=== PATIENT | male | born 1960 | race Caucasian/White ===

== ENCOUNTER → 2018-03-04 | Outpatient (CLI) | payer MEDICARE ==
[2018-03-04 13:56] LABS: Basophils # (A) 0.1 k/uL (0-0.2); Basophils % (A) 1 %; Eosinophils # (A) 0.3 k/uL (0-0.7); Eosinophils % (A) 3 %; HCT 51.6 % (39.0-53.0); Lymphocytes # (A) 2.7 k/uL (1.0-4.8); Lymphocytes % (A) 35 %; MCH 29.3 pg (25.0-35.0); MCV 88.9 fL (80.0-100.0); Mean Platelet Volume 6.4; Monocytes # (A) 0.6 k/uL (0-1.0); Monocytes % (A) 8 %; Neutrophils # (A) 3.8 k/uL (1.3-7.7); Neutrophils % (A) 51 %; Platelet Count 221 k/uL (150-450); RBC 5.81 m/uL (4.30-5.90); RDW 12.8 % (11.5-15.5); WBC 7.6 k/uL (3.8-10.6)
[2018-03-04 14:13] LABS: ALT 36 U/L (21-72); AST 33 U/L (17-59); Albumin 4.3 g/dL (3.5-5.0); Alkaline Phosphatase 65 U/L (38-126); Anion Gap 10 mmol/L; Blood Urea Nitrogen 18 mg/dL (9-20); Calcium 9.7 mg/dL (8.4-10.2); Carbon Dioxide 30 mmol/L (22-30); Chloride 101 mmol/L (98-107); Glucose 147 mg/dL (74-99); Potassium 4.6 mmol/L (3.5-5.1); Sodium 141 mmol/L (137-145); Total Bilirubin 0.8 mg/dL (0.2-1.3); Total Protein 7.3 g/dL (6.3-8.2)
== END | disposition home or self-care (01) ==
LOC: LABPAT 13:18
PROVIDERS: ATTEND Urology
DX: Z01.818 Encounter for other preprocedural examination (principal); N52.31 Erectile dysfunction following radical prostatectomy; I10 Essential (primary) hypertension; Z79.899 Other long term (current) drug therapy; Z01.812 Encounter for preprocedural laboratory examination
CPT/HCPCS: 36415; 80053; 85025; 93005

== ENCOUNTER 2018-03-11 07:06 | Day surgery (SDC) | payer MEDICARE ==
[2018-03-07 15:05] VITALS: BMI 28.8
--- NOTE | 2018-03-08 20:46 | P.GSHP ---
History of Present Illness H&P Date: 03/08/18 Chief Complaint: Erectile dysfunction secondary to radical prostatectomy The patient is a 57-year-old male with a history of prostate cancer which was diagnosed in 2009 and treated with radical prostatectomy in [facility] later that year. He has had no recurrence of his cancer and his last PSA was less than 0.1 in 01/2018. He developed erectile dysfunction following the radical prostatectomy. He initially used a vacuum assisted erectile device but said that it never worked well. He has tried Viagra and Cialis with no improvement. I discussed intracorporeal vasoactive injections but the patient says that he is not interested in this. I reviewed surgical treatment via placement of an inflatable penile prosthesis and patient wishes to proceed with this. He does have some mild dorsal angulation which was present prior to the radical prostatectomy but otherwise had no previous history of erectile dysfunction. - Constitutional Constitutional: Denies chronic pain - Cardiovascular Cardiovascular: Denies chest pain, Denies palpitations, Denies shortness of breath - Respiratory Respiratory: Denies wheezing - Gastrointestinal Gastrointestinal: Denies abdominal pain - Genitourinary (Male) Genitourinary: Reports erectile dysfunction, Reports incontinence (Rare with activity), Denies dysuria Past Medical History Past Medical History: Cancer, Chest Pain / Angina, Diabetes Mellitus, Hypertension, Myocardial Infarction ([place]), Prostate Disorder Additional Past Medical History / Comment(s): PROSTATE CANCER Treated with robotically assisted Radical prostatectomy in 2009., HEARING LOSS LEFT EAR- SOUNDS DISTORTED. Last Myocardial Infarction Date:: 2002 History of Any Multi-Drug Resistant Organisms: None Reported Past Surgical History: Coronary Bypass/CABG, Heart Catheterization With Stent, Orthopedic Surgery, Prostate Surgery (Robotically assisted laparoscopic Prostatectomy), Tonsillectomy Additional Past Surgical History / Comment(s): RIGHT ANKLE SURGERY, ARTHROSCOPY KNEES, RIGHT ELBOW X3, SINUS SURGERY , LEFT EAR X2. HEART CATH WITH STENT 2009 OR 2010, CABG 2002 Past Anesthesia/Blood Transfusion Reactions: Postoperative Nausea & Vomiting ( PONV) Date of Last Stent Placement:: 2009 OR 2010 Past Psychological History: No Psychological Hx Reported Smoking Status: Current every day smoker Past Alcohol Use History: Rare Additional Past Alcohol Use History / Comment(s): SMOKES < 1 PPD., SMOKING ON AND OFF FOR 28 YEARS. Past Drug Use History: None Reported - Past Family History Mother Family Medical History: Cancer Father Family Medical History: Cancer Medications and Allergies Home Medications Medication Instructions Recorded Confirmed Type Aspirin 325 mg PO DAILY 03/07/18 03/07/18 History Captopril [Capoten] 25 mg PO BID 03/07/18 03/07/18 History Clopidogrel [Plavix] 75 mg PO DAILY 03/07/18 03/07/18 History Glimepiride [Amaryl] 2 mg PO AC-BRKFST 03/07/18 03/07/18 History Metoprolol Succinate (ER) [Toprol 25 mg PO DAILY 03/07/18 03/07/18 History Xl] Multivitamins, Thera [Multivitamin 1 tab PO DAILY 03/07/18 03/07/18 History (formulary)] metFORMIN HCL [Glucophage] 1,000 mg PO BID 03/07/18 03/07/18 History Allergies Allergy/AdvReac Type Severity Reaction Status Date / Time amoxicillin Allergy Unknown Rash/Hives Verified 03/07/18 14:29 Surgical - Exam - General well developed, well nourished, no distress - Neck no masses, no lymphadectomy - Respiratory normal respiratory effort, clear to auscultation - Cardiovascular Rhythm: regular Abnormal Heart Sounds: no systolic murmur, no diastolic murmur - Abdomen Abdomen: soft, non tender, no organomegaly - Genitourinary normal penis with no external lesions, testicles non-tender, other (Prostatic fossa is empty) Assessment and Plan (1) Erectile dysfunction after radical prostatectomy Status: Acute Code(s): N52.31 - ERECTILE DYSFUNCTION FOLLOWING RADICAL PROSTATECTOMY SNOMED Code(s): 573970985804304 Plan: The patient will undergo placement of a [employer] three-piece inflatable penile prosthesis under general anesthesia. He is aware of the operative risks which include anesthesia, bleeding, early or delayed infection which might require removal of the prosthesis, mechanical dysfunction of the prosthesis, persistent pain or erosion of the prosthesis and loss of penile length compared with spontaneous erections.
[~2018-03-11 07:06] MED LIST: DEXAMETHASONE SOD PHOSPHATE 10 MG/ML 1 ML VIAL IV ONE; GENTAMICIN 180 MG in SODIUM CHLORIDE 0.9% 100 ML IVPB ONE; HYDROmorphone 1 MG/ML 1 ML SYRINGE IVP PRN; LACTATED RINGERS 1,000 ML IV SCH; LEVOFLOXACIN 500MG-D5W PMX 500 MG in DEXTROSE/WATER 1 100ML.BAG IVPB ONE; MIDAZOLAM 2 MG/2 ML VIAL IV PRN; ONDANSETRON 4 MG/2 ML VIAL IVP ONE; SCOPOLAMINE 1.5MG/72HR PATCH TRANSDERM ONE
[2018-03-11] MEDS ORDERED: LIDOCAINE 1% 20 ML VIAL (10MG/ML) FOR IV START INTRADERMA ONE (07:40)
[2018-03-11 07:42] VITALS: RESP 16
[2018-03-11 07:44] LABS: Glucose,Whole Blood 166 mg/dL (75-99)
[2018-03-11] MEDS ORDERED: PROPOFOL 10 MG/ML 20 ML VIAL IV ONE (08:59)
[2018-03-11] MEDS ORDERED: MIDAZOLAM 2 MG/2 ML VIAL ONE (08:59)
[2018-03-11] MEDS ORDERED: fentaNYL (PF) 50 MCG/ML 2 ML AMP ONE (08:59)
[2018-03-11 10:47] VITALS: TEMP 97.1
--- NOTE | 2018-03-11 10:55 | P.OP ---
Date of Procedure: 03/11/18 Preoperative Diagnosis: Erectile dysfunction secondary to radical prostatectomy Postoperative Diagnosis: Erectile dysfunction secondary to radical prostatectomy Procedure(s) Performed: Placement of AMS CX inflatable penile prosthesis Surgeon: Ryan Christianson Parks Recreation Coordinator #1: Diaz Teixeira Estimated Blood Loss (ml): 15 Pathology: none sent Condition: stable Disposition: PACU Indications for Procedure: The patient is a 57-year-old male with a history of diabetes who developed erectile dysfunction following radical prostatectomy. Treatment options have been reviewed and the patient wishes to proceed with placement of an inflatable penile prosthesis. The patient has some slight dorsal curvature and for that reason a CX prosthesis has been chosen. Description of Procedure: The patient was taken the operating suite where adequate spinal anesthesia and intravenous sedation was given. The hair in the suprapubic area was clipped. The lower abdomen and groins and genitalia were then prepped with Betadine soap , painted with Betadine solution and draped in a sterile fashion. A midline suprapubic incision was made. Bleeding vessels were controlled using electrocautery. Using blunt and sharp dissection the base of the penis at the penile pubic junction was exposed. The right and left corporal bodies were exposed near the penile pubic junction. 3 cm longitudinal incisions were then made in the right and left corporal bodies. The right and left corporal bodies were then dilated proximally and distally using successive Hegar dilators from [id number]-[id number]. Both right and left corporal bodies were measured and were 8 cm proximally and 12 cm distally. It was elected to implant a an 18-Portuguese CX inflatable penile prosthesis with a 2 cm rear-tip senior librarian. The right and left inflatable cylinders were placed into the right left corporal bodies using the Mariela introducer. The corporal bodies were then closed using running 3-0 Prolene. The inflatable cylinders were inflated and there appeared to be minimal dorsal curvature. The linea alba was then incised in the suprapubic area and a space was developed using blunt dissection posterior to the rectus muscles and anterior to the bladder. A 65 cm reservoir was placed in the suprapubic space and the tubing was tunneled out to the right of the pubis through the rectus sheath and fascia. The reservoir and prosthesis had previously been evacuated from air. 65 mL of sterile saline was placed into the reservoir. The connections between the reservoir and prosthesis were made using a straight connector. The prosthesis was pumped and appeared to function and deflate well. A pouch was made in the right anterior hemiscrotum using blunt dissection and the pump was placed in the pouch. The subcutaneous tissue was closed using running 3-0 chromic. The skin was closed using sharyn. Throughout the procedure who incisions were periodically irrigated with antibiotic solution. The patient's bladder was then drained with a 16-Portuguese catheter and the catheter was removed. Sterile dressing was applied to the incision. The patient tolerated the procedure well and left the operative room awake and in satisfactory condition. Blood loss was approximately 15 mL. Final sponge needle and instrument counts were reported as correct. The patient will be discharged later in the day if he is comfortable and will return for follow-up in 1 week and dictation
[2018-03-11 11:04] LABS: Glucose,Whole Blood 240 mg/dL (75-99)
[2018-03-11] MEDS ORDERED: INSULIN ASPART 100 UNIT/ML 1 ML 10 ML VIAL SQ ONE (11:20)
[2018-03-11 11:50] LABS: Glucose,Whole Blood 222 mg/dL (75-99)
[2018-03-11 13:29] VITALS: PULSE 64
[2018-03-11 13:30] VITALS: BP 108/61
== END 2018-03-11 14:39 | disposition home or self-care (01) ==
LOC: OR 07:06
PROVIDERS: ATTEND Urology
DX: N52.31 Erectile dysfunction following radical prostatectomy (principal); R94.31 Abnormal electrocardiogram [ECG] [EKG]; Z85.46 Personal history of malignant neoplasm of prostate; E11.9 Type 2 diabetes mellitus without complications; I10 Essential (primary) hypertension; H91.92 Unspecified hearing loss, left ear; I25.119 Atherosclerotic heart disease of native coronary artery with unspecified angina pectoris; I25.2 Old myocardial infarction; Z95.1 Presence of aortocoronary bypass graft; Z95.5 Presence of coronary angioplasty implant and graft; F17.210 Nicotine dependence, cigarettes, uncomplicated; Z79.84 Long term (current) use of oral hypoglycemic drugs; Z79.02 Long term (current) use of antithrombotics/antiplatelets; Z79.82 Long term (current) use of aspirin; Z79.899 Other long term (current) drug therapy; Z88.0 Allergy status to penicillin
CPT/HCPCS: 54405; C1813; J2250; J1580; J1100; J2405; J1956; J3010; J2704

== ENCOUNTER → 2018-07-28 | Outpatient (CLI) | payer MEDICARE ==
--- NOTE | 2018-07-28 16:04 | MR ---
EXAMINATION TYPE: MR lumbar spine wo con DATE OF EXAM: 07/28/2018 COMPARISON: NONE HISTORY: Lumbar pain TECHNIQUE: T1 and T2 axial and sagittal images of the lumbar spine are submitted. FINDINGS: There is no abnormal signal seen within the visualized spinal cord or paraspinal soft tissu es. There appears be metallic artifact in the right paraspinal soft tissues near the thoracolumbar ju nction. Hypertrophic change involving the SI joints noted. At L1-2 there is no disc herniation or canal stenosis. No foraminal encroachment. At L2-3 there is no disc herniation or canal stenosis. Neural foramina patent. There is very mild dis c desiccation and circumferential disc bulging. At L3-4 there is degenerative disc disease with diffuse disc bulging or protrusion. There is mild eff acement of thecal sac. Hypertrophic change of the facets and ligamentum flavum contribute to mild elizabeth ateral foraminal encroachment and mild central stenosis. At L4-5 there is degenerative disc disease with diffuse disc bulging with a right lateral disc protru aida or herniation resulting in compression of the right nerve root. Discogenic marrow changes are no rodolfo. At L5-S1 there is facet arthropathy. No foraminal encroachment or disc herniation. No Canal stenosis. IMPRESSION: 1. At L4-L5 there is diffuse disc bulging resulting in effacement of thecal sac with hypertrophic jose nge of the facets and ligamentum flavum. There is mild central stenosis. However, there is a far righ t lateral disc herniation resulting in severe right-sided foraminal encroachment and nerve root compr ession best noted on sagittal image 10 and 11. Correlate for right-sided radiculopathy at this level. 2. Disc bulging or broad-based protrusion with hypertrophic changes L3-L4 results in bilateral forami nal encroachment and mild canal stenosis.
== END | disposition home or self-care (01) ==
LOC: RADMRIMAIN 15:06
PROVIDERS: ATTEND Internal Medicine
DX: M48.061 Spinal stenosis, lumbar region without neurogenic claudication (principal); M51.26 Other intervertebral disc displacement, lumbar region
CPT/HCPCS: 72148

== ENCOUNTER → 2019-03-22 | Outpatient (CLI) | payer MEDICARE ==
--- NOTE | 2019-03-22 22:50 | MR ---
EXAMINATION TYPE: MR knee RT wo con DATE OF EXAM: 03/22/2019 COMPARISON: NONE HISTORY: Effusion, pain, primary osteoarthritis, and other internal derangements per order. Pain and swelling for a couple weeks in both knees per patient. TECHNIQUE: Multiplanar, multisequence images of the knee is performed without IV contrast. FINDINGS: MEDIAL MENISCUS: Anterior horn is intact without tear. Posterior horn shows triangular increased sign al extending to the inferior articular surface. LATERAL MENISCUS: Anterior horn shows globular increased signal does not definitively extend to artic ular surface. Posterior horn shows more marked increased signal extending to inferior articular surfa ce sagittal image 24. CRUCIATE LIGAMENTS: The anterior and posterior cruciate ligaments are intact and unremarkable. COLLATERAL LIGAMENTS: The medial collateral ligament and lateral collateral ligament complex are inta ct and unremarkable. EXTENSOR MECHANISM: Visualized quadriceps and patellar tendons are intact. EFFUSION: There is large suprapatellar joint effusion. POPLITEAL CYST: No popliteal/mcpherson cyst. TRICOMPARTMENT SPACES: Mild to moderate tricompartment joint space loss and spurring. CARTILAGE: Thinning of articular cartilage most prominent lateral tibial femoral compartment where fu ll thickness loss is present lateral aspect. BONE MARROW SIGNAL: Reactive osseous changes distal lateral femoral condyle lateral aspect with areas of diminished T1 and increased T2 signal seen best coronal image 20 and sagittal image image 25 chavo uring approximately 15 mm AP diameter and 8 mm transversely. OTHER: No additional significant abnormality is appreciated. IMPRESSION: 1. Large suprapatellar joint effusion. 2. Fairly moderate tricompartment degenerative changes most prominent lateral tibiofemoral compartmen t as detailed above. 3. Full-thickness tear posterior horn of lateral meniscus. Probable intrasubstance tear anterior horn of lateral meniscus. 4. Full-thickness tear posterior horn of medial meniscus.
== END | disposition home or self-care (01) ==
LOC: RADMRIMAIN 07:36
PROVIDERS: ATTEND Orthopaedic Surgery
DX: S83.241A Other tear of medial meniscus, current injury, right knee, initial encounter (principal); S83.281A Other tear of lateral meniscus, current injury, right knee, initial encounter; M17.11 Unilateral primary osteoarthritis, right knee

== ENCOUNTER → 2020-07-01 | Outpatient (CLI) | payer MEDICARE ==
[2020-07-01 15:44] LABS: African American GFR (CKD) 84.1 (60.0-200.0); Anion Gap 7.6 mmol/L (4.00-12.00); BUN/Creat Ratio 13.64 Ratio (12.00-20.00); Calcium 9.9 mg/dL (8.7-10.3); Carbon Dioxide 30.4 mmol/L (21.6-31.8); Non-African American GFR(CKD) 72.6 (60.0-200.0); Potassium 5.5 mmol/L (3.5-5.5)
[2020-07-01 17:48] LABS: Hemoglobin A1C 10.3 % (4.0-6.0)
== END | disposition home or self-care (01) ==
LOC: LABWHC1 09:40
PROVIDERS: ATTEND Internal Medicine
DX: E11.9 Type 2 diabetes mellitus without complications (principal)
CPT/HCPCS: 36415; 80048; 83036

== ENCOUNTER 2020-07-05 18:10 | Emergency (ER) | payer MEDICARE ==
[2020-07-05 18:18] VITALS: BP 179/95; PULSE 72; RESP 18; TEMP 98
[2020-07-05] MEDS ORDERED: HYDROcodone/APAP 5-325MG 1 EACH TAB PO STA (18:25)
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
== END 2020-07-05 20:00 | disposition home or self-care (01) ==
LOC: EC 18:10
DX: M25.551 Pain in right hip (principal); S09.90XA Unspecified injury of head, initial encounter; E11.9 Type 2 diabetes mellitus without complications; I10 Essential (primary) hypertension; F17.200 Nicotine dependence, unspecified, uncomplicated; Z79.84 Long term (current) use of oral hypoglycemic drugs; Z79.899 Other long term (current) drug therapy; Z88.0 Allergy status to penicillin; V86.52XA Driver of snowmobile injured in nontraffic accident, initial encounter; Y92.009 Unspecified place in unspecified non-institutional (private) residence as the place of occurrence of the external cause; Y93.29 Activity, other involving ice and snow
CPT/HCPCS: 70450; 72100; 72125; 72192; 99285

== ENCOUNTER → 2020-09-13 | Outpatient (CLI) | payer MEDICARE ==
--- NOTE | 2020-09-13 16:27 | MR ---
EXAMINATION TYPE: MR lumbar spine wo con DATE OF EXAM: 09/13/2020 COMPARISON: Prior lumbar MRI 07/28/2018, plain film 07/05/2020 HISTORY: Chronic LBP, RLE radiculopathy. TECHNIQUE: Multiplanar, multisequence images of the lumbar spine were acquired. L1-L2: Normal disc appearance without desiccation. No herniation, protrusion or disc bulging. No ca nal stenosis is present. Foramina are patent bilaterally. L2-L3: Mild posterior disc bulge causes only slight anterior mass effect on the thecal sac. No signif icant foraminal encroachment. L3-L4: Posterior broad-based disc bulge causes mild anterior mass effect on the thecal sac, circumfer ential extension encroaches minimally on the inferior aspect of the foramina bilaterally. L4-L5: There is a posterior broad-based disc bulge causing anterior mass effect on the thecal sac, la teral disc herniation towards the right is again seen. There is facet arthropathy with hypertrophy li gamentum flavum. Circumferential extension of endplate disc complex as well as a lateral disc herniat ion again causes some right-sided foraminal encroachment similar to prior exam. L5-S1: Normal disc appearance without desiccation. No herniation, protrusion or disc bulging. No ca nal stenosis is present. Foramina are patent bilaterally. Lumbar segments are intact. No paraspinal masses are identified. Conus medullaris has a normal appe arance. There is a mild spinal curvature. Multilevel spondylosis is present with endplate discogenic marrow signal changes. There is been progression of loss of disc height signal at L4-5, L3-4, there i s associated vacuum phenomenon. There is no significant spinal stenosis. Suspect a conjoined nerve ro ot proximally and L5, similar appearance to prior exam. IMPRESSION: Degenerative disc disease, lateral disc herniation is similar to prior exam.
== END | disposition home or self-care (01) ==
LOC: RADMRIMAIN 15:13
PROVIDERS: ATTEND Orthopaedic Surgery Orthopaedic Surgery of the Spine
DX: M51.16 Intervertebral disc disorders with radiculopathy, lumbar region (principal); M47.26 Other spondylosis with radiculopathy, lumbar region
CPT/HCPCS: 72148

== ENCOUNTER → 2020-10-09 | Outpatient (CLI) | payer MEDICARE ==
--- NOTE | 2020-10-09 09:00 | P.CONS ---
History of Present Illness - Reason for Consult Consult date: 10/09/20 - Chief Complaint Low back and right leg pain - History of Present Illness This is a 60-year-old gentleman with history of chronic lower back pain with radiation to the right leg down to the right knee without numbness or tingling. The patient also denies any bowel or bladder dysfunction however he has some weakness in the right leg and uses crutches for ambulation. The pain increases by prolonged activities and improves by resting. The patient had lumbar epidural steroid injection a few years ago which helped him significantly with his pain however his bill was too high and he decided not to do that again. The patient takes Plavix and aspirin due to history of coronary artery disease and previous CABG he also has history of asg-pfmjynr-sxcjjwvoz diabetes. The patient was referred by Dr. Stanton for a trial of epidural steroid injections. He had lumbar MRI in August 2020 which showed disc herniation at the L4 5 level towards the right side facet arthropathy with hypertrophy of the ligamentum flavum. Review of Systems Respiratory: Denies cough Gastrointestinal: Denies abdominal pain, Denies diarrhea, Denies nausea, Denies vomiting Musculoskeletal: Reports as per HPI Neurological: Reports as per HPI Endocrine: Reports as per HPI Past Medical History Past Medical History: Cancer, Diabetes Mellitus, Hypertension, Musculoskeletal Disorder, Prostate Disorder Additional Past Medical History / Comment(s): hx. prostate cancer 2010, herniated discs History of Any Multi-Drug Resistant Organisms: None Reported Past Surgical History: Coronary Bypass/CABG, Heart Catheterization With Stent, Orthopedic Surgery, Prostate Surgery Additional Past Surgical History / Comment(s): R ankle, R elbow x3, B knee arthroscopy, L ear, sinus surg., triple bypass 17 yrs. ago, prostatectomy Past Anesthesia/Blood Transfusion Reactions: Postoperative Nausea & Vomiting (PONV) Date of Last Stent Placement:: 2019 Past Psychological History: No Psychological Hx Reported Smoking Status: Current every day smoker Past Alcohol Use History: Rare Additional Past Alcohol Use History / Comment(s): <ppd on & off for 40 yrs. Past Drug Use History: Marijuana Additional Drug Use History / Comment(s): occasional use Medications and Allergies Home Medications Medication Instructions Recorded Confirmed Type Aspirin 81 mg PO DAILY 03/07/18 10/07/20 History Clopidogrel [Plavix] 75 mg PO DAILY 03/07/18 10/07/20 History Glimepiride [Amaryl] 2 mg PO BID 03/07/18 10/07/20 History Metoprolol Succinate (ER) [Toprol 25 mg PO DAILY 03/07/18 10/07/20 History Xl] Multivitamins, Thera [Multivitamin 1 tab PO DAILY 03/07/18 10/07/20 History (formulary)] captopriL [Capoten] 25 mg PO DAILY 03/07/18 10/07/20 History metFORMIN HCL [Glucophage] 1,000 mg PO BID 03/07/18 10/07/20 History oxyCODONE-APAP 10-325MG [Percocet 1 tab PO Q8HR PRN 10/07/20 10/07/20 History 10-325 mg] Allergies Allergy/AdvReac Type Severity Reaction Status Date / Time amoxicillin Allergy Unknown Rash/Hives Verified 10/07/20 14:33 Physical Exam Vitals: Vital Signs Temp Pulse Resp BP Pulse Ox 10/09/20 08:46 97.9 F 74 16 166/77 98 - Constitutional General appearance: average body habitus - EENT Eyes: PERRLA - Neurologic Decreased right knee flexion and extension to 4 out of 5 and right hip flexion and extension to 4 out of 5. Straight leg raising test negative bilaterally Positive tenderness in the lumbar paravertebral musculature laterally Neurologic: CNII-XII intact - Psychiatric Psychiatric: A&O x's 3, appropriate affect, intact judgment & insight Assessment and Plan Plan: This is a 60-year-old gentleman with history of diabetes, coronary artery disease, treatment with Plavix and aspirin and right lumbar radiculopathy due to lumbar disc herniation at the L4 5 level. The patient may benefit from a trial of lumbar epidural steroid injection at the L4 5 level in the right paramedian approach under fluoroscopic guidance. 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 Stanton for the referral
== END ==
CPT/HCPCS: 99211

== ENCOUNTER 2020-11-05 06:09 | Day surgery (SDC) | payer MEDICARE ==
[2020-11-04 10:29] VITALS: BMI 27.3
[2020-11-05 06:32] VITALS: TEMP 97.8
[2020-11-05 06:41] LABS: Glucose,Whole Blood 163 mg/dL (75-99)
[2020-11-05] MEDS: LACTATED RINGERS 1,000 ML IV SCH ×2 (06:42→07:02)
[2020-11-05] MEDS ORDERED: IOPAMIDOL M200 10 ML VIAL ONE (07:03)
[2020-11-05] MEDS ORDERED: fentaNYL (PF) 50 MCG/ML 2 ML AMP ONE (07:03)
[2020-11-05] MEDS ORDERED: MIDAZOLAM 2 MG/2 ML VIAL ONE (07:03)
[2020-11-05] MEDS ORDERED: methylPREDNISolone ACETATE 40 MG/ML 1 ML VIAL ONE (07:03)
--- NOTE | 2020-11-05 07:16 | P.PCN ---
Date of Procedure: 11/05/20 Procedure(s) Performed: PREOPERATIVE DIAGNOSIS: 1- Lumbar herniated Disc Diseases 2-Lumbar Radiculopathy POSTOPERATIVE DIAGNOSIS: Same as preop diagnosis. PROCEDURE 1. Lumbar epidural steroid injection under fluoroscopic guidance at the L4-5 level. (Fluoroscopy imaging was available in radiology department) 2. Lumbar epidurogram. ANESTHESIA: Local with 1% lidocaine 3 ml and , moderate sedation with intravenous Versed 2 mg ,and fentanyle 50 Mcg EBL: Minimal PROCEDURE INDICATION: The patient with low back pain and radiculitis symptoms unresponsive to conservative treatment. Fluoroscopy was used to optimize visualization of the needle placement and to maximize safety. PROCEDURE DESCRIPTION / TECHNIQUE: The patient was seen and identified in the preoperative area. Risks, benefits, complications including but not limited to infections ,bleeding ,allergic reaction to the medications ,nerve damage and not complete pain releife , and alternatives were discussed with the patient. The patient agreed to proceed with the procedure and signed the consent. IV was started, and vital signs were stable. Patient was taken to the OR and time out was completed. The patient was placed in the prone position on procedure table and a pillow was placed under the abdomen to reduce lumbar lordosis. The lumbosacral area was prepped and draped in the usual sterile fashion.ere closely monitored during the procedure. Conscious sedation was used during the procedure to decrease patients anxiety. Vital signs was monitered during the entire procedure. Using anterior-posterior fluoroscopy, the L4-5 interlaminar space was identified and the skin over this site was marked and then infiltrated with 1% lidocaine subcutaneously. Subsequently, a 20-gauge Tuohy epidural needle was inserted and advanced toward the epidural space using the ``Loss of resistance technique and guided by AP and lateral fluoroscopy. The correct needle position in the epidural space was verified with the injection of 2 mL of the water soluble contrast dye Isovue 200 contrast and observing an excellent epidurogram with the epidural spread of the dye, after negative aspiration for blood and CSF and in the absence of paresthesias. Again after negative aspiration, a 6 ml mixture containing 40 mg of Depo-medrol , and 2 ml of preservative free Normal Saline, and 2 ml of preservative free lidocaine 1% solution was injected and a washout of epidurogram was seen. Needle was withdrawn intact, skin was cleansed, and bandages were applied. COMPLICATIONS: None DISPOSITION / PLANS: The patient was placed in a supine position and transferred to the recovery area in a stable condition for observation. There was no evidence of lower extremity motor or sensory deficit after the procedure. Patient was discharged from the recovery room after meeting discharge criteria. Home discharge instructions were given to the patient by the staff. The patient was reexamined prior to discharge. The patient will schedule a follow up in the clinic in 2-4 weeks. last dose of Plavix was 1 week ago, and will resume Plavix 12 hours after the procedure
[2020-11-05] MEDS ORDERED: IV FLUID CONTINUATION 500 ML IV ONE ×2 (07:20)
[2020-11-05 07:40] VITALS: BP 130/65; PULSE 56; RESP 18
--- NOTE | 2020-11-05 08:31 | FL ---
EXAMINATION TYPE: FL guided pain mgmt statistic DATE OF EXAM: 11/05/2020 HISTORY: Fluoroscopy time 2 seconds of fluoroscopy provided. IMPRESSION: 1. Fluoroscopy time.
== END 2020-11-05 07:52 | disposition home or self-care (01) ==
LOC: ORPAIN 06:09
PROVIDERS: ATTEND Specialist
DX: M51.16 Intervertebral disc disorders with radiculopathy, lumbar region (principal); Z88.0 Allergy status to penicillin; Z79.02 Long term (current) use of antithrombotics/antiplatelets; I25.10 Atherosclerotic heart disease of native coronary artery without angina pectoris; E11.9 Type 2 diabetes mellitus without complications; Z79.82 Long term (current) use of aspirin
CPT/HCPCS: 62323; J2250; J1030; J3010; Q9966

== ENCOUNTER 2021-05-11 20:43 | Emergency (ER) | payer MEDICARE ==
[2021-05-11 21:05] VITALS: BP 153/82; PULSE 96; RESP 18; TEMP 98.2
[2021-05-11] MEDS ORDERED: LIDOCAINE 1% INJ 10MG/ML (20 ML MDV) SQ ONE (22:12)
[2021-05-11] MEDS ORDERED: KETOROLAC 15 MG/ML 1 ML VIAL IM STA (22:12)
[2021-05-11] MEDS ORDERED: SULFAMETH-TMP DS STARTER PACK 2 TAB BTL PO STA (22:14)
[2021-05-11] MEDS ORDERED: CEPHALEXIN 500MG STARTER PACK 4 CAP BTL PO STA (22:15)
--- NOTE | 2021-05-11 22:50 | XR ---
EXAMINATION TYPE: XR finger LT DATE OF EXAM: 05/11/2021 COMPARISON: NONE HISTORY: Middle finger swelling TECHNIQUE: 3 views FINDINGS: There is some spurring at the DIP joint. There is soft tissue swelling around the middle fi nger. I see no fracture nor dislocation. There is spurring at the MP joints. There are no erosions. T here is small old chip fracture of the osteophyte on the posterior aspect of the distal phalanx of th e middle finger. IMPRESSION: Soft tissue swelling. No acute fracture seen.
--- NOTE | 2021-05-11 23:16 | ED ---
Skin/Abscess/FB HPI - General Chief complaint: Skin/Abscess/Foreign Body Stated complaint: L Finger Swelling Time Seen by Provider: 05/11/21 21:33 Source: patient Mode of arrival: ambulatory Limitations: no limitations - History of Present Illness Initial comments: 61 year-old male patient presents for evaluation of left middle finger swelling and pain. States about 6 days ago he cut his finger on a knife he was using to skin a deer. States that he has been squeezing pus out of it for the last couple of days. He denies any fever or chills. States it feels stiff but he is able to move it. Does have history of Type II diabetes, takes metformin. He denies taking anything for pain. No other injuries or concerns. - Related Data Home Medications Medication Instructions Recorded Confirmed Aspirin 81 mg PO DAILY 03/07/18 11/05/20 Clopidogrel [Plavix] 75 mg PO DAILY 03/07/18 11/05/20 Glimepiride [Amaryl] 2 mg PO BID 03/07/18 11/05/20 Metoprolol Succinate (ER) [Toprol 25 mg PO DAILY 03/07/18 11/05/20 Xl] Multivitamins, Thera [Multivitamin 1 tab PO DAILY 03/07/18 11/05/20 (formulary)] captopriL [Capoten] 25 mg PO DAILY 03/07/18 11/05/20 metFORMIN HCL [Glucophage] 1,000 mg PO BID 03/07/18 11/05/20 oxyCODONE-APAP 10-325MG [Percocet 1 tab PO Q8HR PRN 10/07/20 11/05/20 10-325 mg] Previous Rx's Medication Instructions Recorded Cephalexin [Keflex] 500 mg PO Q6HR #40 cap 05/11/21 Sulfamethoxazole/Trimethoprim 1 each PO BID #20 tablet 05/11/21 [Bactrim DS 800-160 mg] Allergies Allergy/AdvReac Type Severity Reaction Status Date / Time amoxicillin Allergy Unknown Rash/Hives Verified 05/11/21 21:05 Review of Systems ROS Statement: Those systems with pertinent positive or pertinent negative responses have been documented in the HPI. ROS Other: All systems not noted in ROS Statement are negative. Past Medical History Past Medical History: Cancer, Diabetes Mellitus, Hypertension, Musculoskeletal Disorder, Prostate Disorder Additional Past Medical History / Comment(s): hx. prostate cancer 2010, herniated discs History of Any Multi-Drug Resistant Organisms: None Reported Past Surgical History: Coronary Bypass/CABG, Heart Catheterization With Stent, Orthopedic Surgery, Prostate Surgery Additional Past Surgical History / Comment(s): R ankle, R elbow x3, B knee arthroscopy, L ear, sinus surg., triple bypass 17 yrs. ago, prostatectomy Past Anesthesia/Blood Transfusion Reactions: Postoperative Nausea & Vomiting (PONV) Date of Last Stent Placement:: 2019 Past Psychological History: No Psychological Hx Reported Smoking Status: Current every day smoker Past Alcohol Use History: None Reported Past Drug Use History: None Reported General Exam Limitations: no limitations General appearance: alert, in no apparent distress, other (This is a well developed, well nourished adult male in no acute distress. ) Respiratory exam: Present: normal lung sounds bilaterally. Absent: respiratory distress, wheezes, rales, rhonchi, stridor Cardiovascular Exam: Present: regular rate, normal rhythm, normal heart sounds. Absent: systolic murmur, diastolic murmur, rubs, gallop, clicks Extremities exam: Present: full ROM, normal capillary refill, other (Swelling noted over the middle phalanx of the left middle finger. Full ROM intact. No tendon sheath tenderness. Possible abscess with fluctuance. No drainage. Radial pulse 2+.). Absent: tenderness, pedal edema, joint swelling, calf tenderness Neurological exam: Present: alert, oriented X3, CN II-XII intact Psychiatric exam: Present: normal affect, normal mood Skin exam: Present: warm, dry, intact, normal color. Absent: rash Course Vital Signs 05/11/21 21:02 Temperature 98.2 F Pulse Rate 96 Respiratory 18 Rate Blood Pressure 153/82 O2 Sat by Pulse 97 Oximetry Procedures - Incision & Drainage Consent Obtained: verbal consent Indication: Abscess Site: upper extremity (Left middle finger) Size (cm): 1 Anesthetic Used: lidocaine 1% Amount (mLs): 4 (Digital block) I&D Cleaning Method: Betadine Scalpel Used: #11 I&D Drainage Obtained: Blood Culture Obtained?: Yes Patient Tolerated Procedure: well, no complications Medical Decision Making - Medical Decision Making 61-year-old male patient presented to the emergency department today for evaluat ion of left middle finger. Physical examination did reveal soft tissue swelling localized over the middle phalanx. There is possible abscess. No tendon sheath tenderness. He exhibits full range of motion. He is afebrile normal vital signs. X-ray was negative. I did attempt incision and drainage but only received bloody output. He was sent for culture. He'll be started on Keflex and Bactrim. Be discharged follow-up with hand specialist Dr. Chan. Return parameters were discussed in detail. He verbalizes understanding and agrees with this plan. Case discussed with my attending Dr. Jennings. - Radiology Data Radiology results: report reviewed, image reviewed 3 views of the left middle finger shows soft tissue swelling. No acute fracture seen. Disposition Clinical Impression: Cellulitis of left middle finger, Abscess of left middle finger Disposition: HOME SELF-CARE Condition: Good Instructions (If sedation given, give patient instructions): Cellulitis (ED), Abscess Incision and Drainage (ED) Additional Instructions: Take medications as directed. Follow-up with the primary care physician for recheck in 1-2 days. Return immediately if he develops fevers or symptoms seemed to worsen. Follow-up customer experience specialist for further evaluation as soon as possible. Prescriptions: Sulfamethoxazole/Trimethoprim [Bactrim DS 800-160 mg] 1 each PO BID #20 tablet Cephalexin [Keflex] 500 mg PO Q6HR #40 cap Is patient prescribed a controlled substance at d/c from ED?: No Referrals: Noe Heller MD [Primary Care Provider] - 1-2 days Ting Chan DO [Doctor of Osteopathic Medicine] - 1-2 days Time of Disposition: 23:16
== END 2021-05-11 23:38 | disposition home or self-care (01) ==
LOC: EC 20:43
DX: L02.512 Cutaneous abscess of left hand (principal); L03.012 Cellulitis of left finger; E11.9 Type 2 diabetes mellitus without complications; I10 Essential (primary) hypertension; F17.200 Nicotine dependence, unspecified, uncomplicated; Z79.82 Long term (current) use of aspirin; Z79.02 Long term (current) use of antithrombotics/antiplatelets; Z79.84 Long term (current) use of oral hypoglycemic drugs; Z88.0 Allergy status to penicillin; Z85.46 Personal history of malignant neoplasm of prostate; Z95.1 Presence of aortocoronary bypass graft
CPT/HCPCS: 99283; 96372; 10060; 73140; J2001; J1885

== ENCOUNTER 2021-08-10 02:34 | Inpatient (IN) | payer MEDICARE ==
[2021-08-10] MEDS ORDERED: SODIUM CHLORIDE 0.9% 1,000 ML IV STA (03:06)
[2021-08-10 03:21] LABS: Glucose,Whole Blood 456 mg/dL (75-99)
[2021-08-10 03:31] LABS: Basophils # (A) 0.1 k/uL (0-0.2); Basophils % (A) 1 %; Eosinophils # (A) 0.1 k/uL (0-0.7); Eosinophils % (A) 1 %; HCT 53.9 % (39.0-53.0); HGB 18.3 gm/dL (13.0-17.5); Lymphocytes # (A) 1.6 k/uL (1.0-4.8); Lymphocytes % (A) 22 %; MCV 88.1 fL (80.0-100.0); Mean Platelet Volume 8.4; Monocytes # (A) 0.6 k/uL (0-1.0); Monocytes % (A) 9 %; Neutrophils # (A) 4.8 k/uL (1.3-7.7); Neutrophils % (A) 66 %; Platelet Count 137 k/uL (150-450); RBC 6.12 m/uL (4.30-5.90); RDW 13.1 % (11.5-15.5); WBC 7.3 k/uL (3.8-10.6)
[2021-08-10 03:34] LABS: ALT 23 U/L (4-49); AST 43 U/L (17-59); African American GFR (CKD) >90 (>60 ml/min/1.73 sqM); Albumin 4.5 g/dL (3.5-5.0); Alkaline Phosphatase 101 U/L (38-126); Anion Gap 11 mmol/L; Blood Urea Nitrogen 19 mg/dL (9-20); Calcium 9.4 mg/dL (8.4-10.2); Carbon Dioxide 22 mmol/L (22-30); Chloride 96 mmol/L (98-107); Glucose 447 mg/dL (74-99); Non-African American GFR(CKD) >90 (>60 ml/min/1.73 sqM); Sodium 129 mmol/L (137-145); Total Bilirubin 1.6 mg/dL (0.2-1.3); Total Protein 7.9 g/dL (6.3-8.2)
--- NOTE | 2021-08-10 03:38 | CT ---
EXAMINATION TYPE: CT brain wo con for TPA DATE OF EXAM: 08/10/2021 COMPARISON: 07/05/2020 HISTORY: stroke CT DLP: 1208.3 mGycm Automated exposure control for dose reduction was used. Images of the brain obtained with no contrast. Ventricles have normal size. There is hypodensity in the periventricular white matter in both cerebra l hemispheres. There is no mass effect or midline shift. There is no evidence of intracranial hemorrh age. The calvarium is intact. There is very limited pneumatization of the right mastoid sinus. There is previous surgery left mastoid sinus. There is a 5 mm hypodensity in medial right thalamus consiste nt with old lacunar infarct. IMPRESSION: White matter hypodensity consistent with chronic small vessel ischemia or demyelinating disease witho ut change compared to old exam. No acute abnormality. Old lacunar infarct right thalamus.
--- NOTE | 2021-08-10 03:42 | ED ---
Neuro HPI - General Chief Complaint: Neuro Symptoms/Deficit Stated Complaint: Neuro Deficits Time Seen by Provider: 08/10/21 02:42 Source: patient, RN notes reviewed, old records reviewed Mode of arrival: ambulatory - History of Present Illness Is the patient presenting with stroke symptoms?: Yes Last Known Well Date: 08/09/21 Last Known Well Time: 19:00 -: days(s) (6) Initial Comments: This is a 61 male to the ER for evaluation. Patient presents today for evaluation of strokelike symptoms. Patient also noted significant left-sided weakness and left-sided facial droop that began around 7 PM last night and has been increasing. Patient also recently vision in urgent care where he felt like he is not fatigued and noticed facility of frustrated infection. Patient comes in no ER with his . No headache. No nausea vomiting or diarrhea. No other complaints. Location: left face, left arm, ataxia History of same: Yes Place: home Severity: moderate Quality: weak, numb, tingling Improves With: none Worsens With: none On Anticoagulants: Yes Context: gradual onset Associated Symptoms: malaise, weakness Treatments Prior to Arrival: none - Related Data Home Medications: Home Medications Medication Instructions Recorded Confirmed Aspirin 81 mg PO DAILY 03/07/18 11/05/20 Clopidogrel [Plavix] 75 mg PO DAILY 03/07/18 11/05/20 Glimepiride [Amaryl] 2 mg PO BID 03/07/18 11/05/20 Metoprolol Succinate (ER) [Toprol 25 mg PO DAILY 03/07/18 11/05/20 Xl] Multivitamins, Thera [Multivitamin 1 tab PO DAILY 03/07/18 11/05/20 (formulary)] captopriL [Capoten] 25 mg PO DAILY 03/07/18 11/05/20 metFORMIN HCL [Glucophage] 1,000 mg PO BID 03/07/18 11/05/20 oxyCODONE-APAP 10-325MG [Percocet 1 tab PO Q8HR PRN 10/07/20 11/05/20 10-325 mg] Previous Rx's Medication Instructions Recorded Cephalexin [Keflex] 500 mg PO Q6HR #40 cap 05/11/21 Sulfamethoxazole/Trimethoprim 1 each PO BID #20 tablet 05/11/21 [Bactrim DS 800-160 mg] Allergies/Adverse Reactions: Allergies Allergy/AdvReac Type Severity Reaction Status Date / Time amoxicillin Allergy Unknown Rash/Hives Verified 05/11/21 21:05 Review of Systems ROS Statement: Those systems with pertinent positive or pertinent negative responses have been documented in the HPI. ROS Other: All systems not noted in ROS Statement are negative. General Exam General appearance: alert, in no apparent distress Head exam: Present: atraumatic, normocephalic, normal inspection Eye exam: Present: normal appearance, PERRL, EOMI. Absent: scleral icterus, con junctival injection, periorbital swelling ENT exam: Present: normal exam, mucous membranes moist Neck exam: Present: normal inspection. Absent: tenderness, meningismus, lymphadenopathy Respiratory exam: Present: normal lung sounds bilaterally. Absent: respiratory distress, wheezes, rales, rhonchi, stridor Cardiovascular Exam: Present: regular rate, normal rhythm, normal heart sounds. Absent: systolic murmur, diastolic murmur, rubs, gallop, clicks GI/Abdominal exam: Present: soft, normal bowel sounds. Absent: distended, tenderness, guarding, rebound, rigid Extremities exam: Present: normal inspection, full ROM, normal capillary refill. Absent: tenderness, pedal edema, joint swelling, calf tenderness Back exam: Present: normal inspection Neurological exam: Present: alert, oriented X3, CN II-XII intact Psychiatric exam: Present: normal affect, normal mood Skin exam: Present: warm, dry, intact, normal color. Absent: rash Stroke MDM - Lab Data Result diagrams: 08/10/21 03:10 08/10/21 03:10 Lab Results 08/10/21 08/10/21 08/10/21 Range/Units 03:09 03:10 03:10 WBC 7.3 (3.8-10.6) k/uL RBC 6.12 H (4.30-5.90) m/uL Hgb 18.3 H (13.0-17.5) gm/dL Hct 53.9 H (39.0-53.0) % MCV 88.1 (80.0-100.0) fL MCH 30.0 (25.0-35.0) pg MCHC 34.0 (31.0-37.0) g/dL RDW 13.1 (11.5-15.5) % Plt Count 137 L (150-450) k/uL MPV 8.4 Neutrophils % 66 % Lymphocytes % 22 % Monocytes % 9 % Eosinophils % 1 % Basophils % 1 % Neutrophils # 4.8 (1.3-7.7) k/uL Lymphocytes # 1.6 (1.0-4.8) k/uL Monocytes # 0.6 (0-1.0) k/uL Eosinophils # 0.1 (0-0.7) k/uL Basophils # 0.1 (0-0.2) k/uL PT 11.0 (9.0-12.0) sec INR 1.0 (<1.2) APTT 22.2 (22.0-30.0) sec Sodium (137-145) mmol/L Potassium (3.5-5.1) mmol/L Chloride (98-107) mmol/L Carbon Dioxide (22-30) mmol/L Anion Gap mmol/L BUN (9-20) mg/dL Creatinine (0.66-1.25) mg/dL Est GFR (CKD-EPI)AfAm (>60 ml/min/1.73 sqM) Est GFR (CKD-EPI)NonAf (>60 ml/min/1.73 sqM) Glucose (74-99) mg/dL POC Glucose (mg/dL) 456 H (75-99) mg/dL POC Glu Weight Clerk SUSANNE KimmyGianimanimian Calcium (8.4-10.2) mg/dL Total Bilirubin (0.2-1.3) mg/dL AST (17-59) U/L ALT (4-49) U/L Alkaline Phosphatase (38-126) U/L Troponin I (0.000-0.034) ng/mL Total Protein (6.3-8.2) g/dL Albumin (3.5-5.0) g/dL 08/10/21 08/10/21 Range/Units 03:10 03:10 WBC (3.8-10.6) k/uL RBC (4.30-5.90) m/uL Hgb (13.0-17.5) gm/dL Hct (39.0-53.0) % MCV (80.0-100.0) fL MCH (25.0-35.0) pg MCHC (31.0-37.0) g/dL RDW (11.5-15.5) % Plt Count (150-450) k/uL MPV Neutrophils % % Lymphocytes % % Monocytes % % Eosinophils % % Basophils % % Neutrophils # (1.3-7.7) k/uL Lymphocytes # (1.0-4.8) k/uL Monocytes # (0-1.0) k/uL Eosinophils # (0-0.7) k/uL Basophils # (0-0.2) k/uL PT (9.0-12.0) sec INR (<1.2) APTT (22.0-30.0) sec Sodium 129 L (137-145) mmol/L Potassium 4.8 (3.5-5.1) mmol/L Chloride 96 L (98-107) mmol/L Carbon Dioxide 22 (22-30) mmol/L Anion Gap 11 mmol/L BUN 19 (9-20) mg/dL Creatinine 0.67 (0.66-1.25) mg/dL Est GFR (CKD-EPI)AfAm >90 (>60 ml/min/1.73 sqM) Est GFR (CKD-EPI)NonAf >90 (>60 ml/min/1.73 sqM) Glucose 447 H (74-99) mg/dL POC Glucose (mg/dL) (75-99) mg/dL POC Glu Weight Clerk ID Calcium 9.4 (8.4-10.2) mg/dL Total Bilirubin 1.6 H (0.2-1.3) mg/dL AST 43 (17-59) U/L ALT 23 (4-49) U/L Alkaline Phosphatase 101 (38-126) U/L Troponin I 0.021 (0.000-0.034) ng/mL Total Protein 7.9 (6.3-8.2) g/dL Albumin 4.5 (3.5-5.0) g/dL - NIH Stroke Scale 1a. Level of Consciousness: (0) alert 1b. LOC Questions: (0) answers correctly 1c. LOC Commands: (0) performs tasks correctly 2. Best Gaze: (0) normal 3. Visual: (0) no visual loss 4. Facial Palsy: (2) partial paralysis 5a. Motor Arm Left: (1) drift 5b. Motor Arm Right: (0) no drift 6a. Motor Leg Left: (1) drift 6b. Motor Leg Right: (0) no drift 7. Limb Ataxia: (0) absent 8. Sensory: (0) normal 9. Best Language: (1) mild/moderate aphasia 10. Dysarthria: (0) normal 11. Extinction/Inattention: (0) no abnormality - Thrombolytic Inclusion/Exclusion Thrombolytic Exclusion Criteria: Symptom Onset > 4.5 Hours - Medical Decision Making 61 male to be admitted with acute CVA left-sided weakness left-sided facial droop. Patient not TPA candidate secondary to onset of symptoms. Patient be admitted for further neurological evaluation and management - Radiology Data Radiology results: report reviewed (CT brain CTA head neck shows no significant acute disease to account for patient's symptoms), image reviewed - EKG Data -: EKG Interpreted by Me (EKG shows sinus rhythm 70 CO 137 QRS 120 QTc 426) Past Medical History Past Medical History: Cancer, Diabetes Mellitus, Hypertension, Musculoskeletal Disorder, Prostate Disorder Additional Past Medical History / Comment(s): hx. prostate cancer 2010, herniated discs History of Any Multi-Drug Resistant Organisms: None Reported Past Surgical History: Coronary Bypass/CABG, Heart Catheterization With Stent, Orthopedic Surgery, Prostate Surgery Additional Past Surgical History / Comment(s): R ankle, R elbow x3, B knee arthroscopy, L ear, sinus surg., triple bypass 17 yrs. ago, prostatectomy Past Anesthesia/Blood Transfusion Reactions: Postoperative Nausea & Vomiting (PONV) Date of Last Stent Placement:: 2019 Past Psychological History: No Psychological Hx Reported Smoking Status: Current every day smoker Past Alcohol Use History: None Reported Past Drug Use History: None Reported Course Vital Signs 08/10/21 08/10/21 08/10/21 02:36 02:58 03:13 Temperature 98 F 97.9 F Pulse Rate 67 70 62 Respiratory 18 18 18 Rate Blood Pressure 162/89 166/99 175/91 O2 Sat by Pulse 99 97 100 Oximetry 08/10/21 08/10/21 08/10/21 03:28 03:34 05:13 Temperature Pulse Rate 75 61 68 Respiratory 18 18 18 Rate Blood Pressure 181/97 181/97 O2 Sat by Pulse 99 98 98 Oximetry 08/10/21 08/10/21 08/10/21 05:14 06:08 06:09 Temperature Pulse Rate 77 61 63 Respiratory 18 18 18 Rate Blood Pressure 168/104 163/94 163/94 O2 Sat by Pulse 98 100 100 Oximetry - Reevaluation(s) Reevaluation #1: 08/10/21 06:59 Medical record is reviewed 08/10/21 06:59 Code stroke was paged on patient arrival to the emergency department Reevaluation #2: 08/10/21 06:59 Patient family informed of results and questions answered Reevaluation #3: 08/10/21 06:59 Patient has no improvement in symptoms - Consultations Consultation #1: Spoke with EM agrees to admit this patient Critical Care Time Critical Care Time: Yes Total Critical Care Time: 31 Disposition Clinical Impression: Cerebrovascular accident (CVA) Disposition: ADMITTED IP TO THIS HOSP Condition: Fair Is patient prescribed a controlled substance at d/c from ED?: No Referrals: Noe Heller MD [Primary Care Provider] - 1-2 days
--- NOTE | 2021-08-10 03:56 | CT ---
EXAMINATION TYPE: CT angio head neck DATE OF EXAM: 08/10/2021 COMPARISON: None HISTORY: stroke CT DLP: 608.6 mGycm Automated exposure control for dose reduction was used. CONTRAST: Performed with IV Contrast, patient injected with 65 mL of Isovue 370. Images obtained from the aortic arch to the vertex of the brain with IV contrast. There are Three-D p ostprocessed images. There is normal branching pattern of the great vessels on the aortic arch. There is 4.6 cm aneurysm of the ascending aorta. There is no dissection. There is arterial flow in robi th subclavian arteries. There is arterial flow in the common internal and external carotid arteries b ilaterally. There is mild plaque at the carotid artery bifurcations. There is approximately 30% steno sis of the origin right internal carotid artery. There is 10% stenosis origin left internal carotid a rtery. There is arterial flow in the proximal left vertebral artery. No evidence of any significant flow in the right vertebral artery. There is arterial flow in the distal left vertebral artery which is very small. There is arterial flow in the basilar artery. It is not clear if the basilar artery is filled to any degree from the vertebral arteries. There is large right posterior communicating artery that c ould be supplying most of the flow in the basilar artery and the posterior cerebral arteries. There i s arterial flow in the anterior middle and posterior cerebral arteries. No evidence of intracranial a rterial stenosis of the cerebral arteries. There is normal enhancement of the venous sinuses. There i s no mass effect. There is no evidence of intracranial aneurysm or neovascularity. IMPRESSION: Subtotal occlusions of both vertebral arteries. Posterior cerebral arteries appear to be filling thro ugh the right posterior communicating artery. No significant intracranial angiographic abnormality. Mild plaque formation at the origins of the internal carotid arteries without hemodynamic stenosis.
[2021-08-10 04:14] LABS: Potassium 4.8 mmol/L (3.5-5.1)
[2021-08-10 04:47] LABS: Partial Thromboplastin Time 22.2 sec (22.0-30.0)
[2021-08-10] MEDS ORDERED: LORazepam 2 MG/ML INJ IV STA (06:02)
[2021-08-10] MEDS ORDERED: SODIUM CHLORIDE 0.9% 500 ML 500 ML IV STA (06:53)
[2021-08-10] MEDS ORDERED: ASPIRIN 325 MG TAB PO STA (06:53)
[2021-08-10] MEDS ORDERED: ONDANSETRON 4 MG/2 ML VIAL IVP PRN (06:53)
[2021-08-10] MEDS ORDERED: NALOXONE 0.4 MG/ML 1 ML VIAL IV PRN (06:53)
[2021-08-10] MEDS: SODIUM CHLORIDE 0.9% 1,000 ML IV SCH (07:30)
[2021-08-10 09:09] LABS: Glucose,Whole Blood 298 mg/dL (75-99)
[2021-08-10] MEDS: INSULIN ASPART (NovoLOG) 100 UNIT/ML VIAL SQ SCH ×2 (09:11→17:56)
[2021-08-10] MEDS ORDERED: TICAGRELOR 90 MG TAB PO STA (12:02)
--- NOTE | 2021-08-10 12:09 | P.CNNES ---
History of Present Illness Consult date: 08/10/21 Requesting physician: Jordan Jennings Reason for Consult: CVA History of Present Illness: This is a 61-year-old gentleman with history of diabetes, hypertension, prostate cancer in 2010, coronary artery disease status stent and post CABG who presented emergency department on at 22,022 for left-sided weakness and numbness. Patient stated that the on he was having nausea vomiting and dizziness and he went to urgent care and he was told he has vertigo. And then yesterday he said possibly 7:00 he noticed the he is having left-sided numbness and weakness over the left side predominantly left lower extremity and worsening. He denies any history of stroke in the past or TIAs. He stated that he takes aspirin 81 mg and Plavix 75 mg daily because of his heart condition and he is compliant taking them is not compliant taking diabetic medication because of financial reason that. He does smoke tobacco and denies any illicit drug use. In the ED the stroke code was activated and the patient had NIH of 5 points for motor drift, 1 point for left leg, 2 for facial palsy, and 1 for language. No IV TPA since onset of symptoms is more than 4.5 hours. As well as no IV TB because of the risk outweighed the benefit. Some of the workup in the hospital consisted of: His blood pressure has been at in the range of 160s to 180s systolic and diastolic 80s to 90s. Sodium is 129, initial POC glucose is 456 otherwise rest of the Chem-7 is unremarkable. AST and 18 is within normal limits PT, PTT and INR is within normal limits CT of the head is reported as white matter hypodensity consistent with chronic small vessel ischemia or demyelinating disease without change compared to old exam. No acute abnormality. Old lacunar infarct in the right thalamus. I personally reviewed the CT of the head and the there is no acute or subacute ischemia and there is no intraparenchymal hemorrhage. I personally felt there is lacunar stroke over bilateral region I felt there is 1 over the left caudate and the left additional one in the left basal ganglia and there is 1 over the right thalamus was small. This seems likely due to chronic small vessel disease CT angiography of the head and neck is reported as subtotal occlusion of both vertebral arteries. Posterior cerebral arteries appear to be filling through the right posterior communicating artery. No significant intercranial and angiographic abnormality. Mild plaque formation at the origin of the internal carotid artery without hemodynamic stenosis at. Review of Systems Review of system: The 12 point system was reviewed and apparent positive and negative per HPI. Past Medical History Past Medical History: Cancer, Diabetes Mellitus, Hypertension, Musculoskeletal Disorder, Prostate Disorder Additional Past Medical History / Comment(s): hx. prostate cancer 2010, herniated discs History of Any Multi-Drug Resistant Organisms: None Reported Past Surgical History: Coronary Bypass/CABG, Heart Catheterization With Stent, Orthopedic Surgery, Prostate Surgery Additional Past Surgical History / Comment(s): R ankle, R elbow x3, B knee arthroscopy, L ear, sinus surg., triple bypass 17 yrs. ago, prostatectomy Past Anesthesia/Blood Transfusion Reactions: Postoperative Nausea & Vomiting (PONV) Date of Last Stent Placement:: 2019 Past Psychological History: No Psychological Hx Reported Smoking Status: Current every day smoker Past Alcohol Use History: None Reported Past Drug Use History: None Reported Medications and Allergies Home Medications Medication Instructions Recorded Confirmed Type Clopidogrel [Plavix] 75 mg PO DAILY 03/07/18 08/10/21 History Metoprolol Succinate (ER) [Toprol 25 mg PO DAILY 03/07/18 08/10/21 History Xl] captopriL [Capoten] 25 mg PO BID 03/07/18 08/10/21 History Cyclobenzaprine [Flexeril] 10 mg PO DAILY PRN 08/10/21 08/10/21 History Empagliflozin/Linagliptin 1 tab PO DAILY 08/10/21 08/10/21 History [Glyxambi 10 mg-5 mg Tablet] Pantoprazole [Protonix] 40 mg PO DAILY 08/10/21 08/10/21 History Allergies Allergy/AdvReac Type Severity Reaction Status Date / Time amoxicillin Allergy Unknown Rash/Hives Verified 08/10/21 12:10 Physical Examination - Vital Signs Vital Signs: Vital Signs Temp Pulse Resp BP Pulse Ox 08/10/21 06:09 63 18 163/94 100 08/10/21 06:08 61 18 163/94 100 08/10/21 05:14 77 18 168/104 98 08/10/21 05:13 68 18 98 08/10/21 03:34 61 18 181/97 98 08/10/21 03:28 75 18 181/97 99 08/10/21 03:13 62 18 175/91 100 08/10/21 02:58 97.9 F 70 18 166/99 97 08/10/21 02:36 98 F 67 18 162/89 99 Intake and Output 08/09/21 08/10/21 08/10/21 22:59 06:59 14:59 Other: Weight 74.843 kg GENERAL: The patient is lying in bed and is not in acute distress. CHEST: The heart rate is regular rate rhythm. No murmurs to auscultation. . LUNG: Clear to auscultation bilaterally no wheezing noted throughout. Not labored breathing. ABDOMEN/GI: Bowel sounds present in all 4 quadrants. No tenderness to palpation throughout. NEUROLOGICAL: Higher mental function: The patient is awake, alert, oriented to self, place and time. Patient is following commands. No aphasia and no neglect. Cranial nerves: The pupils are round, equal and reactive to light and a ccommodation. Visual anderson are full to confrontation throughout. Extraocular movement is intact no nystagmus is noted. Facial sensation is decrease to touch over entire left side. The facial strength is mild left facial weakness. Hearing is normal bilaterally to hand rub. Tongue is midline and moved [id number] without any difficulty. No dysarthria is noted. Shoulder shrug is normal bilaterally. Motor: Gait is deferred. The strength is 5 over 5 throughout. Normal tone and bulk. Cerebellum: Normal finger to nose bilaterally. Sensation: Sensation is normal to touch throughout. Reflexes (right/left): 2+ throughout except ankle are 1+. Plantars are mute bilaterally. Results - Laboratory Findings CBC and BMP: 08/10/21 03:10 08/10/21 03:10 Abnormal Lab Findings: Abnormal Labs 08/10/21 08/10/21 08/10/21 03:09 03:10 03:10 RBC 6.12 H Hgb 18.3 H Hct 53.9 H Plt Count 137 L Sodium 129 L Chloride 96 L Glucose 447 H POC Glucose (mg/dL) 456 H Total Bilirubin 1.6 H 08/10/21 09:07 RBC Hgb Hct Plt Count Sodium Chloride Glucose POC Glucose (mg/dL) 298 H Total Bilirubin Assessment and Plan Assessment: This is a 61 y/o gentleman who initially presented with nausea vomiting and dizziness on 08/07 and noticed and weakness over the left side on 08/09 Acute CVA (left facial droop and numbness. Stated had weakness on left side but on my examination he strength was normal). Uncontrolled hypertension. History of lacunar stroke over bilateral hemisphere likely due to small vessel disease (risk factor of DM, Hypertension, tobacco use and CAD). History of coronary artery disease status post stent Status post CABG History of hypertension Diabetes mellitus and it's uncontrolled he stated that he is noncompliance because of financial reason. Tobacco use // Plan: In the ED the patient's was given aspirin 325 once then was started on aspirin 325 daily (patient is on ASA 81mg daily and Plavix 75mg daily). In addition I will not start the patient on his home dose of Plavix but rather was started him on Brilinta since Plavix failed. I loaded the patient with Brilinta 180mg once then 90mg 1 tab bid. Patient was started on Lipitor 80 mg daily at bedtime and that's it be continued for secondary stroke prophylaxis Ordered MRI of the brain, carotid duplex, 2-D echo Lipid panels ordered and is pending I ordered hemoglobin A1c and TSH level PT, OT and HORSERADISH MAKER are consulted Continue neuro checks On cardiac monitoring Patient was counseled on tobacco cessation. We'll defer the rest of the medical management to the primary team For DVT prophylaxis I started the patient on subcu heparin 5000 units every 12 hours. Thank you for the consultation. Dr. Arellano will start neurology service tomorrow AM. Papo Grossman M.D. Neuro-hospitalist Time with Patient: Greater than 30
--- NOTE | 2021-08-10 13:29 | US ---
EXAMINATION TYPE: US carotid duplex BILAT DATE OF EXAM: 08/10/2021 COMPARISON: CTA neck from yesterday CLINICAL HISTORY: stroke. stroke EXAM MEASUREMENTS: RIGHT: Peak Systolic Velocity (PSV) cm/sec ----- Right CCA: 61.0 ----- Right ICA: 100.0 ----- Right ECA: 122.9 ICA/CCA ratio: 1.6 RIGHT: End Diastole cm/sec ----- Right CCA: 13.9 ----- Right ICA: 22.5 ----- Right ECA: 0.0 LEFT: Peak Systolic Velocity (PSV) cm/sec ----- Left CCA: 61.9 ----- Left ICA: 86.7 ----- Left ECA: 159.5 ICA/CCA ratio: 1.4 LEFT: End Diastole cm/sec ----- Left CCA: 14.7 ----- Left ICA: 23.0 ----- Left ECA: 17.5 VERTEBRALS (direction of flow): Right Vertebral: unable to visualize Left Vertebral: antegrade, diminished flow Rhythm: Normal carter scale images show moderate peripheral plaque at bilateral carotid bulb level greater on the righ t but plasty measurements and ratios the visualized portion of both internal carotid arteries remains within normal limits. Nonvisualized flow right vertebral artery. Poor flow in the left vertebral art hollie. IMPRESSION: No significant stenosis in either internal carotid artery correlates with recent CTA nec k study. Poor bilateral vertebral artery flow is redemonstrated. Criteria for Assigning % of Stenosis / Diameter reduction (Estimation based on the indirect measurements of the internal carotid artery velocities (ICA PSV). 1. Normal (no stenosis)=ICA PSV < 125 cm/s: ratio < 2.0: ICA EDV<40 cm/s. 2. Less than 50% stenosis=ICA PSV < 125 cm/s: ratio < 2.0: ICA EDV<40 cm/s. 3. 50 to 69% stenosis=ICA PSV of 125 to 230 cm/s: ration 2.0 ? 4.0: ICA EDV 40-100 cm/s. 4. Greater than 70% stenosis to near occlusion= ICA PSV > 230 cm/s: ratio > 4.0: ICA EDV > 100 cm/s. 5. Near occlusion= ICA PSV velocities may be low or undetectable: variable ratio and ICA EDV. 6. Total occlusion=unable to detect flow.
[2021-08-10 14:04] LABS: T4, Free (Free Thyroxine) 1.14 ng/dL (0.78-2.19)
[2021-08-10 16:55] LABS: Glucose,Whole Blood 394 mg/dL (75-99)
[2021-08-10] MEDS ORDERED: LORazepam 2 MG/ML INJ IV PRN ×2 (18:13)
--- NOTE | 2021-08-10 18:41 | P.HPIM ---
History of Present Illness H&P Date: 08/10/21 Chief Complaint: Possible acute CVA 61-year-old gentleman with history of diabetes, hypertension, prostate cancer in 2010, coronary artery disease status stent and post CABG who presented emergency department on at 22,022 for left-sided weakness and numbness. Patient stated that the on he was having nausea vomiting and dizziness and he went to urgent care and he was told he has vertigo. And then yesterday he said possibly 7:00 he noticed the he is having left-sided numbness and weakness over the left side predominantly left lower extremity and worsening. He denies any history of stroke in the past or TIAs. He stated that he takes aspirin 81 mg and Plavix 75 mg daily because of his heart condition and he is compliant taking them is not compliant taking diabetic medication because of financial reason that. Blood work revealed Sodium is 129, initial POC glucose is 456 otherwise rest of the Chem-7 is unremarkable. AST and 18 is within normal limits CT of the head reveals hypodensity consistent with chronic small vessel ischemia or demyelinating disease without change compared to old exam. No acute abnormality. Old lacunar infarct in the right thalamus. CT angiography of the head and neck is reported as subtotal occlusion of both vertebral arteries. Posterior cerebral arteries appear to be filling through the right posterior communicating artery. No significant intercranial and angiographic abnormality. Mild plaque formation at the origin of the internal carotid artery without hemodynamic stenosis at. Review of Systems REVIEW OF SYSTEMS: CONSTITUTIONAL: No fever, no malaise, no fatigue. HEENT: No recent visual problems or hearing problems. Denied any sore throat. CARDIOVASCULAR: No chest pain, orthopnea, PND, no palpitations, no syncope. PULMONARY: No shortness of breath, no cough, no hemoptysis. GASTROINTESTINAL: No diarrhea, no nausea, no vomiting, no abdominal pain. NEUROLOGICAL: No headaches, no weakness, no numbness. HEMATOLOGICAL: Denies any bleeding or petechiae. GENITOURINARY: Denies any burning micturition, frequency, or urgency. MUSCULOSKELETAL/RHEUMATOLOGICAL: Denies any joint pain, swelling, or any muscle pain. ENDOCRINE: Denies any polyuria or polydipsia. The rest of the 14-point review of systems is negative. Past Medical History Past Medical History: Cancer, Diabetes Mellitus, Hypertension, Musculoskeletal Disorder, Prostate Disorder Additional Past Medical History / Comment(s): hx. prostate cancer 2010, herniated discs History of Any Multi-Drug Resistant Organisms: None Reported Past Surgical History: Coronary Bypass/CABG, Heart Catheterization With Stent, Orthopedic Surgery, Prostate Surgery Additional Past Surgical History / Comment(s): R ankle, R elbow x3, B knee arthroscopy, L ear, sinus surg., triple bypass 17 yrs. ago, prostatectomy Past Anesthesia/Blood Transfusion Reactions: Postoperative Nausea & Vomiting (PONV) Date of Last Stent Placement:: 2019 Past Psychological History: No Psychological Hx Reported Smoking Status: Current every day smoker Past Alcohol Use History: None Reported Past Drug Use History: None Reported Medications and Allergies Home Medications Medication Instructions Recorded Confirmed Type Clopidogrel [Plavix] 75 mg PO DAILY 03/07/18 08/10/21 History Metoprolol Succinate (ER) [Toprol 25 mg PO DAILY 03/07/18 08/10/21 History Xl] captopriL [Capoten] 25 mg PO BID 03/07/18 08/10/21 History Cyclobenzaprine [Flexeril] 10 mg PO DAILY PRN 08/10/21 08/10/21 History Empagliflozin/Linagliptin 1 tab PO DAILY 08/10/21 08/10/21 History [Glyxambi 10 mg-5 mg Tablet] Pantoprazole [Protonix] 40 mg PO DAILY 08/10/21 08/10/21 History Allergies Allergy/AdvReac Type Severity Reaction Status Date / Time amoxicillin Allergy Unknown Rash/Hives Verified 08/10/21 12:10 Physical Exam Vitals: Vital Signs Temp Pulse Resp BP Pulse Ox 08/10/21 06:09 63 18 163/94 100 08/10/21 06:08 61 18 163/94 100 08/10/21 05:14 77 18 168/104 98 08/10/21 05:13 68 18 98 08/10/21 03:34 61 18 181/97 98 08/10/21 03:28 75 18 181/97 99 08/10/21 03:13 62 18 175/91 100 08/10/21 02:58 97.9 F 70 18 166/99 97 08/10/21 02:36 98 F 67 18 162/89 99 Intake and Output 08/09/21 08/10/21 08/10/21 22:59 06:59 14:59 Other: Weight 74.843 kg General appearance: alert, in no apparent distress Head exam: Present: atraumatic, normocephalic, normal inspection Eye exam: Present: normal appearance, PERRL, EOMI. Absent: scleral icterus, conjunctival injection, periorbital swelling ENT exam: Present: normal exam, mucous membranes moist Neck exam: Present: normal inspection. Absent: tenderness, meningismus, lymphadenopathy Respiratory exam: Present: normal lung sounds bilaterally. Absent: respiratory distress, wheezes, rales, rhonchi, stridor Cardiovascular Exam: Present: regular rate, normal rhythm, normal heart sounds. Absent: systolic murmur, diastolic murmur, rubs, gallop, clicks GI/Abdominal exam: Present: soft, normal bowel sounds. Absent: distended, tenderness, guarding, rebound, rigid Extremities exam: Present: normal inspection, full ROM, normal capillary refill. Absent: tenderness, pedal edema, joint swelling, calf tenderness Back exam: Present: normal inspection Neurological exam: Present: alert, oriented X3, CN II-XII intact Psychiatric exam: Present: normal affect, normal mood Skin exam: Present: warm, dry, intact, normal color. Absent: rash Results CBC & Chem 7: 08/10/21 03:10 08/10/21 03:10 Labs: Abnormal Lab Results - Last 24 Hours (Table) 08/10/21 08/10/21 08/10/21 Range/Units 03:09 03:10 03:10 RBC 6.12 H (4.30-5.90) m/uL Hgb 18.3 H (13.0-17.5) gm/dL Hct 53.9 H (39.0-53.0) % Plt Count 137 L (150-450) k/uL Sodium 129 L (137-145) mmol/L Chloride 96 L (98-107) mmol/L Glucose 447 H (74-99) mg/dL POC Glucose (mg/dL) 456 H (75-99) mg/dL Total Bilirubin 1.6 H (0.2-1.3) mg/dL 08/10/21 Range/Units 09:07 RBC (4.30-5.90) m/uL Hgb (13.0-17.5) gm/dL Hct (39.0-53.0) % Plt Count (150-450) k/uL Sodium (137-145) mmol/L Chloride (98-107) mmol/L Glucose (74-99) mg/dL POC Glucose (mg/dL) 298 H (75-99) mg/dL Total Bilirubin (0.2-1.3) mg/dL Assessment and Plan Assessment: 1. Acute CVA; with left facial droop and numbness --patient's was given aspirin 325 once then was started on aspirin 325 daily; urology recommending to hold off on home dose of Plavix and patient is placed on Brilanta at 180 mg 1 followed by 90 mg twice a day - Patient has been placed on Lipitor 80 mg by mouth daily at bedtime - MRI of the brain, bilateral carotid Doppler and 2-D echo is ordered and pending - We will order lipid panel, TSH, A1c - PT/OT/LANG INTERPRETER consulted 2. Uncontrolled hypertension; patient takes captopril 25 mg twice a day along with metoprolol 25 mg daily; we will hold on antihypertensive therapy for permissive hypertension; treat with IV hydralazine if systolic blood pressures greater than 220 and diastolic blood pressures over 110; recommend resuming antihypertensive therapy gradually from next 24-48 hours 3. Diabetes mellitus; uncontrolled; we will monitor Accu-Cheks every before meals and at bedtime with insulin sliding scale; adjust medications once patient is stable for discharge 4. CAD status post CABG; patient takes Plavix 75 mg daily along with metoprolol 25 mg daily; not on aspirin or statin therapy 5. Gastroesophageal reflux disease; Protonix 40 mg daily DVT prophylaxis; SCDs CODE STATUS; full code
[2021-08-10 20:13] LABS: Glucose,Whole Blood 404 mg/dL (75-99)
[2021-08-10 20:13] LABS: Glucose,Whole Blood 504 mg/dL (75-99)
[2021-08-10] MEDS ORDERED: INSULIN REGULAR 100 UNIT in SODIUM CHLORIDE 0.9% 100 ML IV SCH (21:00)
[2021-08-10] MEDS ORDERED: CYCLOBENZAPRINE 10 MG TAB PO PRN (21:00)
[2021-08-10] MEDS: ATORVASTATIN 80 MG TAB PO SCH (21:44)
[2021-08-10] MEDS: HEPARIN SODIUM,PORCINE/PF 5,000 UNIT/0.5 ML SYRINGE SQ SCH (21:45)
[2021-08-10] MEDS: TICAGRELOR 90 MG TAB PO SCH (21:45)
[2021-08-10] MEDS: ACETAMINOPHEN TAB 325 MG TAB PO PRN (21:46)
[2021-08-10 22:36] LABS: Glucose,Whole Blood 576 mg/dL (75-99)
[2021-08-10 23:27] LABS: Glucose,Whole Blood 442 mg/dL (75-99)
[2021-08-10 23:56] LABS: Glucose,Whole Blood 250 mg/dL (75-99)
[2021-08-11 02:03] LABS: Glucose,Whole Blood 110 mg/dL (75-99)
[2021-08-11 03:10] LABS: Glucose,Whole Blood 181 mg/dL (75-99)
[2021-08-11] MEDS: SODIUM CHLORIDE 0.9% 1,000 ML IV SCH ×4 (03:59→23:56)
[2021-08-11 05:05] LABS: Glucose,Whole Blood 126 mg/dL (75-99)
[2021-08-11 06:04] LABS: Glucose,Whole Blood 181 mg/dL (75-99)
[2021-08-11] MEDS ORDERED: INSULIN ASPART (NovoLOG) 100 UNIT/ML VIAL SQ SCH ×2 (07:30→17:30)
[2021-08-11 07:50] LABS: Basophils # (A) 0.1 k/uL (0-0.2); Basophils % (A) 1 %; Eosinophils # (A) 0.2 k/uL (0-0.7); Eosinophils % (A) 2 %; HCT 52.2 % (39.0-53.0); HGB 17.8 gm/dL (13.0-17.5); Lymphocytes % (A) 23 %; MCH 29.8 pg (25.0-35.0); MCHC 34.1 g/dL (31.0-37.0); MCV 87.3 fL (80.0-100.0); Monocytes # (A) 0.7 k/uL (0-1.0); Monocytes % (A) 8 %; Neutrophils # (A) 5.3 k/uL (1.3-7.7); Neutrophils % (A) 62 %; Platelet Count 228 k/uL (150-450); RBC 5.98 m/uL (4.30-5.90); RDW 13.2 % (11.5-15.5); WBC 8.5 k/uL (3.8-10.6)
[2021-08-11 07:57] LABS: Glucose,Whole Blood 471 mg/dL (75-99)
[2021-08-11 08:05] LABS: Glucose,Whole Blood 183 mg/dL (75-99)
[2021-08-11 08:12] LABS: ALT 23 U/L (4-49); AST 30 U/L (17-59); African American GFR (CKD) >90 (>60 ml/min/1.73 sqM); Albumin 3.8 g/dL (3.5-5.0); Alkaline Phosphatase 83 U/L (38-126); Anion Gap 8 mmol/L; Blood Urea Nitrogen 19 mg/dL (9-20); Carbon Dioxide 25 mmol/L (22-30); Chloride 100 mmol/L (98-107); Glucose 137 mg/dL (74-99); Magnesium 1.9 mg/dL (1.6-2.3); Non-African American GFR(CKD) >90 (>60 ml/min/1.73 sqM); Phosphorus 3.9 mg/dL (2.5-4.5); Potassium 3.9 mmol/L (3.5-5.1); Sodium 133 mmol/L (137-145); Total Bilirubin 1.1 mg/dL (0.2-1.3)
[2021-08-11] MEDS ORDERED: [UNRECOGNIZED DRUG - OTHER] PO SCH (09:00)
[2021-08-11] MEDS ORDERED: EMPAGLIFLOZIN PO SCH (09:00)
[2021-08-11] MEDS ORDERED: LINAGLIPTIN PO SCH (09:00)
[2021-08-11 10:01] LABS: Glucose,Whole Blood 363 mg/dL (75-99)
[2021-08-11] MEDS: HEPARIN SODIUM,PORCINE/PF 5,000 UNIT/0.5 ML SYRINGE SQ SCH ×2 (10:04→21:14)
[2021-08-11] MEDS: ASPIRIN 81 MG PO SCH (10:04)
[2021-08-11] MEDS: PANTOPRAZOLE 40 MG TABLET PO SCH (10:04)
[2021-08-11] MEDS: METOPROLOL SUCCINATE (ER) 25 MG TAB.ER.24H PO SCH (10:05)
[2021-08-11] MEDS: TICAGRELOR 90 MG TAB PO SCH ×2 (10:05→21:14)
[2021-08-11 11:07] LABS: Chol/HDL Ratio 4.36 Ratio; LDL Cholesterol,Calculated 127.6 mg/dL (0.0-131.0)
[2021-08-11 11:56] LABS: Glucose,Whole Blood 336 mg/dL (75-99)
[2021-08-11 14:00] VITALS: BMI 25.8
[2021-08-11 14:02] LABS: Glucose,Whole Blood 313 mg/dL (75-99)
--- NOTE | 2021-08-11 15:27 | P.PN ---
Subjective Progress Note Date: 08/11/21 61-year-old gentleman with history of diabetes, hypertension, prostate cancer in 2010, coronary artery disease status stent and post CABG who presented emergency department on at 22,022 for left-sided weakness and numbness. Patient stated that the on he was having nausea vomiting and dizziness and he went to urgent care and he was told he has vertigo. And then yesterday he said possibly 7:00 he noticed the he is having left-sided numbness and weakness over the left side predominantly left lower extremity and worsening. He denies any history of stroke in the past or TIAs. He stated that he takes aspirin 81 mg and Plavix 75 mg daily because of his heart condition and he is compliant taking them is not compliant taking diabetic medication because of financial reason that. Blood work revealed Sodium is 129, initial POC glucose is 456 otherwise rest of the Chem-7 is unremarkable. AST and 18 is within normal limits CT of the head reveals hypodensity consistent with chronic small vessel ischemia or demyelinating disease without change compared to old exam. No acute abnormality. Old lacunar infarct in the right thalamus. CT angiography of the head and neck is reported as subtotal occlusion of both vertebral arteries. Posterior cerebral arteries appear to be filling through the right posterior communicating artery. No significant intercranial and angiographic abnormality. Mild plaque formation at the origin of the internal carotid artery without hemodynamic stenosis at. 08/11/2021 Patient today resting bed. He states that he was up all night long having 73 days. Still complaining of some left-sided facial numbness and droop, denies any focal weakness in the left side today. A1c 11.6. Patient blood sugar 440 yesterday evening was started on insulin drip, blood sugars continue to be into the 300s today. Patient would like to be off the insulin drip and we can try and transition him. Sodium is improved to 133. TSH 0.200 however free T4 is 1.14. Patient echo pending and will undergo MRI later on today. Neurology following the patient closely. Review of Systems Constitutional: Denied any fatigue denied any fever. Cardio vascular: denied any chest pain, palpitations Gastrointestinal: denied any nausea, vomiting, diarrhea Pulmonary: Denied any shortness of breath cough Neurologic denied any new focal deficits All inpatient medications were reviewed and appropriate changes in these medications as dictated in the interval history and assessment and plan. PHYSICAL EXAMINATION: GENERAL: The patient is alert and oriented x3, not in any acute distress. Well developed, well nourished. HEENT: Pupils are round and equally reacting to light. EOMI. No scleral icterus. No conjunctival pallor. Normocephalic, atraumatic. No pharyngeal erythema. No thyromegaly. CARDIOVASCULAR: S1 and S2 present. No murmurs, rubs, or gallops. PULMONARY: Chest is clear to auscultation, no wheezing or crackles. ABDOMEN: Soft, nontender, nondistended, normoactive bowel sounds. No palpable organomegaly. MUSCULOSKELETAL: No joint swelling or deformity. EXTREMITIES: No cyanosis, clubbing, or pedal edema. NEUROLOGICAL: Gross neurological examination did not reveal any focal deficits. SKIN: No rashes. Assessment and plan Assessment Acute stroke with left facial droop and numbness patient is now on brilenta, Lipitor Uncontrolled hypertension, on captopril and metoprolol which are home medications BP currently in the 170s systolic Diabetes mellitus type 2 uncontrolled with A1C of 11.6, will transition off the insulin gtt today CAD status post CABG, patient was on plavix at home which has been switched to brilenta, and was started on aspirin and statin this admission Gastroesophageal reflux disease, on protonix DVT prophylaxis GI prophylaxis Do Not Resuscitate Plan Continue current cardiac medications Monitor blood pressure Echo pending MRI pending Transition off insulin gtt Continue all other supportive care Repeat labs in a.m. Home with homecare vs IP rehab on discharge The impression and plan of care has been dictated by Tahmina Alcala, Nurse Practitioner as directed. Dr. China MD I have performed a history and physical examination and medical decision making of this patient, discussed the same with the dictator, and agree with the dictators assessment and plan as written, documented as a scribe. Based on total visit time, I have performed more than 50% of this visit. Objective - Vital Signs Vital signs: Vital Signs Temp 98.1 F 08/11/21 08:00 Pulse 74 08/11/21 08:00 Resp 18 08/11/21 08:00 BP 170/82 08/11/21 08:00 Pulse Ox 99 08/11/21 08:00 Intake & Output 08/10/21 08/11/21 08/11/21 18:59 06:59 18:59 Intake Total 180 592.716 135.55 Output Total 550 450 625 Balance -370 142.716 -489.45 Weight 74.843 kg Intake: Intake, IV Titration 52.716 17.55 Amount Insulin Regular 100 unit 52.716 17.55 In Sodium Chloride 0.9% 100 ml @ Titrate IV .Q0M [facility] Rx#:[id number] Oral 180 540 118 Output: Urine 550 450 625 - Labs CBC & Chem 7: 08/11/21 06:00 08/11/21 06:00 Labs: Abnormal Lab Results - Last 24 Hours (Table) 08/10/21 08/10/21 08/10/21 Range/Units 03:10 03:10 16:53 RBC (4.30-5.90) m/uL Hgb (13.0-17.5) gm/dL Sodium (137-145) mmol/L Glucose (74-99) mg/dL POC Glucose (mg/dL) 394 H (75-99) mg/dL Hemoglobin A1c 11.6 H (0.0-6.0) % TSH 0.200 L (0.465-4.680) mIU/L 08/10/21 08/10/21 08/10/21 Range/Units 20:09 20:11 22:29 RBC (4.30-5.90) m/uL Hgb (13.0-17.5) gm/dL Sodium (137-145) mmol/L Glucose (74-99) mg/dL POC Glucose (mg/dL) 504 H 404 H 576 H (75-99) mg/dL Hemoglobin A1c (0.0-6.0) % TSH (0.465-4.680) mIU/L 08/10/21 08/10/21 08/11/21 Range/Units 23:22 23:54 02:03 RBC (4.30-5.90) m/uL Hgb (13.0-17.5) gm/dL Sodium (137-145) mmol/L Glucose (74-99) mg/dL POC Glucose (mg/dL) 442 H 250 H 110 H (75-99) mg/dL Hemoglobin A1c (0.0-6.0) % TSH (0.465-4.680) mIU/L 08/11/21 08/11/21 08/11/21 Range/Units 03:08 05:03 06:00 RBC 5.98 H (4.30-5.90) m/uL Hgb 17.8 H (13.0-17.5) gm/dL Sodium (137-145) mmol/L Glucose (74-99) mg/dL POC Glucose (mg/dL) 181 H 126 H (75-99) mg/dL Hemoglobin A1c (0.0-6.0) % TSH (0.465-4.680) mIU/L 08/11/21 08/11/21 08/11/21 Range/Units 06:00 06:02 07:56 RBC (4.30-5.90) m/uL Hgb (13.0-17.5) gm/dL Sodium 133 L (137-145) mmol/L Glucose 137 H (74-99) mg/dL POC Glucose (mg/dL) 181 H 471 H (75-99) mg/dL Hemoglobin A1c (0.0-6.0) % TSH (0.465-4.680) mIU/L 08/11/21 08/11/21 08/11/21 Range/Units 08:03 09:59 11:54 RBC (4.30-5.90) m/uL Hgb (13.0-17.5) gm/dL Sodium (137-145) mmol/L Glucose (74-99) mg/dL POC Glucose (mg/dL) 183 H 363 H 336 H (75-99) mg/dL Hemoglobin A1c (0.0-6.0) % TSH (0.465-4.680) mIU/L Assessment and Plan Time with Patient: Less than 30
[2021-08-11 16:00] LABS: Glucose,Whole Blood 271 mg/dL (75-99)
[2021-08-11] MEDS: LINAGLIPTIN 5 MG TABLET PO SCH (17:21)
[2021-08-11] MEDS: INSULIN ASPART (NovoLOG) 100 UNIT/ML VIAL SQ SCH ×2 (17:21→21:14)
[2021-08-11 18:02] LABS: Glucose,Whole Blood 249 mg/dL (75-99)
[2021-08-11 20:13] LABS: Glucose,Whole Blood 285 mg/dL (75-99)
[2021-08-11] MEDS: ATORVASTATIN 80 MG TAB PO SCH (21:13)
[2021-08-11] MEDS: INSULIN DETEMIR (LEVEMIR) 100 UNIT/ML SYR SQ SCH (21:14)
[2021-08-11] MEDS: HYDROcodone/APAP 5-325MG 1 EACH TAB PO PRN (23:13)
[2021-08-12 07:04] LABS: Glucose,Whole Blood 297 mg/dL (75-99)
[2021-08-12] MEDS: INSULIN ASPART (NovoLOG) 100 UNIT/ML VIAL SQ SCH ×7 (07:09→20:45)
[2021-08-12 08:04] LABS: African American GFR (CKD) >90 (>60 ml/min/1.73 sqM); Anion Gap 7 mmol/L; Blood Urea Nitrogen 16 mg/dL (9-20); Calcium 9.1 mg/dL (8.4-10.2); Carbon Dioxide 29 mmol/L (22-30); Chloride 96 mmol/L (98-107); Glucose 276 mg/dL (74-99); Non-African American GFR(CKD) >90 (>60 ml/min/1.73 sqM); Potassium 4.6 mmol/L (3.5-5.1); Sodium 132 mmol/L (137-145)
[2021-08-12] MEDS: HEPARIN SODIUM,PORCINE/PF 5,000 UNIT/0.5 ML SYRINGE SQ SCH (09:22)
[2021-08-12] MEDS: ASPIRIN 81 MG PO SCH (09:22)
[2021-08-12] MEDS: LINAGLIPTIN 5 MG TABLET PO SCH (09:23)
[2021-08-12] MEDS: PANTOPRAZOLE 40 MG TABLET PO SCH (09:23)
[2021-08-12] MEDS: METOPROLOL SUCCINATE (ER) 25 MG TAB.ER.24H PO SCH (09:23)
[2021-08-12] MEDS: TICAGRELOR 90 MG TAB PO SCH ×2 (09:24→20:45)
--- NOTE | 2021-08-12 09:58 | P.PN ---
Subjective Progress Note Date: 08/11/21 Patient initially seen by Dr. Papo Grossman yesterday. Please refer to his note for details. 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 Patient tells me that his symptoms started on , 08/07/2021, 3 days prior to arrival when he started feeling dizzy and threw up. On Wednesday he went to urgent care and was felt he may have some vestibular dysfunction possibly viral. Since then he has been getting worse. Patient developed numbness of left side of the face, his balance was off, couldn't walk, had no control of the left side. Denies any weakness however. No numbness or tingling in the upper or lower extremities. Patient was not a candidate for TPA as he came outside the window for TPA. Patient's significant other was also present, who also provided with the above mentioned history. Patient has history of diabetes for 20 years, hypertension. Patient has smoked 1 pack per day for 45 years, out of which he did quit for 10 years, therefore in general 35 pack years of smoking tobacco. Patient had been on dual antiplatelet medications including aspirin 81 mg and Plavix 75 mg. Objective - Vital Signs Vital signs: Vital Signs Temp 98.1 F 08/11/21 08:00 Pulse 63 08/11/21 12:00 Resp 18 08/11/21 12:00 BP 170/81 08/11/21 12:00 Pulse Ox 99 08/11/21 12:00 Intake & Output 08/10/21 08/11/21 08/11/21 18:59 06:59 18:59 Intake Total 180 592.716 253.55 Output Total 849 351 8602 Balance -370 142.716 -921.45 Weight 74.843 kg 74.843 kg Intake: Intake, IV Titration 52.716 17.55 Amount Insulin Regular 100 unit 52.716 17.55 In Sodium Chloride 0.9% 100 ml @ Titrate IV .Q0M [facility] Rx#:[id number] Oral 180 540 236 Output: Urine 282 249 7936 - Exam Patient is a middle aged male, in no acute distress. Patient is alert awake oriented to time place and person. Speech is mildly dysarthric and language functions are normal. Patient can name and repeat very well. Attention, concentration and fund of knowledge is adequate. On cranial examination, pupils are equal, round and reacting to light, visual anderson are full on confrontation, extraocular muscles are intact with nonsustained, coarse nystagmus on the left gaze. Face is symmetric, tongue p rotrudes to the midline. Palatal elevation and sensation normal, hearing and shoulder shrug normal, facial sensation normal. Shoulder shrug normal. On muscle strength testing, there is no pronator drift and the strength is normal in arms and legs distally and proximally. Deep tendon reflexes are (right/left) biceps 2+/1+, brachioradialis 2+/1, knee 1+/1+, ankles 1/1 and plantar is up on the right, down on the left. Sensory to touch is equal in the upper and lower activities with no neglect on double simultaneous stimulation. Cerebellar function reveals severe ataxia for [id number] and kcpt-[id number] testing on the left side, and mild ataxia on the right side. Gait not checked. On general examination, there is no carotid bruit or murmur, S1-S2 audible. Abdomen is soft nontender. Chest is clear. Peripheral pulses are present. No edema. - Labs CBC & Chem 7: 08/11/21 06:00 08/12/21 05:41 Labs: Abnormal Lab Results - Last 24 Hours (Table) 08/10/21 08/10/21 08/10/21 Range/Units 03:10 16:53 20:09 RBC (4.30-5.90) m/uL Hgb (13.0-17.5) gm/dL Sodium (137-145) mmol/L Glucose (74-99) mg/dL POC Glucose (mg/dL) 394 H 504 H (75-99) mg/dL Hemoglobin A1c 11.6 H (0.0-6.0) % 08/10/21 08/10/21 08/10/21 Range/Units 20:11 22:29 23:22 RBC (4.30-5.90) m/uL Hgb (13.0-17.5) gm/dL Sodium (137-145) mmol/L Glucose (74-99) mg/dL POC Glucose (mg/dL) 404 H 576 H 442 H (75-99) mg/dL Hemoglobin A1c (0.0-6.0) % 08/10/21 08/11/21 08/11/21 Range/Units 23:54 02:03 03:08 RBC (4.30-5.90) m/uL Hgb (13.0-17.5) gm/dL Sodium (137-145) mmol/L Glucose (74-99) mg/dL POC Glucose (mg/dL) 250 H 110 H 181 H (75-99) mg/dL Hemoglobin A1c (0.0-6.0) % 08/11/21 08/11/21 08/11/21 Range/Units 05:03 06:00 06:00 RBC 5.98 H (4.30-5.90) m/uL Hgb 17.8 H (13.0-17.5) gm/dL Sodium 133 L (137-145) mmol/L Glucose 137 H (74-99) mg/dL POC Glucose (mg/dL) 126 H (75-99) mg/dL Hemoglobin A1c (0.0-6.0) % 08/11/21 08/11/21 08/11/21 Range/Units 06:02 07:56 08:03 RBC (4.30-5.90) m/uL Hgb (13.0-17.5) gm/dL Sodium (137-145) mmol/L Glucose (74-99) mg/dL POC Glucose (mg/dL) 181 H 471 H 183 H (75-99) mg/dL Hemoglobin A1c (0.0-6.0) % 08/11/21 08/11/21 08/11/21 Range/Units 09:59 11:54 13:59 RBC (4.30-5.90) m/uL Hgb (13.0-17.5) gm/dL Sodium (137-145) mmol/L Glucose (74-99) mg/dL POC Glucose (mg/dL) 363 H 336 H 313 H (75-99) mg/dL Hemoglobin A1c (0.0-6.0) % 08/11/21 Range/Units 15:58 RBC (4.30-5.90) m/uL Hgb (13.0-17.5) gm/dL Sodium (137-145) mmol/L Glucose (74-99) mg/dL POC Glucose (mg/dL) 271 H (75-99) mg/dL Hemoglobin A1c (0.0-6.0) % Assessment and Plan Assessment: This is a 61 y/o gentleman who initially presented with nausea vomiting and dizziness on 08/07 and noticed incoordination on the left side on 08/09 Acute to subacute left cerebellar CVA. Rule out brainstem ischemia due to (left facial numbness). Uncontrolled hypertension. History of lacunar stroke over bilateral hemisphere likely due to small vessel disease (risk factor of DM, Hypertension, tobacco use and CAD). History of coronary artery disease status post stent Status post CABG History of hypertension Diabetes mellitus, uncontrolled. Patient stated that he is noncompliance b ecause of financial reason. Tobacco use Plan: Continue aspirin 81 mg daily and Brilinta 90 mg twice a day. Patient has failed aspirin and Plavix regimen prior to arrival. CT of the head is reported as white matter hypodensity consistent with chronic small vessel ischemia or demyelinating disease without change compared to old exam. No acute abnormality. Old lacunar infarct right thalamus. On my review, there is evidence of subacute left cerebellar ischemic strokes, and perhaps also a smaller area of cerebellar infarct right side. Old right thalamic lacunar in farct. Significant small vessel disease bilaterally. CT angiography of the head and neck is reported as subtotal occlusion of both vertebral arteries. Posterior cerebral arteries appear to be filling through the right posterior communicating artery. No significant intercranial and angiographic abnormality. Mild plaque formation at the origin of the internal carotid artery without hemodynamic stenosis at. Await MRI of the brain, delay due to presence of penile implant, needs clearance for MRI. We will also check MRA of the head without contrast and MRA of the neck with and without contrast to evaluate for vertebrobasilar status/stenosis/occlusion. 2-D echo completed, report pending. Carotid Doppler shows no significant stenosis in the bilateral ICA. Poor flow in both vertebral arteries. Lipid panel cholesterol 197, LDL 127, HDL 45, triglycerides 121. Continue Lipitor 80 mg. Hemoglobin A1c 11.6. Optimize control of diabetes to target A1c <7.0. TSH is low 0.20 (0.46-4.6). Free T4 is normal 1.14. We will defer to IM to address abnormal thyroid functions. PT, OT and [employer] are consulted Continue neuro checks On cardiac monitoring. Telemetry monitoring showing sinus bradycardia in the 57. Patient was counseled on tobacco cessation. We'll defer the rest of the medical management to the primary team For DVT prophylaxis continue subcu heparin 5000 units every 12 hours. Time with Patient: Greater than 30 (Complexity: high.)
[2021-08-12] MEDS ORDERED: LORazepam 2 MG/ML INJ IV STA (10:08)
--- NOTE | 2021-08-12 11:35 | MR ---
EXAMINATION TYPE: MR angio head wo/neck wo/w con DATE OF EXAM: 08/12/2021 COMPARISON: Carotid ultrasound 2 days ago. CTA head and neck 2 days ago HISTORY: Acute onset neuro deficit 2 days ago. TECHNIQUE: Multiplanar, multisequence imaging of the neck without and with IV contrast. Time of fligh t images focusing on the [place] of [place] were performed without and with IV contrast.. 2-D and 3-D postprocessing imaging is performed on an independent workstation and reviewed. FINDINGS: Examination is suboptimal as patient unable to hold still. Normal 3 vessel origin from aort ic arch redemonstrated. No significant stenosis in the arch vessels. Right common carotid artery rede monstrates normal origin from the right brachiocephalic artery. Mild narrowing in the proximal engineer intern al carotid arteries just past carotid bulbs greater on the right correlates with recent CTA neck stud y. No significant stenosis is present. There is nonvisualized right vertebral artery. There is small caliber left vertebral artery only seen in segments which becomes nonvisualized distally. Posterior vascular structures not included in fiel d-of-view on MRA neck imaging due to patient motion. Reference Series 801. Anterior circulation shows patent anterior communicating artery. There is no significant focal stenos is or aneurysm seen. Patent bilateral posterior to indicating arteries are seen better on CTA head st udy versus MRA head images. Left side is smaller in caliber. There is some contrast opacification of the basilar artery on MRA images presumed retrograde flow. On CT images this extends towards the dist al right basilar artery which shows complete occlusion and peripheral calcified plaque reference imag e 30 series 508. IMPRESSION: Suboptimal study in evaluating vertebral arteries. Patent Right vertebral artery is not identified correlating with recent CT and ultrasound images. Occluded distal portion is seen on recen t CT. Portion of patent small-caliber left vertebral artery is identified correlating with CT but thi s becomes stenotic or occluded distally seen better on CT. Some filling of the basilar artery is pres umed related to retrograde flow. No significant stenosis or aneurysm in the common or internal caroti d arteries or the anterior circulation.
--- NOTE | 2021-08-12 11:45 | MR ---
EXAMINATION TYPE: MR brain wo con DATE OF EXAM: 08/12/2021 COMPARISON: NONE HISTORY: Left facial numbness and weakness TECHNIQUE: T1-weighted sagittal, T2, FLAIR, and diffusion axial, and T2 coronal coronal views of the brain are submitted. FINDINGS: There is abnormal signal on diffusion within the left lateral margin of the medulla and within the le ft cerebellar hemisphere. Report called to patient's nurse 11:20 AM 08/12/2021. Intermediate area of s ignal seen within the right frontal white matter likely representing an area of subacute to chronic i nfarct. Moderate generalized degenerative change with diffuse nonspecific signal in the white matter bilatera lly most typical remote white matter ischemia. Focal area of abnormal signal right thalamus compatibl e with remote lacunar infarct. Tiny focus of abnormal signal involving the jazmin suggestive of tiny re mote infarct. Craniocervical junction is maintained in the sella turcica has a normal appearance. Changes of chroni c sinusitis. Orbits are symmetric. Chronic mastoiditis noted. IMPRESSION: 1. Acute ischemia left lateral margin of the distal and left cerebellar hemisphere. 2. Subacute to chronic area of ischemia within the right frontal white matter 3. Degenerative and diffuse nonspecific white matter changes most typical remote ischemia
[2021-08-12 11:46] LABS: Glucose,Whole Blood 274 mg/dL (75-99)
--- NOTE | 2021-08-12 13:00 | ECHOF ---
Referral Reason:stroke MEASUREMENTS -------- HEIGHT: 170.2 cm WEIGHT: 74.8 kg BP: 105/77 RVIDd: 2.9 cm (< 3.3) IVSd: 1.1 cm (0.6 - 1.1) LVIDd: 4.5 cm (3.9 - 5.3) LVPWd: 1.2 cm (0.6 - 1.1) IVSs: 1.9 cm LVIDs: 2.9 cm LVPWs: 1.6 cm LA Diam: 3.1 cm (2.7 - 3.8) LAESV Index (A-L): 24.33 ml/m Ao Diam: 3.2 cm (2.0 - 3.7) AV Cusp: 1.9 cm (1.5 - 2.6) MV EXCURSION: 17.614 mm (> 18.000) MV EF SLOPE: 79 mm/s (70 - 150) EPSS: 0.6 cm MV E Dimitrios: 0.78 m/s MV DecT: 342 ms MV A Dimitrios: 0.97 m/s MV E/A Ratio: 0.80 FINDINGS -------- Sinus rhythm. Suboptimal image quality - poor subcostal views. The left ventricular size is normal. There is borderline concentric left ventricular hypertrophy. Overall left ventricular systolic function is normal with, an EF between 60 - 65 %. The right ventricle is normal in size. Normal LA size by volume 22+/-6 ml/m2. The right atrium is normal in size. Interatrial and interventricular septum intact. The aortic valve is trileaflet, and appears structurally normal. No aortic stenosis or regurgitation. The mitral valve is normal. The tricuspid valve appears structurally normal. Unable to estimate RVSP due to inadequate TR jet s pectral doppler profile. The pulmonic valve is normal. The aortic root size is normal. IVC Not well visulized. There is no pericardial effusion. CONCLUSIONS -------- 1. The left ventricular size is normal. 2. There is borderline concentric left ventricular hypertrophy. 3. Overall left ventricular systolic function is normal with, an EF between 60 - 65 %. 4. There is no pericardial effusion. SHIP'S COOK: Alicia Randhawa [facility]
[2021-08-12] MEDS ORDERED: HEPARIN SODIUM 1,000 UN/ML (10ML VL) IV PRN (13:06)
[2021-08-12 14:19] LABS: Partial Thromboplastin Time 25.7 sec (22.0-30.0); Prothrombin Time 10.7 sec (9.0-12.0)
[2021-08-12] MEDS: HEPARIN SOD,PORK IN 0.45% NACL 25,000 UNIT in 0.45% NACL 1 250ML.BAG IV SCH (14:42)
[2021-08-12] MEDS: HYDROcodone/APAP 5-325MG 1 EACH TAB PO PRN (14:57)
--- NOTE | 2021-08-12 15:30 | CDI ---
Documentation Clarification Form Date: 08/12/2021 03:20:51 PM From: Trisha Garcia CCS, CCDS Admit Date: 08/10/2021 06:53:00 AM Patient Name: Abhay Leslie Visit Number: [id number] Discharge Date: ATTENTION: The Clinical Documentation Specialists (CDI) and [facility] Coding Staff appreciate your assistance in clarifying documentation. Please respond to the clarification below the line at the bottom and electronically sign. The CDI & [facility] Coding staff will review the response and follow-up if needed. Please note: Queries are made part of the Legal Health Record. If you have any questions, please contact the author of this message via ITS. Dr. Lemuel Atkinson: Your patient has a sodium level of 129 on 08/10. Please clarify if there is an additional diagnosis and/or clinical significance related to this lab value. History/Risk Factors per the 08/10 H/P: DM, Hypertension, CAD with previous stent & CABG, Prostate Cancer status post Prostatectomy, Smoker. Clinical indicators: Presented to the ED on 08/10 with Stroke like symptoms: left side weakness, left facial droop, ataxia & numbness & tingling. Admit with CVA 08/10 VS: T 98, P 67, R 18, BP 162/89, PO 99 RA, BMI: 25.8 08/10 LAB: Hgb 18.3, Hct 53.9, Pl Ct 137; Na 129, Cl 96, Glucose 447, Hgb A1c 11.6, Total Bilirubin, TSH 0.200 Treatment 08/10: Neuro assessments, Telemetry, Insulin sliding scale, O2 2Lnc, IV Na Cl 1,000 mls @ 999 mls/hr q1H, IV Ativan 1 mg x3, IV Na Cl 500 mls @ 999 mls/hr q31M, Heparin 5,000 unit sq q12H. Is there an additional diagnosis and/or clinical significance related to the above lab result/information? [ x ] Hyponatremia [ ] Abnormal Lab Value, not clinically significant [ ] Other condition, please specify: [ ] Unable to determine (Template Last Revised: July 2020) MTDD
--- NOTE | 2021-08-12 16:49 | P.PN ---
Subjective Progress Note Date: 08/12/21 61-year-old gentleman with history of diabetes, hypertension, prostate cancer in 2010, coronary artery disease status stent and post CABG who presented emergency department on at 22,022 for left-sided weakness and numbness. Patient stated that the on he was having nausea vomiting and dizziness and he went to urgent care and he was told he has vertigo. And then yesterday he said possibly 7:00 he noticed the he is having left-sided numbness and weakness over the left side predominantly left lower extremity and worsening. He denies any history of stroke in the past or TIAs. He stated that he takes aspirin 81 mg and Plavix 75 mg daily because of his heart condition and he is compliant taking them is not compliant taking diabetic medication because of financial reason that. Blood work revealed Sodium is 129, initial POC glucose is 456 otherwise rest of the Chem-7 is unremarkable. AST and 18 is within normal limits CT of the head reveals hypodensity consistent with chronic small vessel ischemia or demyelinating disease without change compared to old exam. No acute abnormality. Old lacunar infarct in the right thalamus. CT angiography of the head and neck is reported as subtotal occlusion of both vertebral arteries. Posterior cerebral arteries appear to be filling through the right posterior communicating artery. No significant intercranial and angiographic abnormality. Mild plaque formation at the origin of the internal carotid artery without hemodynamic stenosis at. 08/11/2021 Patient today resting bed. He states that he was up all night long having 73 days. Still complaining of some left-sided facial numbness and droop, denies any focal weakness in the left side today. A1c 11.6. Patient blood sugar 440 yesterday evening was started on insulin drip, blood sugars continue to be into the 300s today. Patient would like to be off the insulin drip and we can try and transition him. Sodium is improved to 133. TSH 0.200 however free T4 is 1.14. Patient echo pending and will undergo MRI later on today. Neurology following the patient closely. 08/12/2021 Patient evaluated today resting in bed after his MRI. MRI shows acute ischemia left lateral margin of medulla and left cerebral hemisphere as well as tiny focus of abnormal signal involving the jazmin suggestive of tiny remote infarct. Neurology has started patient on IV heparin, continues on brilenta and aspirin. Continue with neuro checks. Speech evaluation today shows worsening dysarthria with recurrent hiccuping which was also observed. Patient is on nectar thick liquids, no straws and aspiration precaution. Sodium today 132, potassium 4.6, chloride 96, CO2 29. Blood glucose elevated at 274. Added Levemir this morning, continue with levemir at bedtime as well as sliding scale plus scheduled insulin. Echocardiogram shows an EF of 60 to 65% with no pericardial effusion. Review of Systems Constitutional: Reports fatigue. Reports recurrent uncontrollable hiccuping. denied any fever. Cardio vascular: denied any chest pain, palpitations Gastrointestinal: denied any nausea, vomiting, diarrhea Pulmonary: Denied any shortness of breath cough Neurologic: Denies new focal deficits, reports continued facial numbness All inpatient medications were reviewed and appropriate changes in these medications as dictated in the interval history and assessment and plan. PHYSICAL EXAMINATION: GENERAL: The patient is alert and oriented x3, not in any acute distress. Well developed, well nourished. fatigued HEENT: Pupils are round and equally reacting to light. EOMI. No scleral icterus. No conjunctival pallor. Normocephalic, atraumatic. No pharyngeal erythema. No thyromegaly. CARDIOVASCULAR: S1 and S2 present. No murmurs, rubs, or gallops. PULMONARY: Chest is clear to auscultation, no wheezing or crackles. ABDOMEN: Soft, nontender, nondistended, normoactive bowel sounds. No palpable organomegaly. MUSCULOSKELETAL: No joint swelling or deformity. EXTREMITIES: No cyanosis, clubbing, or pedal edema. NEUROLOGICAL: Continues with left facial droop, dysarthric, with uncontrollable persistent hiccuping. SKIN: No rashes. Assessment and plan Assessment Acute stroke with left facial droop and facial numbness, today with worsening dysarthria, felt to be evolving started on IV heparin by neurology Uncontrolled hypertension, on captopril and metoprolol which are home me dications BP, blood pressure improved today Diabetes mellitus type 2 uncontrolled with A1C of 11.6, Increased levemir today, monitor blood glucose Persistent hiccuping Hyponatremia probably due to poor oral intake, improving Subclinical hyperthyroidism, follow up TSH outpatient, free T4 normal. CAD status post CABG, patient was on plavix at home which has been switched to brilenta, and was started on aspirin and statin this admission Gastroesophageal reflux disease, on protonix DVT prophylaxis GI prophylaxis Do Not Resuscitate Plan Continue current cardiac medications Monitor blood pressure Chlorpromazine added for hiccups IV heparin per neurology Increased levemir today Continue all other supportive care Ongoing speech therapy PT/OT Repeat labs in a.m. The impression and plan of care has been dictated by Tahmina Alcala, Nurse Practitioner as directed. Dr. China MD I have performed a history and physical examination and medical decision making of this patient, discussed the same with the dictator, and agree with the dictators assessment and plan as written, documented as a scribe. Based on total visit time, I have performed more than 50% of this visit. Objective - Vital Signs Vital signs: Vital Signs Temp 97.3 F L 08/12/21 11:33 Pulse 56 L 08/12/21 11:33 Resp 18 08/12/21 11:33 BP 135/78 08/12/21 11:33 Pulse Ox 99 08/12/21 11:33 Intake & Output 08/11/21 08/12/21 08/12/21 18:59 06:59 18:59 Intake Total 733.55 240 Output Total 1875 850 Balance -1141.45 -850 240 Weight 74.843 kg Intake: Intake, IV Titration 17.55 Amount Insulin Regular 100 unit 17.55 In Sodium Chloride 0.9% 100 ml @ Titrate IV .Q0M [facility] Rx#:[id number] Oral 716 240 Output: Urine 1875 850 Other: Voiding Method Urinal # Voids 1 1 # Bowel Movements 1 1 - Labs CBC & Chem 7: 08/11/21 06:00 08/12/21 05:41 Labs: Abnormal Lab Results - Last 24 Hours (Table) 08/11/21 08/11/21 08/11/21 Range/Units 13:59 15:58 18:00 Sodium (137-145) mmol/L Chloride (98-107) mmol/L Glucose (74-99) mg/dL POC Glucose (mg/dL) 313 H 271 H 249 H (75-99) mg/dL 08/11/21 08/12/21 08/12/21 Range/Units 20:11 05:41 07:03 Sodium 132 L (137-145) mmol/L Chloride 96 L (98-107) mmol/L Glucose 276 H (74-99) mg/dL POC Glucose (mg/dL) 285 H 297 H (75-99) mg/dL 08/12/21 Range/Units 11:44 Sodium (137-145) mmol/L Chloride (98-107) mmol/L Glucose (74-99) mg/dL POC Glucose (mg/dL) 274 H (75-99) mg/dL Assessment and Plan Time with Patient: Less than 30
[2021-08-12 17:11] LABS: Glucose,Whole Blood 306 mg/dL (75-99)
[2021-08-12] MEDS: chlorproMAZINE 25 MG TAB PO SCH ×2 (17:30→20:45)
[2021-08-12 20:09] LABS: Glucose,Whole Blood 260 mg/dL (75-99)
[2021-08-12] MEDS: INSULIN DETEMIR (LEVEMIR) 100 UNIT/ML SYR SQ SCH (20:45)
[2021-08-12] MEDS: ATORVASTATIN 80 MG TAB PO SCH (20:45)
[2021-08-13 04:34] LABS: Basophils # (A) 0.1 k/uL (0-0.2); Basophils % (A) 1 %; Eosinophils # (A) 0.1 k/uL (0-0.7); Eosinophils % (A) 1 %; HCT 52.4 % (39.0-53.0); HGB 18.1 gm/dL (13.0-17.5); Lymphocytes # (A) 1.8 k/uL (1.0-4.8); Lymphocytes % (A) 19 %; MCH 29.9 pg (25.0-35.0); MCHC 34.6 g/dL (31.0-37.0); MCV 86.4 fL (80.0-100.0); Mean Platelet Volume 6.6; Monocytes # (A) 0.7 k/uL (0-1.0); Monocytes % (A) 8 %; Neutrophils # (A) 6.8 k/uL (1.3-7.7); Neutrophils % (A) 70 %; Platelet Count 244 k/uL (150-450); RBC 6.07 m/uL (4.30-5.90); RDW 13.3 % (11.5-15.5); WBC 9.8 k/uL (3.8-10.6)
[2021-08-13 04:39] LABS: Partial Thromboplastin Time 57.8 sec (22.0-30.0); Prothrombin Time 11.1 sec (9.0-12.0)
[2021-08-13 04:40] LABS: African American GFR (CKD) >90 (>60 ml/min/1.73 sqM); Anion Gap 8 mmol/L; Blood Urea Nitrogen 20 mg/dL (9-20); Calcium 9.2 mg/dL (8.4-10.2); Carbon Dioxide 27 mmol/L (22-30); Chloride 96 mmol/L (98-107); Glucose 274 mg/dL (74-99); Non-African American GFR(CKD) >90 (>60 ml/min/1.73 sqM); Potassium 4.4 mmol/L (3.5-5.1); Sodium 131 mmol/L (137-145)
[2021-08-13 06:11] LABS: Glucose,Whole Blood 257 mg/dL (75-99)
[2021-08-13 06:55] LABS: Glucose,Whole Blood 338 mg/dL (75-99)
[2021-08-13] MEDS ORDERED: INSULIN DETEMIR (LEVEMIR) 100 UNIT/ML SYR SQ SCH (07:00)
[2021-08-13] MEDS: INSULIN ASPART (NovoLOG) 100 UNIT/ML VIAL SQ SCH ×7 (07:06→20:04)
--- NOTE | 2021-08-13 08:10 | CDI ---
Documentation Clarification Form Date: 08/13/2021 07:55:55 AM From: Trisha Garcia CCS, CCDS Admit Date: 08/10/2021 06:53:00 AM Patient Name: Abhay Leslie Visit Number: [id number] Discharge Date: ATTENTION: The Clinical Documentation Specialists (CDI) and [facility] Coding Staff appreciate your assistance in clarifying documentation. Please respond to the clarification below the line at the bottom and electronically sign. The CDI & [facility] Coding staff will review the response and follow-up if needed. Please note: Queries are made part of the Legal Health Record. If you have any questions, please contact the author of this message via ITS. Dr. Lemuel Atkinson: History of Hypertension and Uncontrolled Hypertension is documented beginning in the 08/10 History & Physical and in subsequent Progress Notes. Additional clarification is requested regarding the specificity of the patient's Hypertension.. History/Risk Factors per the 08/10 H/P: Diabetes, Hypertension, CAD status post Stent & CABG, Prostate Cancer status post Prostatectomy, Herniated Discs, Smoker. Clinical Indicators: Presented to the ED on 08/10 with stroke like symptoms: left side weakness, facial droop, recent vision change, ataxia, numbness & tingling. Admit with CVA Home meds: Aspirin 81 mg Daily, Plavix 75 mg Daily, Amaryl 2 mg BID, Toprol 25 mg Daily, Capoten 25 mg Daily, Glucophage 1,000 mg BID, Percocet q8H/prn 08/10 BP: 162/89, 166/99, 175/91, 181/97, 181/97, 168/104, 163/94, 163/94, 143/96, 164/91, 153/86 08/11 BP right arm: 170/82, 170/81, 182/81, 154/88, 149/83 Treatment 08/10: Neruo assessment, Telemetry, Insulin sliding scale, O2 2Lnc, IV Na 1,000 mls @ 999 mls/hr q1H, IV Ativan 1 mg x2, 0.5 mg x1; IV Na Cl 500 mls @ 999 mls/hr q31M, Insulin sliding scale, po Brillinta 180 mg x1, po Capoten 25 mg BID, Heparin 5,000 unit sq q12H Antihypertensive therapy held for permissive hypertension, IV Hydralazine if needed for BP >220 systolic and >110 diastolic. Can you please clarify the patient's hypertension? [ ] Hypertensive Urgency [ x ] Other specified Hypertension: [ ] Other, please specify: [ ] Unable to determine (Template Last Revised: July 2020) MTDD
[2021-08-13] MEDS: ASPIRIN 81 MG PO SCH (08:47)
[2021-08-13] MEDS: PANTOPRAZOLE 40 MG TABLET PO SCH (08:48)
[2021-08-13] MEDS: LINAGLIPTIN 5 MG TABLET PO SCH (08:48)
[2021-08-13] MEDS: chlorproMAZINE 25 MG TAB PO SCH ×3 (08:48→20:04)
[2021-08-13] MEDS: METOPROLOL SUCCINATE (ER) 25 MG TAB.ER.24H PO SCH (08:48)
[2021-08-13] MEDS: TICAGRELOR 90 MG TAB PO SCH ×2 (08:49→20:04)
[2021-08-13 12:08] LABS: Glucose,Whole Blood 265 mg/dL (75-99)
[2021-08-13] MEDS: ACETAMINOPHEN TAB 325 MG TAB PO PRN (13:03)
--- NOTE | 2021-08-13 13:16 | P.PN ---
Subjective Progress Note Date: 08/12/21 08/12/2021: Patient was seen for a follow-up. Patient's significant other was also present. Patient states he is feeling worse. No better for sure. Feels very dizzy. Sometimes gets double vision. Patient's hiccups are getting worse. Speech therapist was also present, who has failed that patient's swallowing has got worse and now she has downgraded him to nectar thick. 08/11/2021: Patient initially seen by Dr. Papo Grossman yesterday. Please refer to his note for details. 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 Patient tells me that his symptoms started on , 08/07/2021, 3 days prior to arrival when he started feeling dizzy and threw up. On Wednesday he went to urgent care and was felt he may have some vestibular dysfunction possibly viral. Since then he has been getting worse. Patient developed numbness of left side of the face, his balance was off, couldn't walk, had no control of the left side. Denies any weakness however. No numbness or tingling in the upper or lower extremities. Patient was not a candidate for TPA as he came outside the window for TPA. Patient's significant other was also present, who also provided with the above mentioned history. Patient has history of diabetes for 20 years, hypertension. Patient has smoked 1 pack per day for 45 years, out of which he did quit for 10 years, therefore in general 35 pack years of smoking tobacco. Patient had been on dual antiplatelet medications including aspirin 81 mg and Plavix 75 mg. Objective - Vital Signs Vital signs: Vital Signs Temp 97.3 F L 08/12/21 11:33 Pulse 56 L 08/12/21 11:33 Resp 18 08/12/21 11:33 BP 135/78 08/12/21 11:33 Pulse Ox 99 08/12/21 11:33 Intake & Output 08/11/21 08/12/21 08/12/21 18:59 06:59 18:59 Intake Total 733.55 240 Output Total 1875 850 Balance -1141.45 -850 240 Weight 74.843 kg Intake: Intake, IV Titration 17.55 Amount Insulin Regular 100 unit 17.55 In Sodium Chloride 0.9% 100 ml @ Titrate IV .Q0M [facility] Rx#:[id number] Oral 716 240 Output: Urine 1875 850 Other: Voiding Method Urinal # Voids 1 1 # Bowel Movements 1 1 - Exam Patient is a middle aged male, in no acute distress. Patient is f requently hiccuping. Patient is slightly drowsy but is otherwise awake oriented to time place and pe rson. Patient appears slightly spacey. Speech is mildly hoarse, with mild dysarthric and language functions are normal. Patient can name and repeat very well. Attention, concentration and fund of knowledge is adequate. Patient has poor cough. He has failed swallow today. On cranial examination, pupils are equal, round and reacting to light, visual anderson are full on confrontation, extraocular muscles are intact with nonsustained, coarse nystagmus on the left gaze. Face is symmetric, tongue protrudes to the midline. Palatal elevation and sensation normal, hearing and shoulder shrug normal, facial sensation decreased for touch on the left. Shoulder shrug normal. On muscle strength testing, there is no pronator drift and the strength is normal in arms and legs distally and proximally. Deep tendon reflexes are (right/left) biceps 2+/1+, brachioradialis 2+/1, knee 1+/1+, ankles 1/1 and plantar is up on the right, down on the left. Sensory to touch is equal in the upper and lower limbs with no neglect on double simultaneous stimulation. Sensory to temperature decreased in the right arm and leg, as compared to the left side. Cerebellar function reveals severe ataxia for [id number] and [id number]-[id number] testing on the left side, and v mild ataxia on the right side. Gait not checked. On general examination, there is no carotid bruit or murmur, S1-S2 audible. Abdomen is soft nontender. Chest is clear. Peripheral pulses are present. No edema. - Labs CBC & Chem 7: 08/13/21 03:59 08/13/21 03:59 Labs: Abnormal Lab Results - Last 24 Hours (Table) 08/11/21 08/11/21 08/11/21 Range/Units 13:59 15:58 18:00 Sodium (137-145) mmol/L Chloride (98-107) mmol/L Glucose (74-99) mg/dL POC Glucose (mg/dL) 313 H 271 H 249 H (75-99) mg/dL 08/11/21 08/12/21 08/12/21 Range/Units 20:11 05:41 07:03 Sodium 132 L (137-145) mmol/L Chloride 96 L (98-107) mmol/L Glucose 276 H (74-99) mg/dL POC Glucose (mg/dL) 285 H 297 H (75-99) mg/dL 08/12/21 Range/Units 11:44 Sodium (137-145) mmol/L Chloride (98-107) mmol/L Glucose (74-99) mg/dL POC Glucose (mg/dL) 274 H (75-99) mg/dL Assessment and Plan Assessment: 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 MRI of the brain revealed an acute stroke in the left lateral medullary region as well as left cerebellar hemisphere. CTA of the head showed possibility of occlusion versus thrombus/clot in the right vertebral artery. No evidence of dissection. Dysphagia, hiccups due to above. Uncontrolled hypertension. History of coronary artery disease status post stent Status post CABG History of hypertension Diabetes mellitus, uncontrolled. Patient stated that he is noncompliance because of financial reason. Tobacco use Plan: * MRI of the brain revealed acute ischemia left lateral margin of the Medulla, and in the left cerebellar hemisphere. Patient has Wallenberg syndrome. I personally reviewed MRI of the brain and agree with the findings. * MRA of the head and neck showed suboptimal study in evaluating vertebral arteries. Patent right vertebral artery is not identified, correlating with recent CTA and ultrasound images. Occluded distal portion is seen on recent CT. Portion of patent small-caliber left vertebral artery is identified correlating with CTA but this become stenotic or occluded distally seen better on CT. Some filling of the basilar artery is presumed related to retrograde flow. No significant stenosis or aneurysm in the common or internal carotid arteries or the anterior circulation. I discussed MRI, MRA and CTA images with Dr. Foley. Concerned about presence of a thrombus in the right vertebral artery. * Patient's symptoms are getting worse. Patient has a possible thrombus/clot in the right vertebral artery. He is at high risk for developing basilar artery thrombosis. We will start patient on anticoagulation with heparin. We will stop Brilinta. Continue aspirin. * CT angiography of the head and neck is reported as subtotal occlusion of both vertebral arteries. Posterior cerebral arteries appear to be filling through the right posterior communicating artery. No significant intercranial and angiographic abnormality. Mild plaque formation at the origin of the internal carotid artery without hemodynamic stenosis at. * 2-D echo revealed normal left-ventricular size. Borderline concentric LVH. EF is between 60-65%. No pericardial effusion. Left atrial size is normal.. * Lipid panel cholesterol 197, LDL 127, HDL 45, triglycerides 121. Continue Lipitor 80 mg. * Hemoglobin A1c 11.6. Optimize control of diabetes to target A1c <7.0. * TSH is low 0.20 (0.46-4.6). Free T4 is normal 1.14. We will defer to IM to address abnormal thyroid functions. * PT, OT and RESIDENT SERVICES MANAGER are consulted. Patient's swallow has got worse, now on nectar thick diet. * Continue neuro checks * On cardiac monitoring. Telemetry monitoring showing sinus bradycardia in the 57. * Patient was counseled on tobacco cessation. * Discussed with Dr. Atkinson * Complexity high.
--- NOTE | 2021-08-13 14:07 | P.PN ---
Subjective Progress Note Date: 08/13/21 61-year-old gentleman with history of diabetes, hypertension, prostate cancer in 2010, coronary artery disease status stent and post CABG who presented emergency department on at 22,022 for left-sided weakness and numbness. Patient stated that the on he was having nausea vomiting and dizziness and he went to urgent care and he was told he has vertigo. And then yesterday he said possibly 7:00 he noticed the he is having left-sided numbness and weakness over the left side predominantly left lower extremity and worsening. He denies any history of stroke in the past or TIAs. He stated that he takes aspirin 81 mg and Plavix 75 mg daily because of his heart condition and he is compliant taking them is not compliant taking diabetic medication because of financial reason that. Blood work revealed Sodium is 129, initial POC glucose is 456 otherwise rest of the Chem-7 is unremarkable. AST and 18 is within normal limits CT of the head reveals hypodensity consistent with chronic small vessel ischemia or demyelinating disease without change compared to old exam. No acute abnormality. Old lacunar infarct in the right thalamus. CT angiography of the head and neck is reported as subtotal occlusion of both vertebral arteries. Posterior cerebral arteries appear to be filling through the right posterior communicating artery. No significant intercranial and angiographic abnormality. Mild plaque formation at the origin of the internal carotid artery without hemodynamic stenosis at. 08/11/2021 Patient today resting bed. He states that he was up all night long having 73 days. Still complaining of some left-sided facial numbness and droop, denies any focal weakness in the left side today. A1c 11.6. Patient blood sugar 440 yesterday evening was started on insulin drip, blood sugars continue to be into the 300s today. Patient would like to be off the insulin drip and we can try and transition him. Sodium is improved to 133. TSH 0.200 however free T4 is 1.14. Patient echo pending and will undergo MRI later on today. Neurology following the patient closely. 08/12/2021 Patient evaluated today resting in bed after his MRI. MRI shows acute ischemia left lateral margin of medulla and left cerebral hemisphere as well as tiny focus of abnormal signal involving the jazmin suggestive of tiny remote infarct. Neurology has started patient on IV heparin, continues on brilenta and aspirin. Continue with neuro checks. Speech evaluation today shows worsening dysarthria with recurrent hiccuping which was also observed. Patient is on nectar thick liquids, no straws and aspiration precaution. Sodium today 132, potassium 4.6, chloride 96, CO2 29. Blood glucose elevated at 274. Added Levemir this morning, continue with levemir at bedtime as well as sliding scale plus scheduled insulin. Echocardiogram shows an EF of 60 to 65% with no pericardial effusion. 08/13/2021 Patient evaluated today resting in bed. Neurologically has improved since yesterday, Speech has improved. Hiccups have also improved on chlropromazine. Still concerns with dysphasia and ongoing speech evaluation. Patient to undergo modified barium swallow. Sodium 131, potassium 4.4, blood glucose continues to be elevated in the 250s. Levemir was increased. Continue to hydrate with IV fluids. Patient will continue on IV heparin, brilenta stopped, will transition to oral anticoagulation tomorrow. Blood pressure improved 136/58, percent room air. Long discussion at bedside with patient and family regarding lifestyle modifications and risk factors for stroke. Review of Systems Constitutional: Reports fatigue. Reports recurrent uncontrollable hiccuping. denied any fever. Cardio vascular: denied any chest pain, palpitations Gastrointestinal: denied any nausea, vomiting, diarrhea Pulmonary: Denied any shortness of breath cough Neurologic: Denies new focal deficits, reports continued facial numbness All inpatient medications were reviewed and appropriate changes in these medi cations as dictated in the interval history and assessment and plan. PHYSICAL EXAMINATION: GENERAL: The patient is alert and oriented x3, not in any acute distress. Well developed, well nourished. fatigued HEENT: Pupils are round and equally reacting to light. EOMI. No scleral icterus. No conjunctival pallor. Normocephalic, atraumatic. No pharyngeal erythema. No thyromegaly. CARDIOVASCULAR: S1 and S2 present. No murmurs, rubs, or gallops. PULMONARY: Chest is clear to auscultation, no wheezing or crackles. ABDOMEN: Soft, nontender, nondistended, normoactive bowel sounds. No palpable organomegaly. MUSCULOSKELETAL: No joint swelling or deformity. EXTREMITIES: No cyanosis, clubbing, or pedal edema. NEUROLOGICAL: Continues with left facial droop, dysarthric, with uncontrollable persistent hiccuping. SKIN: No rashes. Assessment and plan Assessment Acute ischemic stroke with left facial droop and facial numbness with MRI positive for acute stroke left lateral medulla, left ceribellar hemisphere. Possible occlusion versus thrombus/clot right vertebral artery with out evidence for dissection. Uncontrolled hypertension, probably noncomplaint with medications at home, on captopril and metoprolol blood pressure improved Diabetes mellitus type 2 uncontrolled with A1C of 11.6, Increased levemir today, monitor blood glucose Persistent hiccuping, dysphagia - hiccups improving Hyponatremia probably due to poor oral intake, improving Subclinical hyperthyroidism, follow up TSH outpatient, free T4 normal. CAD status post CABG, patient was on plavix at home which has been switched to brilenta, and was started on aspirin and statin this admission Gastroesophageal reflux disease, on protonix Daily smoker counseling provided, nicotine patch offered Occasional marijuana use DVT prophylaxis GI prophylaxis Do Not Resuscitate Plan Continue current cardiac medications Monitor blood pressure Continue IV heparin Increased levemir Continue all other supportive care Ongoing speech therapy PT/OT Repeat labs in a.m. The impression and plan of care has been dictated by Tahmina Alcala, Nurse Practitioner as directed. Dr. China MD I have performed a history and physical examination and medical decision making of this patient, discussed the same with the dictator, and agree with the dictators assessment and plan as written, documented as a scribe. Based on total visit time, I have performed more than 50% of this visit. Objective - Vital Signs Vital signs: Vital Signs Temp 94.6 F L 08/13/21 11:28 Pulse 67 08/13/21 11:28 Resp 12 08/13/21 11:28 BP 136/58 08/13/21 11:28 Pulse Ox 100 08/13/21 07:49 Intake & Output 08/12/21 08/13/21 08/13/21 18:59 06:59 18:59 Intake Total 600 543.736 0 Output Total 725 600 350 Balance -125 -56.264 -350 Intake: Intake, IV Titration 53.736 Amount Heparin Sod,Pork in 0.45% 53.736 NaCl 25,000 unit In 0.45 % NaCl 1 250ml.bag @ 12 UNITS/KG/HR 8.981 mls/hr IV .Q24H [facility] Rx#: [id number] Oral 600 490 0 Output: Urine 725 600 350 Other: Voiding Method Urinal Urinal Urinal # Voids 1 1 0 # Bowel Movements 1 - Labs CBC & Chem 7: 08/13/21 03:59 08/13/21 03:59 Labs: Abnormal Lab Results - Last 24 Hours (Table) 08/12/21 08/12/21 08/12/21 Range/Units 17:09 19:47 20:07 RBC (4.30-5.90) m/uL Hgb (13.0-17.5) gm/dL APTT 111.7 H* (22.0-30.0) sec Sodium (137-145) mmol/L Chloride (98-107) mmol/L Glucose (74-99) mg/dL POC Glucose (mg/dL) 306 H 260 H (75-99) mg/dL 08/13/21 08/13/21 08/13/21 Range/Units 03:59 03:59 03:59 RBC 6.07 H (4.30-5.90) m/uL Hgb 18.1 H (13.0-17.5) gm/dL APTT 57.8 H (22.0-30.0) sec Sodium 131 L (137-145) mmol/L Chloride 96 L (98-107) mmol/L Glucose 274 H (74-99) mg/dL POC Glucose (mg/dL) (75-99) mg/dL 08/13/21 08/13/21 08/13/21 Range/Units 06:09 06:53 12:07 RBC (4.30-5.90) m/uL Hgb (13.0-17.5) gm/dL APTT (22.0-30.0) sec Sodium (137-145) mmol/L Chloride (98-107) mmol/L Glucose (74-99) mg/dL POC Glucose (mg/dL) 257 H 338 H 265 H (75-99) mg/dL Assessment and Plan Time with Patient: Greater than 30
--- NOTE | 2021-08-13 16:14 | FL ---
EXAMINATION TYPE: FL barium swallow w video DATE OF EXAM: 08/13/2021 COMPARISON: NONE HISTORY: Failed bedside evaluation TECHNIQUE: Fluoroscopy. FINDINGS: Fluoroscopic guidance was provided for the procedure performed in conjunction with the [facility] pathology department. Please see complete report forthcoming from the Speech Pathology departmen t. Various consistencies from thin liquid to solids were administered. Fluoroscopy time 3 minutes 6 seconds. Number of images: 0. Deep aspiration was evident with thin liquids. Initial swallowing was with silent aspiration. Penetra tion was evident with nectar thick liquids. Some mild occasional transient penetration was observed w ith honey thick consistency. Moderate pooling is through the vallecula throughout the examination. Pooling could be cleared with nectar thick liquids. IMPRESSION: 1. Aspiration with thin liquids. 2. Penetration with nectar thick liquids and occasional penetration with honey thick consistency. 3. Pooling within the vallecula
[2021-08-13 16:41] LABS: Glucose,Whole Blood 280 mg/dL (75-99)
--- NOTE | 2021-08-13 18:01 | P.PN ---
Subjective Progress Note Date: 08/13/21 08/13/2021: Patient was seen for a follow-up. Patient's significant other was also present. Patient is overall better. Patient's hiccups have improved with Thorazine 25 mg 3 times a day. Patient states that he is noticing some diplopia,, gets dizzy and then get headache. Patient had a headache earlier 09/30 but now is improved /10. His speech has improved, still with some dysphagia. Patient is less wobbly while walking with assistance. No new neurological symptoms. Telemetry monitoring showing sinus rhythm, sinus bradycardia. 08/12/2021: Patient was seen for a follow-up. Patient's significant other was also present. Patient states he is feeling worse. No better for sure. Feels very dizzy. Sometimes gets double vision. Patient's hiccups are getting worse. Speech therapist was also present, who has failed that patient's swallowing has got worse and now she has downgraded him to nectar thick. 08/11/2021: Patient initially seen by Dr. Papo Grossman yesterday. Please refer to his note for details. 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 Patient tells me that his symptoms started on , 08/07/2021, 3 days prior to arrival when he started feeling dizzy and threw up. On Wednesday he went to urgent care and was felt he may have some vestibular dysfunction possibly viral. Since then he has been getting worse. Patient developed numbness of left side of the face, his balance was off, couldn't walk, had no control of the left side. Denies any weakness however. No numbness or tingling in the upper or lower extremities. Patient was not a candidate for TPA as he came outside the window for TPA. Patient's significant other was also present, who also provided with the above mentioned history. Patient has history of diabetes for 20 years, hypertension. Patient has smoked 1 pack per day for 45 years, out of which he did quit for 10 years, therefore in general 35 pack years of smoking tobacco. Patient had been on dual antiplatelet medications including aspirin 81 mg and Plavix 75 mg. Objective - Vital Signs Vital signs: Vital Signs Temp 94.6 F L 08/13/21 11:28 Pulse 67 08/13/21 11:28 Resp 12 08/13/21 11:28 BP 136/58 08/13/21 11:28 Pulse Ox 100 08/13/21 07:49 Intake & Output 08/12/21 08/13/21 08/13/21 18:59 06:59 18:59 Intake Total 600 543.736 0 Output Total 725 600 350 Balance -125 -56.264 -350 Intake: Intake, IV Titration 53.736 Amount Heparin Sod,Pork in 0.45% 53.736 NaCl 25,000 unit In 0.45 % NaCl 1 250ml.bag @ 12 UNITS/KG/HR 8.981 mls/hr IV .Q24H [facility] Rx#: [id number] Oral 600 490 0 Output: Urine 725 600 350 Other: Voiding Method Urinal Urinal Urinal # Voids 1 1 0 # Bowel Movements 1 - Exam Patient is a middle aged male, in no acute distress. Patient is frequently hiccuping. Patient is slightly drowsy but is otherwise awake oriented to time place and person. Patient is more alert and interactive. Speech is mildly hoarse, with mild dysarthric and language functions are normal. Patient can name and repeat very well. Attention, concentration and fund of knowledge is adequate. On cranial examination, patient has mild right ptosis. No definite anisocoria. His pupils are equal, round and reacting to light, visual anderson are full on confrontation, extraocular muscles are intact with nonsustained, coarse nystagmus on the left gaze. Face is symmetric, tongue protrudes to the midline. Palatal elevation appears slightly low on the left and sensation normal, hearing and shoulder shrug normal, facial sensation decreased for touch on the left. Shoulder shrug normal. On muscle strength testing, there is no pronator drift and the strength is norm al in arms and legs distally and proximally. Deep tendon reflexes are (right/left) biceps 1+/1, brachioradialis 2/1, knee 1+/1+, ankles 0/0 and plantar is up on the right, down on the left. Sensory to touch is equal in the upper and lower limbs with no neglect on double simultaneous stimulation. Sensory to temperature decreased in the right arm and leg, as compared to the left side. Cerebellar function reveals severe ataxia for [id number] and [id number] testing on the left side. There is no definite ataxia on the right side. Gait not checked. On general examination, there is no carotid bruit or murmur, S1-S2 audible. Abdomen is soft nontender. Chest is clear. Peripheral pulses are present. No edema. - Labs CBC & Chem 7: 08/13/21 03:59 08/13/21 03:59 Labs: Abnormal Lab Results - Last 24 Hours (Table) 08/12/21 08/12/21 08/12/21 Range/Units 17:09 19:47 20:07 RBC (4.30-5.90) m/uL Hgb (13.0-17.5) gm/dL APTT 111.7 H* (22.0-30.0) sec Sodium (137-145) mmol/L Chloride (98-107) mmol/L Glucose (74-99) mg/dL POC Glucose (mg/dL) 306 H 260 H (75-99) mg/dL 08/13/21 08/13/21 08/13/21 Range/Units 03:59 03:59 03:59 RBC 6.07 H (4.30-5.90) m/uL Hgb 18.1 H (13.0-17.5) gm/dL APTT 57.8 H (22.0-30.0) sec Sodium 131 L (137-145) mmol/L Chloride 96 L (98-107) mmol/L Glucose 274 H (74-99) mg/dL POC Glucose (mg/dL) (75-99) mg/dL 08/13/21 08/13/21 08/13/21 Range/Units 06:09 06:53 12:07 RBC (4.30-5.90) m/uL Hgb (13.0-17.5) gm/dL APTT (22.0-30.0) sec Sodium (137-145) mmol/L Chloride (98-107) mmol/L Glucose (74-99) mg/dL POC Glucose (mg/dL) 257 H 338 H 265 H (75-99) mg/dL Assessment and Plan Assessment: 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 MRI of the brain revealed an acute stroke in the left lateral medullary region as well as left cerebellar hemisphere. CTA of the head showed possibility of occlusion versus thrombus/clot in the right vertebral artery. No definitive evidence of dissection. Dysphagia, diplopia, nystagmus, hiccups due to above. Uncontrolled hypertension. History of coronary artery disease status post stent Status post CABG History of hypertension Diabetes mellitus, uncontrolled. Patient stated that he is noncompliance because of financial reason. Tobacco use Plan: * Patient has clinically improved. Patient will be continued on heparin. Patient's PTT is therapeutic 57.8. May start Coumadin from tomorrow (versus newer agent). * MRI of the brain revealed acute ischemia left lateral margin of the Medulla, and in the left cerebellar hemisphere. Patient has Wallenberg syndrome. I personally reviewed MRI of the brain and agree with the findings. * MRA of the head and neck showed suboptimal study in evaluating vertebral arteries. Patent right vertebral artery is not identified, correlating with recent CTA and ultrasound images. Occluded distal portion is seen on recent CT. Portion of patent small-caliber left vertebral artery is identified correlating with CTA but this become stenotic or occluded distally seen better on CT. Some filling of the basilar artery is presumed related to retrograde flow. No significant stenosis or aneurysm in the common or internal carotid arteries or the anterior circulation. I discussed MRI, MRA and CTA images with Dr. Foley. Concerned about presence of a thrombus in the right vertebral artery. * Patient has failed combination of Plavix and aspirin, and his symptoms progressed while being on aspirin and Brilinta. Patient now on full anticoagulation. Also on low-dose aspirin. * CT angiography of the head and neck is reported as subtotal occlusion of both vertebral arteries. Posterior cerebral arteries appear to be filling through the right posterior communicating artery. No significant intercranial and angiographic abnormality. Mild plaque formation at the origin of the internal carotid artery without hemodynamic stenosis at. * 2-D echo revealed normal left-ventricular size. Borderline concentric LVH. EF is between 60-65%. No pericardial effusion. Left atrial size is normal.. * Lipid panel cholesterol 197, LDL 127, HDL 45, triglycerides 121. Continue Lipitor 80 mg. * Hemoglobin A1c 11.6. Optimize control of diabetes to target A1c <7.0. * TSH is low 0.20 (0.46-4.6). Free T4 is normal 1.14. We will defer to IM to address abnormal thyroid functions. * PT, OT and [employer]AFF [employer] T[employer] OFFICER are consulted. Patient's swallow has got worse, now on nectar thick diet. * Continue neuro checks * On cardiac monitoring. Telemetry monitoring showing sinus rhythm, sinus bradycardia in the 57. * Patient was counseled on tobacco cessation. * Discussed with Dr. Atkinson
[2021-08-13] MEDS: HEPARIN SOD,PORK IN 0.45% NACL 25,000 UNIT in 0.45% NACL 1 250ML.BAG IV SCH ×2 (18:27→20:08)
[2021-08-13 19:57] LABS: Glucose,Whole Blood 308 mg/dL (75-99)
[2021-08-13] MEDS: ATORVASTATIN 80 MG TAB PO SCH (20:04)
[2021-08-13] MEDS: INSULIN DETEMIR (LEVEMIR) 100 UNIT/ML SYR SQ SCH (20:04)
[2021-08-13] MEDS: SODIUM CHLORIDE 0.9% 1,000 ML IV SCH (20:08)
[2021-08-14] MEDS: SODIUM CHLORIDE 0.9% 1,000 ML IV SCH ×2 (04:47→21:43)
[2021-08-14 06:14] LABS: Glucose,Whole Blood 218 mg/dL (75-99)
[2021-08-14] MEDS: INSULIN ASPART (NovoLOG) 100 UNIT/ML VIAL SQ SCH ×7 (06:41→21:19)
[2021-08-14] MEDS: INSULIN DETEMIR (LEVEMIR) 100 UNIT/ML SYR SQ SCH ×2 (06:42→21:20)
[2021-08-14 06:43] LABS: African American GFR (CKD) >90 (>60 ml/min/1.73 sqM); Anion Gap 7 mmol/L; Blood Urea Nitrogen 17 mg/dL (9-20); Calcium 9.3 mg/dL (8.4-10.2); Carbon Dioxide 29 mmol/L (22-30); Chloride 99 mmol/L (98-107); Glucose 228 mg/dL (74-99); Non-African American GFR(CKD) 90 (>60 ml/min/1.73 sqM); Potassium 4.1 mmol/L (3.5-5.1); Sodium 135 mmol/L (137-145)
[2021-08-14] MEDS: PANTOPRAZOLE 40 MG TABLET PO SCH (10:14)
[2021-08-14] MEDS: chlorproMAZINE 25 MG TAB PO SCH ×3 (10:14→21:42)
[2021-08-14] MEDS: ASPIRIN 81 MG PO SCH (10:14)
[2021-08-14] MEDS: METOPROLOL SUCCINATE (ER) 25 MG TAB.ER.24H PO SCH (10:14)
[2021-08-14] MEDS: LINAGLIPTIN 5 MG TABLET PO SCH (10:14)
[2021-08-14] MEDS: TICAGRELOR 90 MG TAB PO SCH (10:14)
[2021-08-14 11:50] LABS: Glucose,Whole Blood 148 mg/dL (75-99)
--- NOTE | 2021-08-14 12:23 | P.PN ---
Subjective Progress Note Date: 08/14/21 61-year-old gentleman with history of diabetes, hypertension, prostate cancer in 2010, coronary artery disease status stent and post CABG who presented emergency department on at 22,022 for left-sided weakness and numbness. Patient stated that the on he was having nausea vomiting and dizziness and he went to urgent care and he was told he has vertigo. And then yesterday he said possibly 7:00 he noticed the he is having left-sided numbness and weakness over the left side predominantly left lower extremity and worsening. He denies any history of stroke in the past or TIAs. He stated that he takes aspirin 81 mg and Plavix 75 mg daily because of his heart condition and he is compliant taking them is not compliant taking diabetic medication because of financial reason that. Blood work revealed Sodium is 129, initial POC glucose is 456 otherwise rest of the Chem-7 is unremarkable. AST and 18 is within normal limits CT of the head reveals hypodensity consistent with chronic small vessel ischemia or demyelinating disease without change compared to old exam. No acute abnormality. Old lacunar infarct in the right thalamus. CT angiography of the head and neck is reported as subtotal occlusion of both vertebral arteries. Posterior cerebral arteries appear to be filling through the right posterior communicating artery. No significant intercranial and angiographic abnormality. Mild plaque formation at the origin of the internal carotid artery without hemodynamic stenosis at. 08/11/2021 Patient today resting bed. He states that he was up all night long having 73 days. Still complaining of some left-sided facial numbness and droop, denies any focal weakness in the left side today. A1c 11.6. Patient blood sugar 440 yesterday evening was started on insulin drip, blood sugars continue to be into the 300s today. Patient would like to be off the insulin drip and we can try and transition him. Sodium is improved to 133. TSH 0.200 however free T4 is 1.14. Patient echo pending and will undergo MRI later on today. Neurology following the patient closely. 08/12/2021 Patient evaluated today resting in bed after his MRI. MRI shows acute ischemia left lateral margin of medulla and left cerebral hemisphere as well as tiny focus of abnormal signal involving the jazmin suggestive of tiny remote infarct. Neurology has started patient on IV heparin, continues on brilenta and aspirin. Continue with neuro checks. Speech evaluation today shows worsening dysarthria with recurrent hiccuping which was also observed. Patient is on nectar thick liquids, no straws and aspiration precaution. Sodium today 132, potassium 4.6, chloride 96, CO2 29. Blood glucose elevated at 274. Added Levemir this morning, continue with levemir at bedtime as well as sliding scale plus scheduled insulin. Echocardiogram shows an EF of 60 to 65% with no pericardial effusion. 08/13/2021 Patient evaluated today resting in bed. Neurologically has improved since yesterday, Speech has improved. Hiccups have also improved on chlropromazine. Still concerns with dysphasia and ongoing speech evaluation. Patient to undergo modified barium swallow. Sodium 131, potassium 4.4, blood glucose continues to be elevated in the 250s. Levemir was increased. Continue to hydrate with IV fluids. Patient will continue on IV heparin, brilenta stopped, will transition to oral anticoagulation tomorrow. Blood pressure improved 136/58, percent room air. Long discussion at bedside with patient and family regarding lifestyle modifications and risk factors for stroke. 08/14/2021 Patient evaluated today resting in bed with family at the bedside. Speech is further improved today. Patient currently denies pain, shortness of breath. Modified barium shows penetration with nectar thick liquids and occasional penetration with honey thick. Continues on ground diet with honey thick liquids 1:1 supervision, no straws and aspiration precautions. Patient will be switched to eliquis and aspirin 81 mg today. Blood sugars have improved currently 218, and 148. May need to decrease HS dose of levemir as he was running in the 300s yesterday to avoid hypoglycemia. Cholesterol panel completed triglycerides 121, total cholesterol 197, LDL 127, HDL 45. Folate and B12 within normal limits. Sodium today 135. Continues on gentle hydration at 50 ml per hour and continue to encourage oral intake. PT/OT on, encourage patient to sit up in chair. Has not gotten out of bed. Afebrile, blood pressure 161/79. Home with HC vs Inpatient rehab, will consult Dr Javier for evaluation. Review of Systems Constitutional: Reports fatigue. Reports recurrent hiccuping. denied any fever. Cardio vascular: denied any chest pain, palpitations Gastrointestinal: denied any nausea, vomiting, diarrhea Pulmonary: Denied any shortness of breath cough Neurologic: Denies new focal deficits, reports continued facial numbness All inpatient medications were reviewed and appropriate changes in these medications as dictated in the interval history and assessment and plan. PHYSICAL EXAMINATION: GENERAL: The patient is alert and oriented x3, not in any acute distress. Well developed, well nourished. fatigued HEENT: Pupils are round and equally reacting to light. EOMI. No scleral icterus. No conjunctival pallor. Normocephalic, atraumatic. No pharyngeal erythema. No thyromegaly. CARDIOVASCULAR: S1 and S2 present. No murmurs, rubs, or gallops. PULMONARY: Chest is clear to auscultation, no wheezing or crackles. ABDOMEN: Soft, nontender, nondistended, normoactive bowel sounds. No palpable organomegaly. MUSCULOSKELETAL: No joint swelling or deformity. EXTREMITIES: No cyanosis, clubbing, or pedal edema. NEUROLOGICAL: Continues with left facial droop, dysarthria improving and hiccuping improving. SKIN: No rashes. Assessment and plan Assessment Acute ischemic stroke with left facial droop and facial numbness with MRI positive for acute stroke left lateral medulla, left ceribellar hemisphere. Possible occlusion versus thrombus/clot right vertebral artery with out evidence for dissection. Progression of symptoms while on dual antiplatelet therapy with aspirin and brilenta. Patient was switched to IV heparin, and will now transition to anticoagulation. Uncontrolled hypertension, probably noncomplaint with medications at home, on captopril and metoprolol blood pressure improved Diabetes mellitus type 2 uncontrolled with A1C of 11.6, blood glucose now in the 150-200s. Continue to monitor closely and make adjustments as needed. Persistent hiccuping, dysphagia - hiccups improving on thorazine. Hyponatremia probably due to poor oral intake, improving Subclinical hyperthyroidism, follow up TSH outpatient, free T4 normal. CAD status post CABG, patient was on plavix at home which has been switched to brilenta, and was started on aspirin and statin this admission. Patient will now be on eliquis/aspirin combination, brilenta discontinued. Gastroesophageal reflux disease, on protonix Daily smoker counseling provided, nicotine patch offered Occasional marijuana use DVT prophylaxis GI prophylaxis Do Not Resuscitate Plan Continue current cardiac medications Monitor blood pressure Transition to eliquis today Monitor blood sugars Continue all other supportive care Ongoing speech therapy PT/OT Discharge planning - home with homecare vs. IP rehab The impression and plan of care has been dictated by Tahmina Alcala, Nurse Practitioner as directed. Dr. China MD I have performed a history and physical examination and medical decision making of this patient, discussed the same with the dictator, and agree with the dictators assessment and plan as written, documented as a scribe. Based on total visit time, I have performed more than 50% of this visit. Objective - Vital Signs Vital signs: Vital Signs Temp 98.2 F 08/14/21 08:00 Pulse 64 08/14/21 08:00 Resp 18 08/14/21 08:00 BP 161/79 08/14/21 08:00 Pulse Ox 96 08/14/21 11:40 Intake & Output 08/13/21 08/14/21 08/14/21 18:59 06:59 18:59 Intake Total 360 511.223 360 Output Total 350 3225 Balance 10 -6063.777 360 Intake: Intake, IV Titration 151.223 Amount Heparin Sod,Pork in 0.45% 151.223 NaCl 25,000 unit In 0.45 % NaCl 1 250ml.bag @ 12 UNITS/KG/HR 8.981 mls/hr IV .Q24H [facility] Rx#: [id number] Oral 360 360 360 Output: Urine 350 3225 Other: Voiding Method Urinal # Voids 0 - Labs CBC & Chem 7: 08/13/21 03:59 08/14/21 05:30 Labs: Abnormal Lab Results - Last 24 Hours (Table) 08/13/21 08/13/21 08/14/21 Range/Units 16:39 19:55 05:30 APTT 42.8 H (22.0-30.0) sec Sodium (137-145) mmol/L Glucose (74-99) mg/dL POC Glucose (mg/dL) 280 H 308 H (75-99) mg/dL 08/14/21 08/14/21 08/14/21 Range/Units 05:30 06:12 11:47 APTT (22.0-30.0) sec Sodium 135 L (137-145) mmol/L Glucose 228 H (74-99) mg/dL POC Glucose (mg/dL) 218 H 148 H (75-99) mg/dL Assessment and Plan Time with Patient: Greater than 30
[2021-08-14] MEDS: APIXABAN 5 MG TAB PO SCH ×2 (12:52→21:19)
[2021-08-14 17:02] LABS: Glucose,Whole Blood 444 mg/dL (75-99)
[2021-08-14 20:37] LABS: Glucose,Whole Blood 298 mg/dL (75-99)
[2021-08-14] MEDS: ATORVASTATIN 80 MG TAB PO SCH (21:19)
--- NOTE | 2021-08-15 05:42 | P.CONS ---
History of Present Illness - Chief Complaint Gait ataxia, left hemiparesthesias - History of Present Illness I had the opportunity to see patient for inpatient rehab consultation with regard to gait ataxia. He was admitted to [place] [address] [address] Patel with regard to acute onset left-sided weakness and numbness. Seen by neurology, Dr. Papo Grossman for the stroke. Head CT demonstrates chronic change and old right thalamic infarct. Angiogram CT demonstrates occlusion right and left vertebral arteries. Carotid Doppler with right vertebral unable to find. Brain MRA with small left vert and absent right vert and filling defect basilar artery. Brain MRI with left lateral medula and left cerebellar infarct. Patient started therapy. PT reports minimal assistance for bed mobility and moderate to maximal assist for transfer and gait 40 feet with roller walker. OT reports supervision for feeding, minimal assistance for grooming and upper dressing and moderate assistance for lower dressing, bathing, toileting and functional mobility and transfers. Speech therapy is working on swallow recommends ground and NT liquids. Speech 100% intelligible. Previous functional history as elicited from patient: 61-year-old right-handed white female who is single lives and 2 floor home with girlfriend Kassandra. Girlfriend does the cooking and [employer] driving. Patient independent standing shower and gait without device previously. PCP Dr. Ko. Smokes a pack per day denies alcohol. Review of Systems Review of systems: ENT: Denies sneezes or discharge. Eyes: Denies discharge or photophobia. Cardiac: Denies chest pain or palpitation. Pulmonary: Denies cough or shortness of breath. Gastrointestinal: Denies nausea, emesis, constipation, diarrhea. Genitourinary: Denies discharge or frequency. Musculoskeletal: Denies muscle or bone aches. Neurologic: Left facial numbness. Dizziness when sitting or standing upright. Endocrine: Denies shakes or sweats. Oncology: Denies cancers. Dermatologic: Denies rash, itching, pruritus. ALLERGY/immunology: Denies sneezes, rashes. Past Medical History Past Medical History: Cancer, Diabetes Mellitus, Hypertension, Musculoskeletal Disorder, Prostate Disorder Additional Past Medical History / Comment(s): hx. prostate cancer 2010, herniated discs History of Any Multi-Drug Resistant Organisms: None Reported Past Surgical History: Coronary Bypass/CABG, Heart Catheterization With Stent, Orthopedic Surgery, Prostate Surgery Additional Past Surgical History / Comment(s): R ankle, R elbow x3, B knee arthroscopy, L ear, sinus surg., triple bypass 17 yrs. ago, prostatectomy Past Anesthesia/Blood Transfusion Reactions: Postoperative Nausea & Vomiting (PONV) Date of Last Stent Placement:: 2019 Past Psychological History: No Psychological Hx Reported Smoking Status: Current every day smoker Past Alcohol Use History: None Reported Past Drug Use History: None Reported Medications and Allergies Home Medications Medication Instructions Recorded Confirmed Type Clopidogrel [Plavix] 75 mg PO DAILY 03/07/18 08/10/21 History Metoprolol Succinate (ER) [Toprol 25 mg PO DAILY 03/07/18 08/10/21 History Xl] captopriL [Capoten] 25 mg PO BID 03/07/18 08/10/21 History Cyclobenzaprine [Flexeril] 10 mg PO DAILY PRN 08/10/21 08/10/21 History Empagliflozin/Linagliptin 1 tab PO DAILY 08/10/21 08/10/21 History [Glyxambi 10 mg-5 mg Tablet] Pantoprazole [Protonix] 40 mg PO DAILY 08/10/21 08/10/21 History Apixaban [Eliquis] 5 mg PO BID #60 tab 08/14/21 Rx Allergies Allergy/AdvReac Type Severity Reaction Status Date / Time amoxicillin Allergy Unknown Rash/Hives Verified 08/10/21 12:10 Physical Exam Vitals: Vital Signs Temp Pulse Resp BP BP Pulse Ox 08/15/21 03:27 98.0 F 60 16 136/63 94 L 08/14/21 23:26 98.2 F 60 16 129/70 96 08/14/21 19:59 98.1 F 76 18 143/78 96 08/14/21 16:00 72 18 140/72 96 08/14/21 12:00 65 18 131/77 98 08/14/21 11:40 96 08/14/21 08:00 98.2 F 64 18 161/79 98 Intake and Output 08/14/21 08/14/21 08/15/21 14:59 22:59 06:59 Intake Total 600 360 Output Total 250 2024 Balance 350 -1665 Intake: Oral 600 360 Output: Urine 250 2024 Skin: Good color, texture, turgor. General: Medium build and comfortable appearance. Head: Normocephalic, atraumatic. Eyes: Symmetric. Pupils equal round. Ears: Symmetric. Hearing within normal limits. Mouth: Clear. Neck: Supple. Carotid without bruit. Cardiac: Regular rate and rhythm. Lungs: Clear anteriorly and posteriorly. Abdomen: Soft active nontender. Extremities: Normal tone. Neurological: Mental status: Alert, cooperative, pleasant. Cranial nerves: Symmetric facial tone and trapezius. Cerebellar: Mild ataxia left arm more than leg. Motor: Normal strength and isolation all 4 limbs. Mild weakness left hand. Sensation: Intact throughout. DTRs: Symmetric and equal throughout. Mobility: Sits with minimal assistance. Results CBC & Chem 7: 08/13/21 03:59 08/14/21 05:30 Labs: Abnormal Lab Results - Last 24 Hours (Table) 08/14/21 08/14/21 08/14/21 Range/Units 05:30 05:30 06:12 APTT 42.8 H (22.0-30.0) sec Sodium 135 L (137-145) mmol/L Glucose 228 H (74-99) mg/dL POC Glucose (mg/dL) 218 H (75-99) mg/dL 08/14/21 08/14/21 08/14/21 Range/Units 11:47 16:59 20:35 APTT (22.0-30.0) sec Sodium (137-145) mmol/L Glucose (74-99) mg/dL POC Glucose (mg/dL) 148 H 444 H 298 H (75-99) mg/dL Assessment and Plan (1) Cerebrovascular accident (CVA) Current Visit: Yes Status: Acute Code(s): I63.9 - CEREBRAL INFARCTION, UNSPECIFIED SNOMED Code(s): 526874461 Plan: Comments and plan: Patient has gait disturbance/ataxia with left hemiparesthesias related to left cerebellar stroke. Patient complains of dizziness with sitting or standing upright. At this time safety concerns noted. Patient demonstrated the ability tolerate and benefit from therapies and would benefit from full inpatient rehab at this time. This was discussed with patient and he is agreeable. Discussed estimate length they have the rehab unit 2-3 weeks.
[2021-08-15 06:47] LABS: Glucose,Whole Blood 127 mg/dL (75-99)
[2021-08-15] MEDS: INSULIN ASPART (NovoLOG) 100 UNIT/ML VIAL SQ SCH ×7 (06:52→20:40)
[2021-08-15] MEDS: LINAGLIPTIN 5 MG TABLET PO SCH (08:52)
[2021-08-15] MEDS: PANTOPRAZOLE 40 MG TABLET PO SCH (08:52)
[2021-08-15] MEDS: METOPROLOL SUCCINATE (ER) 25 MG TAB.ER.24H PO SCH (08:52)
[2021-08-15] MEDS: chlorproMAZINE 25 MG TAB PO SCH ×3 (08:52→20:40)
[2021-08-15] MEDS: INSULIN DETEMIR (LEVEMIR) 100 UNIT/ML SYR SQ SCH ×2 (08:53→20:40)
[2021-08-15] MEDS: ASPIRIN 81 MG PO SCH (08:53)
[2021-08-15] MEDS: APIXABAN 5 MG TAB PO SCH ×2 (08:53→20:40)
--- NOTE | 2021-08-15 11:09 | P.PN ---
Subjective Progress Note Date: 08/14/21 08/14/2021: Patient is doing even further better. Patient states that he gets dizzy when he gets up. Otherwise he is not as dizzy. The left side of the face still is numb. His hiccups are persistent although better. Denies any headache. Yesterday patient was able to walk with the therapist to the [facility]. He is able to sit on the side of the bed. His speech has improved. Swallowing is also getting better. Patient is being considered for inpatient rehab. Patient is able to tolerate nectar thick diet and the food has to be ground. He is able to cough better. No worsening of neurological symptoms. No new neuro symptoms. 08/13/2021: Patient was seen for a follow-up. Patient's significant other was also present. Patient is overall better. Patient's hiccups have improved with Thorazine 25 mg 3 times a day. Patient states that he is noticing some diplopia,, gets dizzy and then get headache. Patient had a headache earlier /10 but now is improved 3/10. His speech has improved, still with some dysphagia. Patient is less wobbly while walking with assistance. No new neurological symptoms. Telemetry monitoring showing sinus rhythm, sinus bradycardia. 08/12/2021: Patient was seen for a follow-up. Patient's significant other was also present. Patient states he is feeling worse. No better for sure. Feels very dizzy. Sometimes gets double vision. Patient's hiccups are getting worse. Speech therapist was also present, who has failed that patient's swallowing has got worse and now she has downgraded him to nectar thick. 08/11/2021: Patient initially seen by Dr. Papo Grossman yesterday. Please refer to his note for details. Patient admitted to the hospital yesterday 08/10/2021 marker maker at 2:34 AM. Patient tells me that his symptoms started on , 08/07/2021, 3 days prior to arrival when he started feeling dizzy and threw up. On Wednesday he went to urgent care and was felt he may have some vestibular dysfunction possibly viral. Since then he has been getting worse. Patient developed numbness of left side of the face, his balance was off, couldn 't walk, had no control of the left side. Denies any weakness however. No numbness or tingling in the upper or lower extremities. Patient was not a candidate for TPA as he came outside the window for TPA. Patient's significant other was also present, who also provided with the above mentioned history. Patient has history of diabetes for 20 years, hypertension. Patient has smoked 1 pack per day for 45 years, out of which he did quit for 10 years, therefore in general 35 pack years of smoking tobacco. Patient had been on dual antiplatelet medications including aspirin 81 mg and Plavix 75 mg. Objective - Vital Signs Vital signs: Vital Signs Temp 98.2 F 08/14/21 08:00 Pulse 64 08/14/21 08:00 Resp 18 08/14/21 08:00 BP 161/79 08/14/21 08:00 Pulse Ox 96 08/14/21 11:40 Intake & Output 08/13/21 08/14/21 08/14/21 18:59 06:59 18:59 Intake Total 360 511.223 360 Output Total 350 3225 Balance 10 -5833.777 360 Intake: Intake, IV Titration 151.223 Amount Heparin Sod,Pork in 0.45% 151.223 NaCl 25,000 unit In 0.45 % NaCl 1 250ml.bag @ 12 UNITS/KG/HR 8.981 mls/hr IV .Q24H [facility] Rx#: [id number] Oral 360 360 360 Output: Urine 350 3225 Other: Voiding Method Urinal # Voids 0 - Exam Patient is a middle aged male, in no acute distress. Patient is still frequently hiccuping. Patient is more alert and awake oriented to time place and person. Speech is mildly hoarse, with mild dysarthria and language functions are normal. Patient can name and repeat very well. Attention, concentration and fund of knowledge is adequate. On cranial examination, patient has mild right ptosis. No definite anisocoria. His pupils are equal, round and reacting to light, visual anderson are full on confrontation, extraocular muscles are intact with nonsustained, coarse nystagmus on the left gaze. Face is symmetric, tongue protrudes to the midline. Palatal elevation appears slightly low on the left and sensation normal, hearing and shoulder shrug normal, facial sensation decreased for touch on the left. Shoulder shrug normal. On muscle strength testing, there is no pronator drift and the strength is normal in arms and legs distally and proximally. Deep tendon reflexes are (right/left) biceps 1+/1, brachioradialis 2/1, knee 1+/1+, ankles 0/0 and plantar is up on the right, down on the left. Sensory to light touch is equal in the upper and lower limbs with no neglect on double simultaneous stimulation. Sensory to temperature decreased in the right arm and leg, as compared to the left side. Cerebellar function reveals severe ataxia for [id number] and [id number] testing on the left side. No ataxia on the right side. Gait not checked. On general examination, there is no carotid bruit or murmur, S1-S2 audible. Abdomen is soft nontender. Chest is clear. Peripheral pulses are present. No edema. 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 MRI of the brain revealed an acute stroke in the left lateral medullary region as well as left cerebellar hemisphere. CTA of the head showed possibility of occlusion versus thrombus/clot in the right vertebral artery. No definitive evidence of dissection. Dysphagia, diplopia, nystagmus, hiccups due to above. Uncontrolled hypertension. History of coronary artery disease status post stent Status post CABG History of hypertension Diabetes mellitus, uncontrolled. Patient stated that he is noncompliance because of financial reason. Tobacco use Plan: * Patient has clinically improved. Patient will be continued on heparin. Patient's PTT is therapeutic 42.8. May start Coumadin from tomorrow (versus newer agent). * MRI of the brain revealed acute ischemia left lateral margin of the Medulla, and in the left cerebellar hemisphere. Patient has Wallenberg syndrome. I personally reviewed MRI of the brain and agree with the findings. * MRA of the head and neck showed suboptimal study in evaluating vertebral arteries. Patent right vertebral artery is not identified, correlating with recent CTA and ultrasound images. Occluded distal portion is seen on recent CT. Portion of patent small-caliber left vertebral artery is identified correlating with CTA but this become stenotic or occluded distally seen better on CT. Some filling of the basilar artery is presumed related to retrograde flow. No significant stenosis or aneurysm in the common or internal carotid arteries or the anterior circulation. I discussed MRI, MRA and CTA images with Dr. Foley. Concerned about presence of a thrombus in the right vertebral artery. * Patient has failed combination of Plavix and aspirin, and his symptoms pr ogressed while being on aspirin and Brilinta. Patient now on full anticoagulation. Also on low-dose aspirin. * CT angiography of the head and neck is reported as subtotal occlusion of both vertebral arteries. Posterior cerebral arteries appear to be filling through the right posterior communicating artery. No significant intercranial and angiographic abnormality. Mild plaque formation at the origin of the internal carotid artery without hemodynamic stenosis at. * 2-D echo revealed normal left-ventricular size. Borderline concentric LVH. EF is between 60-65%. No pericardial effusion. Left atrial size is normal.. * Lipid panel cholesterol 197, LDL 127, HDL 45, triglycerides 121. Continue Lipitor 80 mg. * Hemoglobin A1c 11.6. Optimize control of diabetes to target A1c <7.0. * PT, OT and [employer] are consulted. Patient's swallow has got worse, now on nectar thick diet. * Continue neuro checks * On cardiac monitoring. Telemetry monitoring showing sinus rhythm, sinus bradycardia in the 57. * Patient was counseled on tobacco cessation. * Consult physical medicine and rehab. * Observed for 1 more day.
[2021-08-15 11:55] LABS: Glucose,Whole Blood 201 mg/dL (75-99)
--- NOTE | 2021-08-15 14:01 | P.PN ---
Subjective Progress Note Date: 08/15/21 61-year-old gentleman with history of diabetes, hypertension, prostate cancer in 2010, coronary artery disease status stent and post CABG who presented emergency department on at 22,022 for left-sided weakness and numbness. Patient stated that the on he was having nausea vomiting and dizziness and he went to urgent care and he was told he has vertigo. And then yesterday he said possibly 7:00 he noticed the he is having left-sided numbness and weakness over the left side predominantly left lower extremity and worsening. He denies any history of stroke in the past or TIAs. He stated that he takes aspirin 81 mg and Plavix 75 mg daily because of his heart condition and he is compliant taking them is not compliant taking diabetic medication because of financial reason that. Blood work revealed Sodium is 129, initial POC glucose is 456 otherwise rest of the Chem-7 is unremarkable. AST and 18 is within normal limits CT of the head reveals hypodensity consistent with chronic small vessel ischemia or demyelinating disease without change compared to old exam. No acute abnormality. Old lacunar infarct in the right thalamus. CT angiography of the head and neck is reported as subtotal occlusion of both vertebral arteries. Posterior cerebral arteries appear to be filling through the right posterior communicating artery. No significant intercranial and angiographic abnormality. Mild plaque formation at the origin of the internal carotid artery without hemodynamic stenosis at. 08/11/2021 Patient today resting bed. He states that he was up all night long having 73 days. Still complaining of some left-sided facial numbness and droop, denies any focal weakness in the left side today. A1c 11.6. Patient blood sugar 440 yesterday evening was started on insulin drip, blood sugars continue to be into the 300s today. Patient would like to be off the insulin drip and we can try and transition him. Sodium is improved to 133. TSH 0.200 however free T4 is 1.14. Patient echo pending and will undergo MRI later on today. Neurology following the patient closely. 08/12/2021 Patient evaluated today resting in bed after his MRI. MRI shows acute ischemia left lateral margin of medulla and left cerebral hemisphere as well as tiny focus of abnormal signal involving the jazmin suggestive of tiny remote infarct. Neurology has started patient on IV heparin, continues on brilenta and aspirin. Continue with neuro checks. Speech evaluation today shows worsening dysarthria with recurrent hiccuping which was also observed. Patient is on nectar thick liquids, no straws and aspiration precaution. Sodium today 132, potassium 4.6, chloride 96, CO2 29. Blood glucose elevated at 274. Added Levemir this morning, continue with levemir at bedtime as well as sliding scale plus scheduled insulin. Echocardiogram shows an EF of 60 to 65% with no pericardial effusion. 08/13/2021 Patient evaluated today resting in bed. Neurologically has improved since yesterday, Speech has improved. Hiccups have also improved on chlropromazine. Still concerns with dysphasia and ongoing speech evaluation. Patient to undergo modified barium swallow. Sodium 131, potassium 4.4, blood glucose continues to be elevated in the 250s. Levemir was increased. Continue to hydrate with IV fluids. Patient will continue on IV heparin, brilenta stopped, will transition to oral anticoagulation tomorrow. Blood pressure improved 136/58, percent room air. Long discussion at bedside with patient and family regarding lifestyle modifications and risk factors for stroke. 08/14/2021 Patient evaluated today resting in bed with family at the bedside. Speech is further improved today. Patient currently denies pain, shortness of breath. Modified barium shows penetration with nectar thick liquids and occasional penetration with honey thick. Continues on ground diet with honey thick liquids 1:1 supervision, no straws and aspiration precautions. Patient will be switched to eliquis and aspirin 81 mg today. Blood sugars have improved currently 218, and 148. May need to decrease HS dose of levemir as he was running in the 300s yesterday to avoid hypoglycemia. Cholesterol panel completed triglycerides 121, total cholesterol 197, LDL 127, HDL 45. Folate and B12 within normal limits. Sodium today 135. Continues on gentle hydration at 50 ml per hour and continue to encourage oral intake. PT/OT on, encourage patient to sit up in chair. Has not gotten out of bed. Afebrile, blood pressure 161/79. Home with vs Inpatient rehab, will consult Dr Javier for evaluation. 08/15/2021 Patient is seen and evaluated today with family at the bedside. Patient being followed by neurology closely and also has been evaluated by Dr. Javier from [facility] and is being considered for [facility] inpatient rehab status post CVA. Patient has been evaluated by speech and will continue on ground diet with honey thickened liquids and continued supervision with meals and aspiration precautions of head of the bed elevated 30-45 at all times in no straws. Patient continues with dizziness very minimal position changes and when asking to move frequently he becomes more dizzy. Patient continues with weakness and physical therapy evaluating daily. Recommend continue with PT/OT daily. Review of Systems Constitutional: Reports fatigue. Reports recurrent hiccuping. denied any fever. Cardio vascular: denied any chest pain, palpitations Gastrointestinal: denied any nausea, vomiting, diarrhea Pulmonary: Denied any shortness of breath cough Neurologic: Denies new focal deficits, reports continued facial numbness and continued dizziness with position changes and moving quickly Active Medications Acetaminophen (Acetaminophen Tab 325 Mg Tab) 325 mg PO Q6HR PRN PRN Reason: Fever Last Admin: 08/13/21 13:03 Dose: 325 mg Documented by: Hydrocodone Bitart/Acetaminophen (Hydrocodone/Apap 5-325mg 1 Each Tab) 1 each PO Q6HR PRN PRN Reason: Pain Last Admin: 08/12/21 14:57 Dose: 1 each Documented by: Apixaban (Apixaban 5 Mg Tab) 5 mg PO BID [facility]; Protocol Last Admin: 08/15/21 08:53 Dose: 5 mg Documented by: Aspirin (Aspirin 81 Mg) 81 mg PO DAILY [facility] Last Admin: 08/15/21 08:53 Dose: 81 mg Documented by: Atorvastatin Calcium (Atorvastatin 80 Mg Tab) 80 mg PO HS [facility] Last Admin: 08/14/21 21:19 Dose: Not Given Documented by: Captopril (Captopril 25 Mg Tab) 25 mg PO BID [facility] Last Admin: 08/15/21 08:52 Dose: 25 mg Documented by: Chlorpromazine HCl (Chlorpromazine 25 Mg Tab) 25 mg PO TID [facility] Last Admin: 08/15/21 08:52 Dose: 25 mg Documented by: Cyclobenzaprine HCl (Cyclobenzaprine 10 Mg Tab) 10 mg PO DAILY PRN PRN Reason: Muscle Spasm Last Admin: 08/13/21 23:06 Dose: 10 mg Documented by: Sodium Chloride (Saline 0.9%) 1,000 mls @ 50 mls/hr IV .Q20H [facility] Last Admin: 08/14/21 21:43 Dose: 50 mls/hr Documented by: Insulin Aspart (Insulin Aspart (Novolog) 100 Unit/Ml Vial) 0 unit SQ ACHS [facility]; Protocol Last Admin: 08/15/21 06:52 Dose: Not Given Documented by: Insulin Aspart (Insulin Aspart (Novolog) 100 Unit/Ml Vial) 8 unit SQ AC-TID [facility] Last Admin: 08/15/21 08:52 Dose: 8 unit Documented by: Insulin Detemir (Insulin Detemir (Levemir) 100 Unit/Ml Syr) 40 unit SQ HS [facility] Last Admin: 08/14/21 21:20 Dose: 40 unit Documented by: Insulin Detemir (Insulin Detemir (Levemir) 100 Unit/Ml Syr) 20 unit SQ DAILY@ 0700 [facility] Last Admin: 08/15/21 08:53 Dose: 20 unit Documented by: Linagliptin (Linagliptin 5 Mg Tablet) 5 mg PO DAILY [facility] Last Admin: 08/15/21 08:52 Dose: 5 mg Documented by: Lorazepam (Lorazepam 2 Mg/Ml Inj) 1 mg IV ONCE PRN PRN Reason: for mri Lorazepam (Lorazepam 2 Mg/Ml Inj) 0.5 mg IV ONCE PRN PRN Reason: for MRI Metoprolol Succinate (Metoprolol Succinate (Er) 25 Mg Tab.Er.24h) 25 mg PO DAILY [facility] Last Admin: 08/15/21 08:52 Dose: 25 mg Documented by: Naloxone HCl (Naloxone 0.4 Mg/Ml 1 Ml Vial) 0.2 mg IV Q2M PRN PRN Reason: Opioid Reversal Pantoprazole Sodium (Pantoprazole 40 Mg Tablet) 40 mg PO DAILY [facility] Last Admin: 08/15/21 08:52 Dose: 40 mg Documented by: PHYSICAL EXAMINATION: GENERAL: The patient is alert and oriented x3 Well developed, well nourished. D herrera HEENT: Pupils are round and equally reacting to light. EOMI. No scleral icterus. No conjunctival pallor. Normocephalic, atraumatic. No pharyngeal erythema. No thyromegaly. CARDIOVASCULAR: S1 and S2 muffled PULMONARY: Diminished breath sounds bilaterally with some scattered rhonchi noted ABDOMEN: Soft, nontender, nondistended, normoactive bowel sounds. No palpable organomegaly. MUSCULOSKELETAL: No joint swelling or deformity. EXTREMITIES: No cyanosis, clubbing, or pedal edema. NEUROLOGICAL: Continues with left facial droop, dysarthria and hiccuping, nystagmus also noted. SKIN: No rashes. Assessment: Acute ischemic stroke with left facial droop and facial numbness with MRI positive for acute stroke left lateral medulla, left ceribellar hemisphere. Possible occlusion versus thrombus/clot right vertebral artery with out evidence for dissection. Progression of symptoms while on dual antiplatelet therapy with aspirin and brilenta. Uncontrolled hypertension, probably non-complaint with medications at home Diabetes mellitus type 2 uncontrolled with hyperglycemia, A1C of 11.6 Persistent hiccuping, dysphagia Hyponatremia probably due to poor oral intake, improving Subclinical hyperthyroidism, follow up TSH outpatient, free T4 normal. CAD status post CABG Gastroesophageal reflux disease Daily smoker counseling provided Occasional marijuana use DVT prophylaxis GI prophylaxis No code Plan: Continue current cardiac medications Monitor blood pressure Continue eliquis Monitor blood sugars closely with Accu-Cheks before meals and at bedtime and as needed and continue with sliding scale along with long-acting Recommend to continue with aspiration precautions and head of the bed elevated 30-45 at all times, honey thickened liquids and no straws with dysphasia ground diet Continue all other supportive care Ongoing speech therapy PT/OT Discharge planning - home with homecare vs. IP rehab, Dr. Javier from [facility] inpatient rehab evaluated the patient and awaiting insurance authorization The impression and plan of care has been dictated by Maggie Madsen, Nurse Practitioner as directed. Dr. Jorge MD I have performed a history and physical examination and medical decision making of this patient, discussed the same with the dictator, and agree with the dictators assessment and plan as written, documented as a scribe. Based on total visit time, I have performed more than 50% of this visit. Objective - Vital Signs Vital signs: Vital Signs Temp 98.0 F 08/15/21 03:27 Pulse 60 08/15/21 03:27 Resp 16 08/15/21 03:27 BP 136/63 08/15/21 03:27 Pulse Ox 94 L 08/15/21 03:27 Intake & Output 08/14/21 08/15/21 08/15/21 18:59 06:59 18:59 Intake Total 960 Output Total 925 1350 Balance 35 -1350 Intake: Oral 960 Output: Urine 925 1350 - Labs CBC & Chem 7: 08/13/21 03:59 08/14/21 05:30 Labs: Abnormal Lab Results - Last 24 Hours (Table) 08/14/21 08/14/21 08/14/21 Range/Units 11:47 16:59 20:35 POC Glucose (mg/dL) 148 H 444 H 298 H (75-99) mg/dL 08/15/21 Range/Units 06:46 POC Glucose (mg/dL) 127 H (75-99) mg/dL
[2021-08-15 16:23] LABS: Glucose,Whole Blood 246 mg/dL (75-99)
--- NOTE | 2021-08-15 16:48 | P.PN ---
Subjective Progress Note Date: 08/15/21 08/15/2021: Patient's was also present. Patient denies any headache. Continues to have very frequent hiccups. Patient states that whenever he moves, gets dizzy with some nausea but no vomiting. Patient yesterday walked with physical therapy to the bathroom. He was using a walker with some assist. He still has issues with the swallowing, although slightly better. No new worsening. 08/14/2021: Patient is doing even further better. Patient states that he gets dizzy when he gets up. Otherwise he is not as dizzy. The left side of the face still is numb. His hiccups are persistent although better. Denies any headache. Yesterday patient was able to walk with the therapist to the [facility]. He is able to sit on the side of the bed. His speech has improved. Swallowing is also getting better. Patient is being considered for inpatient rehab. Patient is able to tolerate nectar thick diet and the food has to be ground. He is able to cough better. No worsening of neurological symptoms. No new neuro symptoms. 08/13/2021: Patient was seen for a follow-up. Patient's significant other was also present. Patient is overall better. Patient's hiccups have improved with Thorazine 25 mg 3 times a day. Patient states that he is noticing some diplopia,, gets dizzy and then get headache. Patient had a headache earlier 5/10 but now is improved 3/10. His speech has improved, still with some dysphagia. Patient is less wobbly while walking with assistance. No new neurological symptoms. Telemetry monitoring showing sinus rhythm, sinus bradycardia. 08/12/2021: Patient was seen for a follow-up. Patient's significant other was also present. Patient states he is feeling worse. No better for sure. Feels very dizzy. Sometimes gets double vision. Patient's hiccups are getting worse. Speech therapist was also present, who has failed that patient's swallowing has got worse and now she has downgraded him to nectar thick. 08/11/2021: Patient initially seen by Dr. Papo Grossman yesterday. Please refer to his note for details. 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 Patient tells me that his symptoms started on , 08/07/2021, 3 days prior to arrival when he started feeling dizzy and threw up. On Wednesday he went to urgent care and was felt he may have some vestibular dysfunction possibly viral. Since then he has been getting worse. Patient developed numbness of left side of the face, his balance was off, couldn't walk, had no control of the left side. Denies any weakness however. No numbness or tingling in the upper or lower extremities. Patient was not a candidate for TPA as he came outside the window for TPA. Patient's significant other was also present, who also provided with the above mentioned history. Patient has history of diabetes for 20 years, hypertension. Patient has smoked 1 pack per day for 45 years, out of which he did quit for 10 years, therefore in general 35 pack years of smoking tobacco. Patient had been on dual antiplatelet medications including aspirin 81 mg and Plavix 75 mg. Objective - Vital Signs Vital signs: Vital Signs Temp 98.1 F 08/15/21 08:00 Pulse 66 08/15/21 08:00 Resp 18 08/15/21 08:00 BP 147/81 08/15/21 08:00 Pulse Ox 98 08/15/21 08:00 Intake & Output 08/14/21 08/15/21 08/15/21 18:59 06:59 18:59 Intake Total 960 240 Output Total 925 1350 525 Balance 35 -1350 -285 Intake: Oral 960 240 Output: Urine 925 1350 525 - Exam Patient is a middle aged male, in no acute distress. Patient is still frequently hiccuping. Appears worse as compared to yesterday. Patient is more alert and awake oriented to time place and person. Speech is mildly hoarse, with mild dysarthria and language functions are normal. Patient can name and repeat very well. Attention, concentration and fund of knowledge is adequate. On cranial examination, patient has mild right ptosis, appears slightly smaller left pupil, very questionable. His pupils are round and reacting to light, visual anderson are full on confrontation, extraocular muscles are intact with nonsustained, coarse nystagmus on the left gaze. Face is symmetric, tongue protrudes to the midline. Palatal elevation appears slightly low on the left and sensation normal, hearing and shoulder shrug normal, facial sensation decreased for touch on the left. However it is normal for temperature sensation on both sides. Shoulder shrug normal. On muscle strength testing, there is no pronator drift and the strength is normal in arms and legs distally and proximally. Deep tendon reflexes are (right/left) biceps 1+/1, brachioradialis 2/1, knee 1+/1+, ankles 0/0 and plantar is up on the right, down on the left. Sensory to light touch is equal in the upper and lower limbs with no neglect on double simultaneous stimulation. Sensory to temperature decreased in the right arm and leg, as compared to the left side. Cerebellar function reveals severe ataxia for [id number] and [id number] testing on the left side. No ataxia on the right side. Gait not checked. On general examination, there is no carotid bruit or murmur, S1-S2 audible. Abdomen is soft nontender. Chest is clear. Peripheral pulses are present. No edema. 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 MRI of the brain revealed an acute stroke in the left lateral medullary region as well as left cerebellar hemisphere. CTA of the head showed possibility of occlusion versus thrombus/clot in the right vertebral artery. No definitive evidence of dissection. Dysphagia, diplopia, nystagmus, hiccups due to above. Uncontrolled hypertension. History of coronary artery disease status post stent Status post CABG History of hypertension Diabetes mellitus, uncontrolled. Patient stated that he is noncompliance because of financial reason. Tobacco use Plan: * Patient has clinically improved. Patient started on Eliquis 5 mg bd and ASA 81 mg daily. * Try baclofen for severe hiccups. Patient has failed Thorazine. Another option is Reglan. * MRI of the brain revealed acute ischemia left lateral margin of the Medulla, and in the left cerebellar hemisphere. Patient has Wallenberg syndrome. I personally reviewed MRI of the brain and agree with the findings. * MRA of the head and neck showed suboptimal study in evaluating vertebral arteries. Patent right vertebral artery is not identified, correlating with recent CTA and ultrasound images. Occluded distal portion is seen on recent CT. Portion of patent small-caliber left vertebral artery is identified correlating with CTA but this become stenotic or occluded distally seen better on CT. Some filling of the basilar artery is presumed related to retrograde flow. No significant stenosis or aneurysm in the common or internal carotid arteries or the anterior circulation. I discussed MRI, MRA and CTA images with Dr. Foley. Concerned about presence of a thrombus in the right vertebral artery. * Patient has failed combination of Plavix and aspirin, and his symptoms progressed while being on aspirin and Brilinta. Patient now on full anticoagulation. Also on low-dose aspirin. * CT angiography of the head and neck is reported as subtotal occlusion of both vertebral arteries. Posterior cerebral arteries appear to be filling through the right posterior communicating artery. No significant intercranial and angiographic abnormality. Mild plaque formation at the origin of the internal carotid artery without hemodynamic stenosis at. * 2-D echo revealed normal left-ventricular size. Borderline concentric LVH. EF is between 60-65%. No pericardial effusion. Left atrial size is normal.. * Lipid panel cholesterol 197, LDL 127, HDL 45, triglycerides 121. Continue Lipitor 80 mg. * Hemoglobin A1c 11.6. Optimize control of diabetes to target A1c <7.0. * PT, OT and SE[facility] are consulted. Patient's swallow has got worse, now on nectar thick diet. * Continue neuro checks * On cardiac monitoring. Telemetry monitoring showing sinus rhythm, sinus bradycardia in the 57. * Patient was counseled on tobacco cessation. * Physical medicine and rehab consult appreciated, patient will benefit from inpatient rehab. Await insurance authorization.
[2021-08-15 20:32] LABS: Glucose,Whole Blood 297 mg/dL (75-99)
[2021-08-15] MEDS: ATORVASTATIN 80 MG TAB PO SCH (20:32)
[2021-08-15] MEDS: SODIUM CHLORIDE 0.9% 1,000 ML IV SCH (20:41)
--- NOTE | 2021-08-15 20:41 | CT ---
EXAMINATION TYPE: CT brain wo con CT DLP: 1189.4 mGycm, Automated exposure control for dose reduction was used. DATE OF EXAM: 08/15/2021 7:46 PM COMPARISON: MR angiogram 08/12/2021 CLINICAL INDICATION:Male, 61 years old with history of Follow-up CVA., TECHNIQUE: Brain: Multiple axial CT images of the brain were obtained without IV contrast. FINDINGS: Brain: Extra-axial spaces: No abnormal extra-axial fluid collections. Ventricular system: Within normal limits Cerebral parenchyma: Right remote injury to the right frontal lobe. No acute intraparenchymal hemorrh age or mass effect. The carter-white junction is well differentiated. Scattered hypoattenuating areas are seen within the white matter. Cerebellum: Redemonstration of infarcts involving the left cerebellar hemisphere and left inferior pe duncle with extension into the medulla oblongata on the left posterior aspect. No evidence of hemorrh agic conversion. Mass effect: No evidence of midline shift. Intracranial vasculature: Atherosclerotic calcifications of the intracranial vessels. Soft tissues: Normal. Calvarium/osseous structures: No depressed skull fracture. Paranasal sinuses and mastoid air cells: Mild scattered paranasal sinus disease. Visualized orbits: Orbital contents are intact.. IMPRESSION: 1. Redemonstration of acute/subacute CVA of the left cerebellar hemisphere with extension to the left inferior peduncle and left posterior lateral medulla oblongata. No evidence of hemorrhagic conversio n. 2. Subacute to chronic area of ischemia within the right frontal white matter 3. Nonspecific white matter changes likely secondary to chronic microangiopathy.
[2021-08-15] MEDS: BACLOFEN 10 MG TAB PO PRN (22:02)
[2021-08-16 07:04] LABS: Glucose,Whole Blood 174 mg/dL (75-99)
[2021-08-16] MEDS: INSULIN ASPART (NovoLOG) 100 UNIT/ML VIAL SQ SCH ×7 (07:05→21:05)
[2021-08-16] MEDS: INSULIN DETEMIR (LEVEMIR) 100 UNIT/ML SYR SQ SCH ×2 (07:05→21:05)
[2021-08-16] MEDS: chlorproMAZINE 25 MG TAB PO SCH ×3 (09:44→21:05)
[2021-08-16] MEDS: LINAGLIPTIN 5 MG TABLET PO SCH (09:44)
[2021-08-16] MEDS: ASPIRIN 81 MG PO SCH (09:44)
[2021-08-16] MEDS: METOPROLOL SUCCINATE (ER) 25 MG TAB.ER.24H PO SCH (09:44)
[2021-08-16] MEDS: APIXABAN 5 MG TAB PO SCH (09:44)
[2021-08-16] MEDS: PANTOPRAZOLE 40 MG TABLET PO SCH (09:44)
[2021-08-16] MEDS: BACLOFEN 10 MG TAB PO PRN ×3 (09:44→23:21)
[2021-08-16 11:41] LABS: African American GFR (CKD) >90 (>60 ml/min/1.73 sqM); Anion Gap 7 mmol/L; Blood Urea Nitrogen 15 mg/dL (9-20); Carbon Dioxide 32 mmol/L (22-30); Chloride 94 mmol/L (98-107); Glucose 320 mg/dL (74-99); Non-African American GFR(CKD) >90 (>60 ml/min/1.73 sqM); Potassium 4.4 mmol/L (3.5-5.1); Sodium 133 mmol/L (137-145)
[2021-08-16 11:56] LABS: Glucose,Whole Blood 331 mg/dL (75-99)
[2021-08-16 12:20] LABS: Basophils # (A) 0.1 k/uL (0-0.2); Basophils % (A) 1 %; Eosinophils # (A) 0.2 k/uL (0-0.7); Eosinophils % (A) 2 %; HCT 54.1 % (39.0-53.0); HGB 17.3 gm/dL (13.0-17.5); Lymphocytes # (A) 1.5 k/uL (1.0-4.8); Lymphocytes % (A) 15 %; MCH 29.4 pg (25.0-35.0); MCHC 32.1 g/dL (31.0-37.0); Mean Platelet Volume 6.9; Monocytes # (A) 0.8 k/uL (0-1.0); Monocytes % (A) 8 %; Neutrophils % (A) 72 %; Platelet Count 219 k/uL (150-450); RDW 13.6 % (11.5-15.5); WBC 9.8 k/uL (3.8-10.6)
[2021-08-16 12:25] LABS: MCV 91.7 fL (80.0-100.0)
[2021-08-16] MEDS: SODIUM CHLORIDE 0.9% 1,000 ML IV SCH (12:56)
--- NOTE | 2021-08-16 14:55 | PN ---
PROGRESS NOTE DATE OF SERVICE: 08/16/2021 This 61-year-old gentleman, admitted with significant dizziness as well as features of left lateral medullary syndrome, had significant cerebral infarction. The patient is complaining of dizziness as well as gait. The patient also had difficulty in swallowing. Speech Pathology has recommended modified food. However, the patient has extreme difficulties in swallowing currently, with some cough also. CT repeated showed acute CVA in the left cerebral hemisphere with extension to the left inferior peduncle, left posterolateral medullary origin also. Right frontal white matter ischemia was also noted. Past medical history reviewed. REVIEW OF SYSTEMS: Fourteen-point review of systems negative except as mentioned earlier. MEDICATIONS: Reviewed. They include Eliquis, [place], aspirin. PHYSICAL EXAMINATION: Pulse 64, blood pressure 140/70, respiration 18. HEENT: Conjunctivae normal. Otherwise, nystagmus present. NECK: No jugular venous distention. CARDIOVASCULAR: S1, S2 muffled. RESPIRATION: Breath sounds diminished at the bases. ABDOMEN: Soft. NERVOUS SYSTEM: Significant gait dysfunction as well as nausea and incoordination on the left side. Dysphagia present. LABS: CT scan reviewed personally. Other labs are noted. Sodium 133. ASSESSMENT: 1. 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 2. Dysphagia. 3. Uncontrolled hypertension. 4. Diabetes mellitus, type 2. 5. Hyponatremia. 6. Coronary artery disease, coronary artery bypass grafting. RECOMMENDATIONS AND DISCUSSION: In this 61-year-old gentleman who presented with multiple complex medical issues, I would to recommend continue current medications, continue with the neuro checks. Also follow closely with Neurology. Prognosis extremely guarded because of multiple complex medical issues. Patient needs to be stabilized before sending to inpatient rehab. Monitor blood sugars closely. The prognosis is guarded. I would also increase the dose of Levemir insulin at nighttime to 50 units. Further recommendations to follow. Speech Pathology to reevaluate. Neurology to continue to follow. Neuro checks. MMODL / IJN: [id number] / MTDD
[2021-08-16 16:45] LABS: Glucose,Whole Blood 259 mg/dL (75-99)
[2021-08-16] MEDS: HYDROcodone/APAP 5-325MG 1 EACH TAB PO PRN (16:59)
[2021-08-16 20:29] LABS: Glucose,Whole Blood 226 mg/dL (75-99)
[2021-08-16] MEDS: ATORVASTATIN 80 MG TAB PO SCH (20:58)
[2021-08-16] MEDS: TICAGRELOR 90 MG TAB PO SCH (21:05)
[2021-08-17] MEDS ORDERED: ALPRAZolam 0.25 MG TAB PO STA (00:46)
[2021-08-17 07:01] LABS: Glucose,Whole Blood 103 mg/dL (75-99)
[2021-08-17] MEDS: INSULIN ASPART (NovoLOG) 100 UNIT/ML VIAL SQ SCH ×7 (07:02→21:14)
[2021-08-17] MEDS: INSULIN DETEMIR (LEVEMIR) 100 UNIT/ML SYR SQ SCH ×2 (07:05→21:10)
[2021-08-17 08:24] VITALS: RESP 18
[2021-08-17] MEDS: chlorproMAZINE 25 MG TAB PO SCH (08:27)
[2021-08-17] MEDS: METOPROLOL SUCCINATE (ER) 25 MG TAB.ER.24H PO SCH (08:27)
[2021-08-17] MEDS: BACLOFEN 10 MG TAB PO PRN (08:27)
[2021-08-17] MEDS: ASPIRIN 81 MG PO SCH (08:27)
[2021-08-17] MEDS: TICAGRELOR 90 MG TAB PO SCH ×2 (08:27→21:10)
[2021-08-17] MEDS: PANTOPRAZOLE 40 MG TABLET PO SCH (08:27)
[2021-08-17] MEDS: LINAGLIPTIN 5 MG TABLET PO SCH (08:27)
[2021-08-17] MEDS: HYDROcodone/APAP 5-325MG 1 EACH TAB PO PRN (08:27)
[2021-08-17] MEDS: SODIUM CHLORIDE 0.9% 1,000 ML IV SCH (08:30)
--- NOTE | 2021-08-17 09:11 | P.PN ---
Subjective Progress Note Date: 08/16/21 08/16/2021: Patient's significant other was also present. Patient essentially not changed from yesterday. Still appears to have severe hiccups, appears very tired, fatigued, does not appear very well. Patient says that he has not been moving much. Otherwise he does get dizzy. Denies any headache. Yesterday he did walk to and back from the bathroom with the therapist. Sat in the chair for short while. No new concerns otherwise. 08/15/2021: Patient's was also present. Patient denies any headache. Continues to have very frequent hiccups. Patient states that whenever he moves, gets dizzy with some nausea but no vomiting. Patient yesterday walked with physical therapy to the bathroom. He was using a walker with some assist. He still has issues with the swallowing, although slightly better. No new worsening. 08/14/2021: Patient is doing even further better. Patient states that he gets dizzy when he gets up. Otherwise he is not as dizzy. The left side of the face still is numb. His hiccups are persistent although better. Denies any headache. Yesterday patient was able to walk with the therapist to the bathroom. He is able to sit on the side of the bed. His speech has improved. Swallowing is also getting better. Patient is being considered for inpatient rehab. Patient is able to tolerate nectar thick diet and the food has to be ground. He is able to cough better. No worsening of neurological symptoms. No new neuro symptoms. 08/13/2021: Patient was seen for a follow-up. Patient's significant other was also present. Patient is overall better. Patient's hiccups have improved with Thorazine 25 mg 3 times a day. Patient states that he is noticing some diplopia,, gets dizzy and then get headache. Patient had a headache earlier /10 but now is improved 3/10. His speech has improved, still with some dysphagia. Patient is less wobbly while walking with assistance. No new neurological symptoms. Telemetry monitoring showing sinus rhythm, sinus b radycardia. 08/12/2021: Patient was seen for a follow-up. Patient's significant other was also present. Patient states he is feeling worse. No better for sure. Feels very dizzy. Sometimes gets double vision. Patient's hiccups are getting worse. Speech therapist was also present, who has failed that patient's swallowing has got worse and now she has downgraded him to vish schmitz. 08/11/2021: Patient initially seen by Dr. Papo Grossman yesterday. Please refer to his note for details. 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 Patient tells me that his symptoms started on , 08/07/2021, 3 days prior to arrival when he started feeling dizzy and threw up. On Wednesday he went to urgent care and was felt he may have some vestibular dysfunction possibly viral. Since then he has been getting worse. Patient developed numbness of left side of the face, his balance was off, couldn't walk, had no control of the left side. Denies any weakness however. No numbness or tingling in the upper or lower extremities. Patient was not a candidate for TPA as he came outside the window for TPA. Patient's significant other was also present, who also provided with the above mentioned history. Patient has history of diabetes for 20 years, hypertension. Patient has smoked 1 pack per day for 45 years, out of which he did quit for 10 years, therefore in general 35 pack years of smoking tobacco. Patient had been on dual antiplatelet medications including aspirin 81 mg and Plavix 75 mg. Objective - Vital Signs Vital signs: Vital Signs Temp 98 F 08/16/21 11:51 Pulse 64 08/16/21 11:51 Resp 18 08/16/21 11:51 BP 140/71 08/16/21 11:51 Pulse Ox 97 08/16/21 11:51 Intake & Output 08/15/21 08/16/21 08/16/21 18:59 06:59 18:59 Intake Total 720 118 Output Total 1345 2550 Balance -625 -2550 118 Intake: Oral 720 118 Output: Urine 1345 2550 Other: # Bowel Movements 1 - Exam Patient is a middle aged male, in no acute distress. Patient is still frequently hiccuping. The hiccups are not as forceful as yesterday. Patient is slightly groggy. He is otherwise awake oriented to time place and person. Speech is mildly hoarse, with mild dysarthria and language functions a re normal. Patient can name and repeat very well. Attention, concentration and fund of knowledge is adequate. On cranial examination, patient has mild right ptosis, appears slightly smaller left pupil, very questionable. His pupils are round and reacting to light, visual anderson are full on confrontation, extraocular muscles are intact with nonsustained, coarse nystagmus on the both end gaze. Face is symmetric, tongue protrudes to the midline. Palatal elevation appears slightly low on the left and sensation normal, hearing and shoulder shrug normal, facial sensation decreased for touch on the left. However it is normal for temperature sensation on both sides. Shoulder shrug normal. On muscle strength testing, there is no pronator drift and the strength is normal in arms and legs distally and proximally. Deep tendon reflexes are (right/left) biceps 1+/1, brachioradialis 1+/1+, knee 1+/1+, ankles 0/0 and plantar is up on the right, down on the left. Sensory to light touch is equal in the upper and lower limbs with no neglect on double simultaneous stimulation. Sensory to temperature decreased in the right arm and leg, as compared to the left side. Cerebellar function reveals severe ataxia for dibutv-sw-sodo and ooad-fz-nlow testing on the left side. No ataxia on the right side. Gait not checked. On general examination, there is no carotid bruit or murmur, S1-S2 audible. Abdomen is soft nontender. Chest is clear. Peripheral pulses are present. No edema. 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 MRI of the brain revealed an acute stroke in the left lateral medullary region as well as left cerebellar hemisphere. CTA of the head showed possibility of occlusion versus thrombus/clot in the right vertebral artery. No evidence of dissection. Dysphagia, diplopia, nystagmus, hiccups due to above. Uncontrolled hypertension. History of coronary artery disease status post stent Status post CABG History of hypertension Diabetes mellitus, uncontrolled. Tobacco use Plan: * Patient is not clinically significantly improving. I discussed case with neuro intervention Dr. Laurent. He reviewed the CTA and MRA. He could not see any definitive thrombus although acute occlusion of the right vertebral could be related to the thrombus. He recommended to switch back to Brilinta 90 mg twice a day and aspirin 81 mg. We will stop Eliquis now. He wants to follow up patient as an outpatient. Recommended to inform if symptoms progress, then may need thrombectomy. * Try baclofen for severe hiccups. Patient has failed Thorazine. Another option is Reglan. * MRI of the brain revealed acute ischemia left lateral margin of the Medulla, and in the left cerebellar hemisphere. Patient has Wallenberg syndrome. I personally reviewed MRI of the brain and agree with the findings. * MRA of the head and neck showed suboptimal study in evaluating vertebral arteries. Patent right vertebral artery is not identified, correlating with recent CTA and ultrasound images. Occluded distal portion is seen on recent CT. Portion of patent small-caliber left vertebral artery is identified correlating with CTA but this become stenotic or occluded distally seen better on CT. Some filling of the basilar artery is presumed related to retrograde flow. No significant stenosis or aneurysm in the common or internal carotid arteries or the anterior circulation. I discussed MRI, MRA and CTA images with Dr. Foley. Concerned about presence of a thrombus in the right vertebral artery. * Patient has failed combination of Plavix and aspirin. * CT angiography of the head and neck is reported as subtotal occlusion of both vertebral arteries. Posterior cerebral arteries appear to be filling through the right posterior communicating artery. No significant intercranial and angiographic abnormality. Mild plaque formation at the origin of the internal carotid artery without hemodynamic stenosis at. * 2-D echo revealed normal left-ventricular size. Borderline concentric LVH. EF is between 60-65%. No pericardial effusion. Left atrial size is normal.. * Lipid panel cholesterol 197, LDL 127, HDL 45, triglycerides 121. Continue Lipitor 80 mg. * Hemoglobin A1c 11.6. Optimize control of diabetes to target A1c <7.0. * PT, OT and CASK MAKER are consulted. Patient's swallow has got worse, now on nectar thick diet. * Continue neuro checks * On cardiac monitoring. Telemetry monitoring showing sinus rhythm, sinus bradycardia in the 57. * Patient was counseled on tobacco cessation. * Physical medicine and rehab consult appreciated, patient will benefit from inpatient rehab. Await insurance authorization. Possible transfer on Wednesday.
[2021-08-17] MEDS: METOCLOPRAMIDE 5 MG/ML 2 ML VIAL IVP PRN ×2 (09:37→16:50)
[2021-08-17 09:56] LABS: Glucose,Whole Blood 180 mg/dL (75-99)
[2021-08-17 11:33] LABS: Glucose,Whole Blood 148 mg/dL (75-99)
[2021-08-17 16:50] LABS: Glucose,Whole Blood 175 mg/dL (75-99)
--- NOTE | 2021-08-17 17:41 | PN ---
PROGRESS NOTE DATE OF SERVICE: 08/17/2021 This 61-year-old gentleman who was admitted with significant posterior inferior cerebellar artery stroke also had a significant left infarction. The patient had minimal change in mental status this morning, according to the staff, but currently the patient is much more alert. Slightly drowsy. The patient is significantly ataxic with dizziness; also had some difficulty in swallowing, which is slightly improved today compared to yesterday. The patient is awaiting transfer to inpatient rehab. The most recent CT scan reviewed. Past medical history reviewed. REVIEW OF SYSTEMS: Fourteen-point review of systems negative except as mentioned earlier. CURRENT MEDICATIONS: Reviewed. They include Tylenol, [place]. Doses and other medications are reviewed. See list. PHYSICAL EXAMINATION: Pulse is 79. Blood pressure 156/82, respiration 18. CHEST: Clear to auscultation. CARDIOVASCULAR: S1, S2 normal. ABDOMEN: Soft. NERVOUS SYSTEM: Minimal nystagmus to the left gaze and significant dysarthria, weakness on the left side of the body. Gait is ataxic. LABS: Noted. Accu-Cheks 148. ASSESSMENT: 1. Acute lateral medullary syndrome on the left side with significant cerebellar stroke, extensive. 2. Dysphagia. 3. Gait dysfunction. 4. Uncontrolled hypertension. 5. Diabetes mellitus, type 2. 6. Hyponatremia. 7. Coronary artery disease, coronary artery bypass grafting history. RECOMMENDATIONS AND DISCUSSION: I recommend to continue current medications, continue with the monitoring, symptomatic treatment. Continue with antiplatelet agents. PT/OT evaluation. Repeat labs. Otherwise, possible inpatient rehab. Guarded prognosis. Further recommendations to follow. I would also recommend to avoid any sedatives at this time and closely monitor the neuro checks; any change in mental status might warrant a repeat CT scan to exclude any possibility of progression or any associated complication of cerebellar stroke. Otherwise, closely follow with Neurology. Prognosis guarded. Discussed extensively with the patient and the patient's family at the bedside. MMODL / IJN: [id number] / KELLI
[2021-08-17] MEDS: BACLOFEN 10 MG TAB PO SCH (21:10)
[2021-08-17] MEDS: ATORVASTATIN 80 MG TAB PO SCH (21:10)
[2021-08-17 21:13] LABS: Glucose,Whole Blood 255 mg/dL (75-99)
--- NOTE | 2021-08-18 00:18 | P.PN ---
Subjective Progress Note Date: 08/17/21 08/17/2021: Patient's significant other was also present. Patient is doing somewhat better. His hiccups are not as bad. Not as forceful. He is just slightly lightheaded, no more vertigo. He is eating fine. Patient was able to take couple steps from bed to the recliner and appeared quite steady. He sat up in the chair couple times. Headache is gone. No nausea. 08/16/2021: Patient's significant other was also present. Patient essentially not changed from yesterday. Still appears to have severe hiccups, appears very tired, fatigued, does not appear very well. Patient says that he has not been moving much. Otherwise he does get dizzy. Denies any headache. Yesterday he did walk to and back from the bathroom with the therapist. Sat in the chair for short while. No new concerns otherwise. 08/15/2021: Patient's was also present. Patient denies any headache. Continues to have very frequent hiccups. Patient states that whenever he moves, gets dizzy with some nausea but no vomiting. Patient yesterday walked with physical therapy to the bathroom. He was using a walker with some assist. He still has issues with the swallowing, although slightly better. No new worsening. 08/14/2021: Patient is doing even further better. Patient states that he gets dizzy when he gets up. Otherwise he is not as dizzy. The left side of the face still is numb. His hiccups are persistent although better. Denies any headache. Yesterday patient was able to walk with the therapist to the bathroom. He is able to sit on the side of the bed. His speech has improved. Swallowing is also getting better. Patient is being considered for inpatient rehab. Patient is able to tolerate nectar thick diet and the food has to be ground. He is able to cough better. No worsening of neurological symptoms. No new neuro symptoms. 08/13/2021: Patient was seen for a follow-up. Patient's significant other was also present. Patient is overall better. Patient's hiccups have improved with Thorazine 25 mg 3 times a day. Patient states that he is noticing some diplopia,, gets dizzy and then get headache. Patient had a headache earlier 5/10 but now is improved 3/10. His speech has improved, still with some dysphagia. Patient is less wobbly while walking with assistance. No new ne urological symptoms. Telemetry monitoring showing sinus rhythm, sinus bradycardia. 08/12/2021: Patient was seen for a follow-up. Patient's significant other was also present. Patient states he is feeling worse. No better for sure. Feels very dizzy. Sometimes gets double vision. Patient's hiccups are getting worse. Speech therapist was also present, who has failed that patient's swallowing has got worse and now she has downgraded him to nectar thick. 08/11/2021: Patient initially seen by Dr. Papo Grossman yesterday. Please refer to his note for details. 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 Patient tells me that his symptoms started on , 08/07/2021, 3 days prior to arrival when he started feeling dizzy and threw up. On Wednesday he went to urgent care and was felt he may have some vestibular dysfunction possibly viral. Since then he has been getting worse. Patient developed numbness of left side of the face, his balance was off, couldn't walk, had no control of the left side. Denies any weakness however. No numbness or tingling in the upper or lower extremities. Patient was not a candidate for TPA as he came outside the window for TPA. Patient's significant other was also present, who also provided with the above mentioned history. Patient has history of diabetes for 20 years, hypertension. Patient has smoked 1 pack per day for 45 years, out of which he did quit for 10 years, therefore in general 35 pack years of smoking tobacco. Patient had been on dual antiplatelet medications including aspirin 81 mg [address] avix 75 mg. Objective - Vital Signs Vital signs: Vital Signs Temp 98.0 F 08/17/21 23:20 Pulse 63 08/17/21 23:20 Resp 18 08/17/21 23:20 BP 139/71 08/17/21 23:20 Pulse Ox 95 08/17/21 23:20 Intake & Output 08/17/21 08/17/21 08/18/21 06:59 18:59 06:59 Intake Total 180 Output Total 787 692 0514 Balance -016 -962 -4109 Intake: Oral 180 Output: Urine 400 239 6533 Other: Voiding Method Urinal # Voids 1 - Exam Patient is a middle aged male, in no acute distress. Patient's hiccups have much improved. Patient is slightly groggy. Suspect medication side effect. He is otherwise awake oriented to time place and person. Speech is mildly hoarse, with mild dysarthria and language functions are normal. Patient can name and repeat very well. Attention, concentration and fund of knowledge is adequate. On cranial examination, patient has mild right ptosis, appears slightly smaller left pupil, very questionable. His pupils are round and reacting to light, visual anderson are full on confrontation, extraocular muscles are intact with nonsustained, coarse nystagmus on the both end gaze. Face is symmetric, tongue protrudes to the midline. Palatal elevation appears slightly low on the left and sensation normal, hearing and shoulder shrug normal, facial sensation decreased for touch on the left. However it is normal for temperature sensation on both sides. Shoulder shrug normal. On muscle strength testing, there is no pronator drift and the strength is normal in arms and legs distally and proximally. Deep tendon reflexes are (right/left) biceps 1+/1, brachioradialis 1+/1+, knee 1+/1+, ankles 0/0 and plantar is up on the right, down on the left. Sensory to light touch is equal in the upper and lower limbs with no neglect on double simultaneous stimulation. Sensory to temperature decreased in the right arm and leg, as compared to the left side. Cerebellar function reveals severe ataxia for enmfhl-fb-zqik and qdtr-yl-qlxm testing on the left side. No ataxia on the right side. Gait not checked. On general examination, there is no carotid bruit or murmur, S1-S2 audible. Abdomen is soft nontender. Chest is clear. Peripheral pulses are present. No edema. 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 MRI of the brain revealed an acute stroke in the left lateral medullary region as well as left cerebellar hemisphere. CTA of the head showed possibility of occlusion versus thrombus/clot in the right vertebral artery. No evidence of dissection. Dysphagia, diplopia, nystagmus, hiccups due to above. Uncontrolled hypertension. History of coronary artery disease status post stent Status post CABG History of hypertension Diabetes mellitus, uncontrolled. Tobacco use Plan: * Patient is not clinically significantly improving. I discussed case with neuro intervention Dr. Laurent. He reviewed the CTA and MRA. He could not see any definitive thrombus although acute occlusion of the right vertebral could be related to the thrombus. He recommended to switch back to Brilinta 90 mg twice a day and aspirin 81 mg. We will stop Eliquis now. He wants to follow up patient as an outpatient. Recommended to inform if symptoms progress, then may need thrombectomy. * Patient has failed Thorazine, will stop it. Patient is too much groggy. We will decrease baclofen down to 5 mg twice a day. If the hiccups recur, then Reglan could be tried. * MRI of the brain revealed acute ischemia left lateral margin of the Medulla, and in the left cerebellar hemisphere. Patient has Wallenberg syndrome. I personally reviewed MRI of the brain and agree with the findings. * MRA of the head and neck showed suboptimal study in evaluating vertebral arteries. Patent right vertebral artery is not identified, correlating with recent CTA and ultrasound images. Occluded distal portion is seen on recent CT. Portion of patent small-caliber left vertebral artery is identified correlating with CTA but this become stenotic or occluded distally seen better on CT. Some filling of the basilar artery is presumed related to retrograde flow. No significant stenosis or aneurysm in the common or internal carotid arteries or the anterior circulation. I discussed MRI, MRA and CTA images with Dr. Foley. Concerned about presence of a thrombus in the right vertebral artery. * Patient has failed combination of Plavix and aspirin. * CT angiography of the head and neck is reported as subtotal occlusion of both vertebral arteries. Posterior cerebral arteries appear to be filling through the right posterior communicating artery. No significant intercranial and angiographic abnormality. Mild plaque formation at the origin of the internal carotid artery without hemodynamic stenosis at. * 2-D echo revealed normal left-ventricular size. Borderline concentric LVH. EF is between 60-65%. No pericardial effusion. Left atrial size is normal.. * Lipid panel cholesterol 197, LDL 127, HDL 45, triglycerides 121. Continue Lipitor 80 mg. * Hemoglobin A1c 11.6. Optimize control of diabetes to target A1c <7.0. * PT, OT and DATABASE SECURITY ADMINISTRATOR are consulted. Patient's swallow has got worse, now on nectar thick diet. * Continue neuro checks * On cardiac monitoring. Telemetry monitoring showing sinus rhythm, sinus bradycardia in the 57. * Patient was counseled on tobacco cessation. * Physical medicine and rehab consult appreciated, patient will benefit from inpatient rehab. Await insurance authorization. Possible transfer on Wednesday. * Neurologically clear for transfer to inpatient rehab. Dr. Papo Grossman will be available from the morning, if any concerns.
[2021-08-18] MEDS: HYDROcodone/APAP 5-325MG 1 EACH TAB PO PRN (06:09)
[2021-08-18] MEDS ORDERED: SODIUM CHLORIDE 0.9% 500 ML 500 ML IV ONE (07:00)
[2021-08-18] MEDS: INSULIN ASPART (NovoLOG) 100 UNIT/ML VIAL SQ SCH ×4 (07:05→12:00)
[2021-08-18] MEDS: INSULIN DETEMIR (LEVEMIR) 100 UNIT/ML SYR SQ SCH (07:05)
[2021-08-18 07:09] LABS: Glucose,Whole Blood 185 mg/dL (75-99)
[2021-08-18 07:36] VITALS: BP 145/72; PULSE 72; TEMP 97.9
[2021-08-18 07:43] LABS: Basophils # (A) 0.1 k/uL (0-0.2); Basophils % (A) 1 %; Eosinophils # (A) 0.2 k/uL (0-0.7); Eosinophils % (A) 2 %; Lymphocytes # (A) 1.5 k/uL (1.0-4.8); Lymphocytes % (A) 17 %; MCHC 33.7 g/dL (31.0-37.0); MCV 89.1 fL (80.0-100.0); Monocytes # (A) 0.7 k/uL (0-1.0); Monocytes % (A) 8 %; Neutrophils # (A) 6.1 k/uL (1.3-7.7); Neutrophils % (A) 69 %; Platelet Count 259 k/uL (150-450); RBC 6.35 m/uL (4.30-5.90); RDW 13.6 % (11.5-15.5); WBC 8.9 k/uL (3.8-10.6)
[2021-08-18 07:44] LABS: HCT 56.5 % (39.0-53.0)
--- NOTE | 2021-08-18 08:01 | CT ---
EXAMINATION TYPE: CT brain wo con DATE OF EXAM: 08/18/2021 COMPARISON: 08/15/2021 HISTORY: 61-year-old male confusion, Increase in stroke symptoms. Pt appears confused. TECHNIQUE: Examination was done in axial plane without intravenous contrast. Coronal and sagittal r econstructions performed. CT DLP: 1169.4 mGycm Automated exposure control for dose reduction was used. FINDINGS: Redemonstrated is hypodensity medial left cerebellar hemisphere extending into the posterolateral lef t medulla. No increasing size of the hypodensity or midline shift. Areas of peripheral encephalomalacia right cerebellar hemisphere. Cortical encephalomalacia posterior left occipital lobe and anterior right frontal lobe are redemonstrated. Moderate patchy white matter hypodensities in both cerebral hemispheres also unchanged. There is no evidence of acute intracranial hemorrhage, acute ischemic changes, mass, mass-effect, or extra-axial fluid collection. There is no effacement of cerebral sulci or basal subarachnoid cister ns. There is no hydrocephalus. There is no midline shift. Patton-white matter distinction is preserv ed. Trace mucosal thickening ethmoid air cells. Postresection changes left mastoid process. Status post F ESS. IMPRESSION: 1. Unchanged appearance to the probable subacute infarct medial left cerebellum extending into the po sterolateral left medulla. No increasing mass effect or midline shift. No hemorrhagic transformation. 2. Chronic infarcts within the right cerebellar hemisphere, posterior left occipital lobe, and anteri or right frontal lobe. Background moderate burden of chronic small vessel ischemic disease.
[2021-08-18] MEDS: TICAGRELOR 90 MG TAB PO SCH (08:16)
[2021-08-18] MEDS: METOPROLOL SUCCINATE (ER) 25 MG TAB.ER.24H PO SCH (08:16)
[2021-08-18] MEDS: LINAGLIPTIN 5 MG TABLET PO SCH (08:16)
[2021-08-18] MEDS: SODIUM CHLORIDE 0.9% 1,000 ML IV SCH ×2 (08:16→12:01)
[2021-08-18] MEDS: PANTOPRAZOLE 40 MG TABLET PO SCH (08:16)
[2021-08-18] MEDS: ASPIRIN 81 MG PO SCH (08:16)
[2021-08-18] MEDS: BACLOFEN 10 MG TAB PO SCH (08:16)
[2021-08-18 08:20] LABS: ALT 45 U/L (4-49); AST 33 U/L (17-59); African American GFR (CKD) >90 (>60 ml/min/1.73 sqM); Albumin 4.2 g/dL (3.5-5.0); Alkaline Phosphatase 88 U/L (38-126); Anion Gap 9 mmol/L; Blood Urea Nitrogen 21 mg/dL (9-20); Calcium 9.7 mg/dL (8.4-10.2); Carbon Dioxide 27 mmol/L (22-30); Chloride 98 mmol/L (98-107); Glucose 165 mg/dL (74-99); Non-African American GFR(CKD) >90 (>60 ml/min/1.73 sqM); Potassium 4.7 mmol/L (3.5-5.1); Sodium 134 mmol/L (137-145); Total Bilirubin 1.4 mg/dL (0.2-1.3); Total Protein 7.6 g/dL (6.3-8.2)
--- NOTE | 2021-08-18 08:53 | P.PN ---
Progress Note - Text Patient approved for IPR. Insurance authorization received.
--- NOTE | 2021-08-18 11:09 | P.PN ---
Subjective Progress Note Date: 08/18/21 I am following-up care of Mr. Leslie from Dr. Arellano. I saw the patient on initial presentation of 08/10/2021. Please refer to Dr. Arellano's notes for further details. Today around 6ish AM, the patient feel his dizziness is worse and had numbness on left side face. She also stated that he had the left-sided headache but denies any new weakness. He felt worse today compared to yesterday. He stated he continues to have hiccups and dizziness. CT head is ordered today in the morning and is reported as unchanged appearance to the probable subacute infarct medial left cerebellar extending into the posterolateral left middle. No increasing mass effect or midline shift. No hemorrhagic transformation. Chronic infarct within the right cerebellar hemisphere, posterior left occipital lobe, and anterior right frontal lobe. Background moderate burden of chronic small vessel ischemic disease. Objective - Vital Signs Vital signs: Vital Signs Temp 97.9 F 08/18/21 07:35 Pulse 72 08/18/21 07:35 Resp 18 08/18/21 07:35 BP 145/72 08/18/21 07:35 Pulse Ox 98 08/18/21 07:35 Intake & Output 08/17/21 08/18/21 08/18/21 18:59 06:59 18:59 Intake Total 180 180 Output Total 600 1775 Balance -420 -1775 180 Intake: Oral 180 180 Output: Urine 600 1775 Other: Voiding Method Urinal # Voids 1 - Exam GENERAL: The patient is lying in bed and appears in mild acute distress. NEUROLOGICAL: Higher mental function: The patient is awake, alert, oriented to self, place and time. Patient is following commands. No aphasia and no neglect. Cranial nerves: The pupils are round, mild right ptosis, appears slightly smaller left pupil, very questionable. and reactive to light. Visual anderson are full to confrontation throughout. Facial sensation is normal to touch throughout. The facial strength is normal throughout. Hearing is normal bilaterally to hand rub. Tongue is midline and moved [id number] without any difficulty. Mildly hoarse and dysarthria is noted. Motor: The strength is left upper extremity appears 4+ 5-. Otherwise 5 over 5 throughout. Normal tone and bulk. Cerebellum: Slight dysmetria over the left. side. Otherwise normal over the right. Sensation: Sensation is normal to touch throughout. - Labs CBC & Chem 7: 08/18/21 07:17 08/18/21 07:17 Labs: Abnormal Lab Results - Last 24 Hours (Table) 08/17/21 08/17/21 08/17/21 Range/Units 11:31 16:48 21:04 RBC (4.30-5.90) m/uL Hgb (13.0-17.5) gm/dL Hct (39.0-53.0) % Sodium (137-145) mmol/L BUN (9-20) mg/dL Glucose (74-99) mg/dL POC Glucose (mg/dL) 148 H 175 H 255 H (75-99) mg/dL Total Bilirubin (0.2-1.3) mg/dL 08/18/21 08/18/21 08/18/21 Range/Units 07:07 07:17 07:17 RBC 6.35 H (4.30-5.90) m/uL Hgb 19.0 H (13.0-17.5) gm/dL Hct 56.5 H (39.0-53.0) % Sodium 134 L (137-145) mmol/L BUN 21 H (9-20) mg/dL Glucose 165 H (74-99) mg/dL POC Glucose (mg/dL) 185 H (75-99) mg/dL Total Bilirubin 1.4 H (0.2-1.3) mg/dL Assessment and Plan Assessment: 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 MRI of the brain revealed an acute stroke in the left lateral medullary region as well as left cerebellar hemisphere. CTA of the head showed possibility of occlusion versus thrombus/clot in the right vertebral artery. No evidence of dissection. Dysphagia, diplopia, nystagmus, hiccups due to above. Uncontrolled hypertension. History of coronary artery disease status post stent Status post CABG History of hypertension Diabetes mellitus, uncontrolled. Tobacco use Plan: * CT head is ordered today in the morning and is reported as unchanged appearance to the probable subacute infarct medial left cerebellar extending into the posterolateral left middle. No increasing mass effect or midline shift. No hemorrhagic transformation. Chronic infarct within the right cerebellar hemisphere, posterior left occipital lobe, and anterior right frontal lobe. Background moderate burden of chronic small vessel ischemic disease. * I discussed case with neuro intervention Dr. Laurent today (08/18/2021) and he stated that no need for transfer for intervention at this time. Recommended to inform if symptoms progress significantly, then may need thrombectomy. * Contine Brilinta 90 mg twice a day and aspirin [address] Laurent will follow up patient as an outpatient. * Per Dr. Arellano: Patient has failed Thorazine, will stop it. Patient is too much groggy. Decrease baclofen down to 5 mg twice a day. Is on Reglan 5mg IV Q6 hour. * MRI of the brain revealed acute ischemia left lateral margin of the Medulla, and in the left cerebellar hemisphere. Patient has Wallenberg syndrome. I personally reviewed MRI of the brain and agree with the findings. * MRA of the head and neck showed suboptimal study in evaluating vertebral arteries. Patent right vertebral artery is not identified, correlating with recent CTA and ultrasound images. Occluded distal portion is seen on recent CT. Portion of patent small-caliber left vertebral artery is identified correlating with CTA but this become stenotic or occluded distally seen better on CT. Some filling of the basilar artery is presumed related to retrograde flow. No significant stenosis or aneurysm in the common or internal carotid arteries or the anterior circulation. I discussed MRI, MRA and CTA images with Dr. Foley. Concerned about presence of a thrombus in the right vertebral artery. * Patient has failed combination of Plavix and aspirin. * CT angiography of the head and neck is reported as subtotal occlusion of both vertebral arteries. Posterior cerebral arteries appear to be filling through the right posterior communicating artery. No significant intercranial and angiographic abnormality. Mild plaque formation at the origin of the internal carotid artery without hemodynamic stenosis at. * 2-D echo revealed normal left-ventricular size. Borderline concentric LVH. EF is between 60-65%. No pericardial effusion. Left atrial size is normal.. * Lipid panel cholesterol 197, LDL 127, HDL 45, triglycerides 121. Continue Lipitor 80 mg. * Hemoglobin A1c 11.6. Optimize control of diabetes to target A1c <7.0. * PT, OT and [employer] are consulted. Patient's swallow has got worse, now on nectar thick diet. * Continue neuro checks * On cardiac monitoring. Telemetry monitoring showing sinus rhythm, sinus bradycardia in the 57. * Patient was counseled on tobacco cessation. * Patient needs to follow-up with neurologist as outpatient within 1-2 weeks. * Physical medicine and rehab consult appreciated, patient will benefit from inpatient rehab. Await insurance authorization. If he continues to be stable by tomorrow he is clear from neurological perspective for rehab. The plan is discussed with patient and his nurse. Papo Grossman M.D. Neuro-Hospitalist Time with Patient: Less than 30
[2021-08-18 11:48] LABS: Glucose,Whole Blood 238 mg/dL (75-99)
--- NOTE | 2021-08-18 14:17 | P.DS ---
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 Patient will follow-up with Dr. Townsend in the outpatient setting upon discharge. Patient is to continue with hemodialysis as scheduled. Total time taken is greater than 35 minutes. Hospital course This is a 61-year-old male who was recently admitted with significant left side deficits and found to have significant posterior inferior cerebellar artery stroke and also significant left infarction and was being closely monitored. Neurology following recommending outpatient follow-up as well. Patient continued with weakness and some difficulty in swallowing and has been evaluated by speech therapy recommending dysphagia 2 ground diet with aspiration precautions and honey thickened liquids at all times. No straws, head of the bed elevated 30-45 supervision with meals. Patient needs encouragement and reinforcement on continuing to swallow multiple times and eat food more slowly. Patient is maintained on sliding scale along with pre-meal and recommended continued Accu-Cheks before meals and at bedtime and continued medication regimen as mentioned below. Patient will need outpatient follow-up with neurology along with following up with his primary care provider once discharged from the inpatient rehab. Currently no reports of chest pain, shortness of breath, or palpitations. Patient is afebrile. No reports of nausea or vomiting and patient is tolerating diet. Patient will be going to [facility] inpatient rehab today. Guarded prognosis On exam vital signs are stable. Cardio S1, S2 are muffled. Respiratory system shows diminished breath sounds at the bases with no wheezing or rhonchi noted. Abdomen is soft and obese, and nontender. Nervous system shows diffuse weakness. Please refer to medication reconciliation sheet for a list of medications. The impression and plan of care has been dictated by Maggie Madsen, Nurse Practitioner as directed. Dr. Jorge MD I have performed a history and examination and MDM of this patient, discussed the same with the dictator, and agree with the dictator's assessment and plan as written ,documented as a scribe. Based on total visit time, I have performed more than 50% of the visit. Patient Condition at Discharge: Fair Plan - Discharge Summary Discharge Rx Participant: No New Discharge Prescriptions: New Apixaban [Eliquis] 5 mg PO BID #60 tab Insulin Detemir (Levemir) [Levemir] 20 unit SQ DAILY@0700 ml Atorvastatin [Lipitor] 80 mg PO HS tab HYDROcodone/APAP 5-325MG [Weare 5-325] 1 each PO Q6HR PRN tab PRN Reason: Pain INSULIN ASPART (NovoLOG) [NovoLOG (formulary)] 8 unit SQ AC-TID ml Acetaminophen Tab [Tylenol] 325 mg PO Q6HR PRN tab PRN Reason: Fever Aspirin 81 mg PO DAILY Ticagrelor [Brilinta] 90 mg PO BID tab Insulin Detemir (Levemir) [Levemir] 50 unit SQ HS ml Baclofen [Lioresal] 5 mg PO BID tab INSULIN ASPART (NovoLOG) [NovoLOG (formulary)] 0 unit SQ ACHS ml Linagliptin [Tradjenta] 5 mg PO DAILY tablet Continue captopriL [Capoten] 25 mg PO BID Metoprolol Succinate (ER) [Toprol XL] 25 mg PO DAILY Pantoprazole [Protonix] 40 mg PO DAILY Discontinued Clopidogrel [Plavix] 75 mg PO DAILY Empagliflozin/Linagliptin [Glyxambi 10 mg-5 mg Tablet] 1 tab PO DAILY Cyclobenzaprine [Flexeril] 10 mg PO DAILY PRN PRN Reason: Muscle Spasm Discharge Medication List Metoprolol Succinate (ER) [Toprol XL] 25 mg PO DAILY 03/07/18 [History] captopriL [Capoten] 25 mg PO BID 03/07/18 [History] Pantoprazole [Protonix] 40 mg PO DAILY 08/10/21 [History] Apixaban [Eliquis] 5 mg PO BID #60 tab 08/14/21 [Rx] Acetaminophen Tab [Tylenol] 325 mg PO Q6HR PRN tab 08/18/21 [Rx] Aspirin 81 mg PO DAILY 08/18/21 [Rx] Atorvastatin [Lipitor] 80 mg PO HS tab 08/18/21 [Rx] Baclofen [Lioresal] 5 mg PO BID tab 08/18/21 [Rx] HYDROcodone/APAP 5-325MG [Weare 5-325] 1 each PO Q6HR PRN tab 08/18/21 [Rx] INSULIN ASPART (NovoLOG) [NovoLOG (formulary)] 0 unit SQ ACHS ml 08/18/21 [Rx] INSULIN ASPART (NovoLOG) [NovoLOG (formulary)] 8 unit SQ AC-TID ml 08/18/21 [Rx] Insulin Detemir (Levemir) [Levemir] 20 unit SQ DAILY@0700 ml 08/18/21 [Rx] Insulin Detemir (Levemir) [Levemir] 50 unit SQ HS ml 08/18/21 [Rx] Linagliptin [Tradjenta] 5 mg PO DAILY tablet 08/18/21 [Rx] Ticagrelor [Brilinta] 90 mg PO BID tab 08/18/21 [Rx] Follow up Appointment(s)/Referral(s): Noe Heller MD [Primary Care Provider] - 1-2 days Gypsy Byrd MD [REFERRING] - 1 Week Activity/Diet/Wound Care/Special Instructions: Patient is going to [facility] for inpatient rehab services Activity as tolerated Continue current medications as prescribed Continue dysphagia 2 ground diet with strict aspiration precautions, supervision with meals, head of the bed elevated 30-45 at all times, nectar thickened liquids, heart healthy, consistent carb, no straws Continue to have neurology following during inpatient rehab Follow up with primary care provider on discharge from rehab Patient will need continuous outpatient follow-up with neurology once discharged from rehab as well Continue to monitor Accu-Cheks before meals and at bedtime Continue with current medication regimen of insulins Eliquis copay is $47. Discharge Disposition: TRANSFER TO SNF/ECF
== END 2021-08-18 15:26 | DRG 65 ==
LOC: EC 02:34 → 3SCARD 06:53
PROVIDERS: ADMIT Hospitalist; ATTEND Hospitalist
DX: I63.542 Cerebral infarction due to unspecified occlusion or stenosis of left cerebellar artery (principal); G81.94 Hemiplegia, unspecified affecting left nondominant side; E87.1 Hypo-osmolality and hyponatremia; G37.9 Demyelinating disease of central nervous system, unspecified; E11.65 Type 2 diabetes mellitus with hyperglycemia; Z66 Do not resuscitate; G46.4 Cerebellar stroke syndrome; R29.705 NIHSS score 5; I65.03 Occlusion and stenosis of bilateral vertebral arteries; I67.89 Other cerebrovascular disease; G46.3 Brain stem stroke syndrome; I10 Essential (primary) hypertension; R13.10 Dysphagia, unspecified; R26.0 Ataxic gait; R47.1 Dysarthria and anarthria; H55.00 Unspecified nystagmus; R06.6 Hiccough; E05.90 Thyrotoxicosis, unspecified without thyrotoxic crisis or storm; I25.10 Atherosclerotic heart disease of native coronary artery without angina pectoris; K21.9 Gastro-esophageal reflux disease without esophagitis; T50.906A Underdosing of unspecified drugs, medicaments and biological substances, initial encounter; Z91.120 Patient's intentional underdosing of medication regimen due to financial hardship; F17.210 Nicotine dependence, cigarettes, uncomplicated; Z71.6 Tobacco abuse counseling; Z79.02 Long term (current) use of antithrombotics/antiplatelets; Z79.84 Long term (current) use of oral hypoglycemic drugs; Z79.01 Long term (current) use of anticoagulants; Z79.82 Long term (current) use of aspirin; Z79.899 Other long term (current) drug therapy; Z86.73 Personal history of transient ischemic attack (TIA), and cerebral infarction without residual deficits; Z85.46 Personal history of malignant neoplasm of prostate; Z95.1 Presence of aortocoronary bypass graft; Z95.5 Presence of coronary angioplasty implant and graft; Z87.39 Personal history of other diseases of the musculoskeletal system and connective tissue; Z90.79 Acquired absence of other genital organ(s); Z86.69 Personal history of other diseases of the nervous system and sense organs; Z98.890 Other specified postprocedural states; Z71.3 Dietary counseling and surveillance; Z88.0 Allergy status to penicillin
CPT/HCPCS: 36415; 70450; 70496; 70498; 70544; 70549; 70551; 74230; 80048; 80053; 80061; 82607; 82746; 83036; 83735; 84100; 84439; 84443; 84484; 85025; 85610; 85730; 93005; 93306; 93880; 94760; 96374; 99291

== ENCOUNTER 2021-09-03 08:43 | Emergency (ER) | payer MEDICARE ==
[2021-09-03 08:52] VITALS: RESP 16; TEMP 97.6
[2021-09-03] MEDS ORDERED: SODIUM CHLORIDE 0.9% 500 ML 500 ML IV STA (09:04)
--- NOTE | 2021-09-03 09:55 | ED ---
General Adult HPI - General Chief complaint: Weakness Stated complaint: Weakness Time Seen by Provider: 09/03/21 08:46 Source: patient, family, EMS, RN notes reviewed, old records reviewed Mode of arrival: EMS Limitations: no limitations - History of Present Illness Initial comments: 61-year-old male presenting for increased lethargy and generalized weakness. Patient had recent seizure with residual left-sided deficits. These are unchanged from baseline. There is no reported fever. No reported vomiting. No pain complaints. Patient has no complaints time my evaluation and states that he believes this is because he took 2 doses of baclofen this morning. He states that this is a new medication for him and he has not taken it for very long and believes he inadvertently took 2 doses this morning. - Related Data Home Medications Medication Instructions Recorded Confirmed Metoprolol Succinate (ER) [Toprol 25 mg PO DAILY 03/07/18 08/10/21 XL] captopriL [Capoten] 25 mg PO BID 03/07/18 08/10/21 Pantoprazole [Protonix] 40 mg PO DAILY 08/10/21 08/10/21 Previous Rx's Medication Instructions Recorded Acetaminophen Tab [Tylenol] 325 mg PO Q6HR PRN tab 08/18/21 Aspirin 81 mg PO DAILY 08/18/21 Atorvastatin [Lipitor] 80 mg PO HS tab 08/18/21 Baclofen [Lioresal] 5 mg PO BID tab 08/18/21 HYDROcodone/APAP 5-325MG [[place] 1 each PO Q6HR PRN tab 08/18/21 5-325] INSULIN ASPART (NovoLOG) [NovoLOG 0 unit SQ ACHS ml 08/18/21 (formulary)] INSULIN ASPART (NovoLOG) [NovoLOG 8 unit SQ AC-TID ml 08/18/21 (formulary)] Insulin Detemir (Levemir) [Levemir] 20 unit SQ DAILY@0700 ml 08/18/21 Insulin Detemir (Levemir) [Levemir] 50 unit SQ HS ml 08/18/21 Linagliptin [Tradjenta] 5 mg PO DAILY tablet 08/18/21 Ticagrelor [Brilinta] 90 mg PO BID tab 08/18/21 Allergies Allergy/AdvReac Type Severity Reaction Status Date / Time amoxicillin Allergy Unknown Rash/Hives Verified 08/10/21 12:10 Review of Systems ROS Statement: Those systems with pertinent positive or pertinent negative responses have been documented in the HPI. ROS Other: All systems not noted in ROS Statement are negative. Past Medical History Past Medical History: Cancer, Diabetes Mellitus, Hypertension, Musculoskeletal Disorder, Prostate Disorder Additional Past Medical History / Comment(s): hx. prostate cancer 2010, herniated discs, History of Any Multi-Drug Resistant Organisms: None Reported Past Surgical History: Coronary Bypass/CABG, Heart Catheterization With Stent, Orthopedic Surgery, Prostate Surgery Additional Past Surgical History / Comment(s): R ankle, R elbow x3, B knee arthroscopy, L ear, sinus surg., triple bypass 17 yrs. ago, prostatectomy Past Anesthesia/Blood Transfusion Reactions: Postoperative Nausea & Vomiting (PONV) Date of Last Stent Placement:: 2019 Past Psychological History: No Psychological Hx Reported Smoking Status: Current every day smoker Past Alcohol Use History: None Reported Past Drug Use History: None Reported General Exam Limitations: no limitations General appearance: alert, in no apparent distress Head exam: Present: atraumatic, normocephalic Eye exam: Present: normal appearance, PERRL ENT exam: Present: mucous membranes dry Neck exam: Present: normal inspection. Absent: tenderness, meningismus Respiratory exam: Present: normal lung sounds bilaterally. Absent: respiratory distress, wheezes Cardiovascular Exam: Present: regular rate, normal rhythm GI/Abdominal exam: Present: soft. Absent: distended, tenderness, guarding Extremities exam: Present: normal inspection, normal capillary refill. Absent: pedal edema, calf tenderness Neurological exam: Present: alert, oriented X3, motor sensory deficit (Patient does have symmetric movement of both upper and lower extremities. He has generalized weakness.) Psychiatric exam: Present: normal affect, normal mood Skin exam: Present: warm, dry, intact Course Vital Signs 09/03/21 09/03/21 08:46 08:53 Temperature 97.6 F Pulse Rate 75 Pulse Rate [ 69 Chair Caner ] Respiratory 16 Rate Blood Pressure 129/72 O2 Sat by Pulse 98 Oximetry EKG Findings - EKG Comments: EKG Findings:: EKG: Sinus rhythm nonspecific intraventricular conduction delay similar compared to prior. Rate of 79, VA interval 153, QRS duration 125, QTC 417, no ST segment elevation. Medical Decision Making - Medical Decision Making 61-year-old male presents with generalized weakness after taking a double dose of baclofen. He denies headache. Denies chest pain. Denies abdominal pain. Denies vomiting. Denies fever. He had previous CVA without worsening of his baseline weakness. I did obtain laboratory testing on this patient has a mild leukocytosis of uncertain etiology. Normal electrolytes with the exception of mild hypomagnesemia which is replaced. Urine test is unremarkable. Patient is eager for discharge. He does not want any further testing or treatment at this time. He will closely monitor his medications and will not take baclofen until he follows up with his primary care physician. - Lab Data Result diagrams: 09/03/21 10:12 09/03/21 10:12 Lab Results 09/03/21 09/03/21 09/03/21 Range/Units 10:12 10:12 10:12 WBC 13.5 H (3.8-10.6) k/uL RBC 5.42 (4.30-5.90) m/uL Hgb 15.6 D (13.0-17.5) gm/dL Hct 47.9 (39.0-53.0) % MCV 88.3 (80.0-100.0) fL MCH 28.9 (25.0-35.0) pg MCHC 32.7 (31.0-37.0) g/dL RDW 12.9 (11.5-15.5) % Plt Count 219 (150-450) k/uL MPV 7.1 Neutrophils % 80 % Lymphocytes % 9 % Monocytes % 7 % Eosinophils % 1 % Basophils % 1 % Neutrophils # 10.9 H (1.3-7.7) k/uL Lymphocytes # 1.3 (1.0-4.8) k/uL Monocytes # 1.0 (0-1.0) k/uL Eosinophils # 0.2 (0-0.7) k/uL Basophils # 0.1 (0-0.2) k/uL PT 10.5 (9.0-12.0) sec INR 1.0 (<1.2) APTT 20.9 L (22.0-30.0) sec Sodium (137-145) mmol/L Potassium (3.5-5.1) mmol/L Chloride (98-107) mmol/L Carbon Dioxide (22-30) mmol/L Anion Gap mmol/L BUN (9-20) mg/dL Creatinine (0.66-1.25) mg/dL Est GFR (CKD-EPI)AfAm (>60 ml/min/1.73 sqM) Est GFR (CKD-EPI)NonAf (>60 ml/min/1.73 sqM) Glucose (74-99) mg/dL Plasma Lactic Acid Song (0.7-2.0) mmol/L Calcium (8.4-10.2) mg/dL Magnesium (1.6-2.3) mg/dL Total Bilirubin (0.2-1.3) mg/dL AST (17-59) U/L ALT (4-49) U/L Alkaline Phosphatase (38-126) U/L Total Protein (6.3-8.2) g/dL Albumin (3.5-5.0) g/dL Urine Color Yellow Urine Appearance Clear (Clear) Urine pH 6.0 (5.0-8.0) Ur Specific [place] 1.018 (1.001-1.035) Urine Protein Negative (Negative) Urine Glucose (UA) Negative (Negative) Urine Ketones Negative (Negative) Urine Blood Negative (Negative) Urine Nitrite Negative (Negative) Urine Bilirubin Negative (Negative) Urine Urobilinogen 4.0 (<2.0) mg/dL Ur Leukocyte Esterase Negative (Negative) 09/03/21 09/03/21 Range/Units 10:12 10:12 WBC (3.8-10.6) k/uL RBC (4.30-5.90) m/uL Hgb (13.0-17.5) gm/dL Hct (39.0-53.0) % MCV (80.0-100.0) fL MCH (25.0-35.0) pg MCHC (31.0-37.0) g/dL RDW (11.5-15.5) % Plt Count (150-450) k/uL MPV Neutrophils % % Lymphocytes % % Monocytes % % Eosinophils % % Basophils % % Neutrophils # (1.3-7.7) k/uL Lymphocytes # (1.0-4.8) k/uL Monocytes # (0-1.0) k/uL Eosinophils # (0-0.7) k/uL Basophils # (0-0.2) k/uL PT (9.0-12.0) sec INR (<1.2) APTT (22.0-30.0) sec Sodium 135 L (137-145) mmol/L Potassium 4.7 (3.5-5.1) mmol/L Chloride 102 (98-107) mmol/L Carbon Dioxide 25 (22-30) mmol/L Anion Gap 8 mmol/L BUN 22 H (9-20) mg/dL Creatinine 0.75 (0.66-1.25) mg/dL Est GFR (CKD-EPI)AfAm >90 (>60 ml/min/1.73 sqM) Est GFR (CKD-EPI)NonAf >90 (>60 ml/min/1.73 sqM) Glucose 136 H (74-99) mg/dL Plasma Lactic Acid Song 1.2 (0.7-2.0) mmol/L Calcium 8.6 (8.4-10.2) mg/dL Magnesium 1.5 L (1.6-2.3) mg/dL Total Bilirubin 1.2 (0.2-1.3) mg/dL AST 28 (17-59) U/L ALT 27 (4-49) U/L Alkaline Phosphatase 89 (38-126) U/L Total Protein 6.4 (6.3-8.2) g/dL Albumin 3.3 L (3.5-5.0) g/dL Urine Color Urine Appearance (Clear) Urine pH (5.0-8.0) Ur Specific [place] (1.001-1.035) Urine Protein (Negative) Urine Glucose (UA) (Negative) Urine Ketones (Negative) Urine Blood (Negative) Urine Nitrite (Negative) Urine Bilirubin (Negative) Urine Urobilinogen (<2.0) mg/dL Ur Leukocyte Esterase (Negative) Disposition Clinical Impression: Hypomagnesemia, Medication adverse effect Disposition: HOME SELF-CARE Condition: Fair Instructions (If sedation given, give patient instructions): Hypomagnesemia (ED) Additional Instructions: Please take medications as prescribed. Please return the emergency department with worsening or changing symptoms. Please follow up with her primary care physician. Is patient prescribed a controlled substance at d/c from ED?: No Referrals: Noe Heller MD [Primary Care Provider] - 1-2 days Time of Disposition: 11:40
[2021-09-03 10:24] LABS: Basophils # (A) 0.1 k/uL (0-0.2); Basophils % (A) 1 %; Eosinophils # (A) 0.2 k/uL (0-0.7); Eosinophils % (A) 1 %; HCT 47.9 % (39.0-53.0); Lymphocytes # (A) 1.3 k/uL (1.0-4.8); Lymphocytes % (A) 9 %; MCH 28.9 pg (25.0-35.0); MCHC 32.7 g/dL (31.0-37.0); MCV 88.3 fL (80.0-100.0); Mean Platelet Volume 7.1; Monocytes % (A) 7 %; Neutrophils # (A) 10.9 k/uL (1.3-7.7); Neutrophils % (A) 80 %; Platelet Count 219 k/uL (150-450); RBC 5.42 m/uL (4.30-5.90); RDW 12.9 % (11.5-15.5); WBC 13.5 k/uL (3.8-10.6)
[2021-09-03 10:25] LABS: Appearance,Urine Clear (Clear); Bilirubin,Urine Negative (Negative); Blood,Urine Negative (Negative); Color,Urine Yellow; Glucose,Urine (UA) Negative (Negative); Ketones,Urine Negative (Negative); Leukocyte Esterase,Urine Negative (Negative); Nitrite,Urine Negative (Negative); Protein,Urine Negative (Negative); Specific Gravity,Urine 1.018 (1.001-1.035)
[2021-09-03 10:28] LABS: HGB 15.6 gm/dL (13.0-17.5)
[2021-09-03 10:35] LABS: ALT 27 U/L (4-49); African American GFR (CKD) >90 (>60 ml/min/1.73 sqM); Albumin 3.3 g/dL (3.5-5.0); Anion Gap 8 mmol/L; Blood Urea Nitrogen 22 mg/dL (9-20); Calcium 8.6 mg/dL (8.4-10.2); Carbon Dioxide 25 mmol/L (22-30); Chloride 102 mmol/L (98-107); Glucose 136 mg/dL (74-99); Non-African American GFR(CKD) >90 (>60 ml/min/1.73 sqM); Sodium 135 mmol/L (137-145); Total Bilirubin 1.2 mg/dL (0.2-1.3); Total Protein 6.4 g/dL (6.3-8.2)
[2021-09-03 10:44] LABS: AST 28 U/L (17-59); Alkaline Phosphatase 89 U/L (38-126); Magnesium 1.5 mg/dL (1.6-2.3); Partial Thromboplastin Time 20.9 sec (22.0-30.0); Potassium 4.7 mmol/L (3.5-5.1); Prothrombin Time 10.5 sec (9.0-12.0)
[2021-09-03] MEDS ORDERED: MAGNESIUM SULFATE-D5W PMX 1 GM in DEXTROSE/WATER 1 100ML.BAG IVPB ONE (10:53)
[2021-09-03 12:37] VITALS: BP 135/74; PULSE 68
== END 2021-09-03 12:37 | disposition home or self-care (01) ==
LOC: EC 08:43
DX: E83.42 Hypomagnesemia (principal); T48.1X5A Adverse effect of skeletal muscle relaxants [neuromuscular blocking agents], initial encounter; E11.9 Type 2 diabetes mellitus without complications; I10 Essential (primary) hypertension; F17.200 Nicotine dependence, unspecified, uncomplicated; Z79.82 Long term (current) use of aspirin; Z79.4 Long term (current) use of insulin; Z85.46 Personal history of malignant neoplasm of prostate; Z95.1 Presence of aortocoronary bypass graft
CPT/HCPCS: 99285; 96365; 36415; 93005; 80053; 83605; 83735; 85025; 85610; 85730; 81003; J3475

== ENCOUNTER → 2022-05-13 | Outpatient (CLI) | payer MEDICARE ==
--- NOTE | 2022-05-13 13:37 | CT ---
EXAMINATION TYPE: CT sinus wo/w con DATE OF EXAM: 05/13/2022 COMPARISON: None HISTORY: recurring nose bleeds CT DLP: 916.7 mGycm Automated exposure control for dose reduction was used. CONTRAST: CT scan of the facial bones is performed without and with IV Contrast, patient injected with 70cc mL of Isovue 300. TECHNIQUE: CT scan of the sinuses is performed without contrast, axial images are obtained, coronal r eformatted images are also reviewed. FINDINGS: There is evidence of medial maxillary antrectomy bilaterally as well as partial ethmoidectomy. There is mild mucosal thickening of the maxillary sinuses and remaining ethmoid air cells as well as the fr ontal sinuses. The sphenoid sinuses well aerated. No bony destructive process is identified. Nasal septum is midline.. Normal-appearing right-sided mastoid air cells. Hyperaeration left-sided mastoid air cells. The globe s are intact bilaterally. IMPRESSION: 1. Postoperative changes as discussed with mild chronic sinusitis. 2. No bony destructive process or enhancing lesion. 3. Hypoaeration left-sided mastoid air cells.
== END | disposition home or self-care (01) ==
LOC: RADCTMAIN 12:13
PROVIDERS: ATTEND Internal Medicine Rheumatology
DX: J32.9 Chronic sinusitis, unspecified (principal); J34.89 Other specified disorders of nose and nasal sinuses; M31.30 Wegener's granulomatosis without renal involvement
CPT/HCPCS: 82565; 84520; 36415; 70488; Q9967

== ENCOUNTER 2023-08-12 12:16 | Observation (INO) | payer MEDICARE ==
--- NOTE | 2023-08-12 12:58 | ED ---
General Adult HPI - General Chief complaint: Chest Pain Stated complaint: chest pain Time Seen by Provider: 08/12/23 12:45 Source: patient, RN notes reviewed, old records reviewed Mode of arrival: ambulatory Limitations: no limitations - History of Present Illness Initial comments: This is a 63-year-old male who presents to the emergency department complaining of chest pain. Patient states 3 days ago he started having some back pain and in the morning after he woke up he started having some anterior chest pain. Patient states the night before he did fall the night before it all started. Patient states he has had bypass surgery. Patient is a diabetic has a high blood pressure and has high cholesterol. Patient has a strong family history as well. Patient does not smoke. Patient states the pain is somewhat reproducible to but it is a pressure sensation in the chest. Patient denies any recent fever chills or cough or patient has abdominal pain patient has nausea vomiting diarrhea. - Related Data Home Medications Medication Instructions Recorded Confirmed Metoprolol Succinate (ER) [Toprol 25 mg PO DAILY 03/07/18 07/20/22 XL] Ezetimibe [Zetia] 10 mg PO DAILY 07/20/22 07/20/22 Folic Acid 1 mg PO DAILY 07/20/22 07/20/22 Glimepiride [Amaryl] 4 mg PO BID 07/20/22 07/20/22 Ketoconazole 2% Shampoo [Nizoral] 1 applic TOPICAL Q2D 07/20/22 07/20/22 Methotrexate/Pf [Reditrex 25 mg/ml 25 mg SQ Q7D 07/20/22 07/20/22 Syringe] Mupirocin 2% Oint [Bactroban 2% 1 applic TOPICAL BID PRN 07/20/22 07/20/22 Oint] Tirzepatide [Mounjaro] 5 mg SQ Q7D 07/20/22 07/20/22 Triamcinolone 0.1% Cream [Kenalog 1 applic TOPICAL BID PRN 07/20/22 07/20/22 0.1% Cream] cycloSPORINE 0.05% OPHTH SOLN 1 applicator BOTH EYES BID 07/20/22 07/20/22 [Restasis] metFORMIN HCL 1,000 mg PO BID 07/20/22 07/20/22 predniSONE See Taper PO DIRECTED 07/20/22 07/20/22 Previous Rx's Medication Instructions Recorded Acetaminophen Tab [Tylenol] 650 mg PO Q6HR PRN tab 07/22/22 Metoclopramide [Reglan] 10 mg PO ACHS 5 Days #20 tab 07/22/22 Pantoprazole Sodium [Protonix] 40 mg PO BID #60 tab 07/22/22 Allergies Allergy/AdvReac Type Severity Reaction Status Date / Time amoxicillin Allergy Unknown Rash/Hives Verified 07/20/22 08:56 Review of Systems ROS Statement: Those systems with pertinent positive or pertinent negative responses have been documented in the HPI. ROS Other: All systems not noted in ROS Statement are negative. Past Medical History Past Medical History: Cancer, Diabetes Mellitus, Hypertension, Musculoskeletal Disorder, Prostate Disorder Additional Past Medical History / Comment(s): hx. prostate cancer 2010, herniated discs, History of Any Multi-Drug Resistant Organisms: None Reported Past Surgical History: Coronary Bypass/CABG, Heart Catheterization With Stent, Orthopedic Surgery, Prostate Surgery Additional Past Surgical History / Comment(s): R ankle, R elbow x3, B knee arthroscopy, L ear, sinus surg., triple bypass 17 yrs. ago, prostatectomy Past Anesthesia/Blood Transfusion Reactions: Postoperative Nausea & Vomiting (PONV) Date of Last Stent Placement:: 2019 Past Psychological History: No Psychological Hx Reported Smoking Status: Current every day smoker Past Alcohol Use History: None Reported Past Drug Use History: None Reported - Past Family History Father Family Medical History: Chest Pain / Angina General Exam - General Exam Comments Initial Comments: GENERAL: Patient is well-developed and well-nourished. Patient is nontoxic and well- hydrated and is in mild distress. ENT: Neck is soft and supple. No significant lymphadenopathy is noted. Oropharynx is clear. Moist mucous membranes. Neck has full range of motion without eliciting any pain. EYES: The sclera were anicteric and conjunctiva were pink and moist. Extraocular movements were intact and pupils were equal round and reactive to light. Eyelids were unremarkable. PULMONARY: Unlabored respirations. Good breath sounds bilaterally. No audible rales rhonchi or wheezing was noted. CARDIOVASCULAR: There is a regular rate and rhythm without any murmurs gallops or rubs. Chest pain is somewhat reproducible anteriorly ABDOMEN: Soft and nontender with normal bowel sounds. SKIN: Skin is clear with no lesions or rashes and otherwise unremarkable. NEUROLOGIC: Patient is alert and oriented x3. Cranial nerves II through XII are grossly intact. Motor and sensory are also intact. Normal speech, volume and content. Symmetrical smile. MUSCULOSKELETAL: Normal extremities with adequate strength and full range of motion. No lower extremity swelling or edema. No calf tenderness. LYMPHATICS: No significant lymphadenopathy is noted PSYCHIATRIC: Normal psychiatric evaluation. 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 Patient's EKG shows no ST segment elevation. Patient does have a right bundle branch block. Patient does have Q waves in the inferior leads. Was pt. sent in by a medical professional or institution (, PA, STRATEGIC PLANNING MANAGER, urgent care, hospital, or senior care...) When possible be specific @ -No Did you speak to anyone other than the patient for history (EMS, parent, family, police, friend...)? What history was obtained from this source @ -No Did you review nursing and triage notes (agree or disagree)? Why? @ -I reviewed and agree with nursing and triage notes Were old charts reviewed (outside hosp., previous admission, EMS record, old EKG, old radiological studies, urgent care reports/EKG's, senior care records)? Report findings @ -I reviewed prior charts and prior lab work on this patient Differential Diagnosis (chest pain, altered mental status, abdominal pain women, abdominal pain men, vaginal bleeding, weakness, fever, dyspnea, syncope, headache, dizziness, GI bleed, back pain, seizure, CVA, palpatations, mental health, musculoskeletal)? @ -Differential Chest Pain: Stable Angina, Unstable Angina, STEMI, NSTEMI Aortic Dissection, Pneumothorax, Musculoskeletal, Esophageal Spasm GERD, Cholecystitis, Pancreatitis, Zoster, this is not meant to be an all-inclusive list. EKG interpreted by me (3pts min.). @ -As above X-rays interpreted by me (1pt min.). @ -Chest x-ray shows no acute abnormality CT interpreted by me (1pt min.). @ -None done U/S interpreted by me (1pt. min.). @ -None done What testing was considered but not performed or refused? (CT, X-rays, U/S, labs)? Why? @ -None What meds were considered but not given or refused? Why? @ -None Did you discuss the management of the patient with other professionals (ladi preston i.e. , PA, STRATEGIC PLANNING MANAGER, lab, RT, psych nurse, criminal justice social worker, plc controls engineer, teacher, parcel post officer, medical case manager)? Give summary @ -[facility] the pa tient admit the patient wrote admitting orders Was smoking cessation discussed for >3mins.? @ -No Was critical care preformed (if so, how long)? @ -No Were there social determinants of health that impacted care today? How? (Homelessness, low income, unemployed, alcoholism, drug addiction, transporta tion, low edu. Level, literacy, decrease access to med. care, residential, rehab)? @ -No Was there de-escalation of care discussed even if they declined (Discuss DNR or withdrawal of care, Hospice)? DNR status @ -No What co-morbidities impacted this encounter? (DM, HTN, Smoking, COPD, CAD, Cancer, CVA, ARF, Chemo, Hep., AIDS, mental health diagnosis, sleep apnea, morbid obesity)? @ -None Was patient admitted / discharged? Hospital course, mention meds given and route, prescriptions, significant lab abnormalities, going to OR and other pertinent info. @ -Patient received aspirin Nitropaste in emergency department continue to have chest pain. I did give the patient some morphine and a little Toradol because of the reproducible pain. [facility] admit the patient wrote admitting orders and I consult cardiology Undiagnosed new problem with uncertain prognosis? @ -No Drug Therapy requiring intensive monitoring for toxicity (Heparin, Nitro, Insulin, Cardizem)? @ -No Were any procedures done? @ -No Diagnosis/symptom? @ -Chest pain Acute, or Chronic, or Acute on Chronic? @ -Acute Uncomplicated (without systemic symptoms) or Complicated (systemic symptoms)? @ -Complicated Side effects of treatment? @ -No Exacerbation, Progression, or Severe Exacerbation? @ -No Poses a threat to life or bodily function? How? (Chest pain, [place], UT, pneumonia, PE, COPD, DKA, ARF, appy, cholecystitis, CVA, Diverticulitis, Homicidal, Suicidal, threat to staff... and all critical care pts) @ -Yes this could lead to an UT and endorgan dysfunction - Lab Data Result diagrams: 08/12/23 13:00 08/12/23 13:00 Lab Results 08/12/23 08/12/23 08/12/23 Range/Units 13:00 13:00 13:00 WBC 5.3 (3.8-10.6) k/uL RBC 5.85 (4.30-5.90) m/uL Hgb 16.5 (13.0-17.5) gm/dL Hct 52.1 (39.0-53.0) % MCV 89.0 (80.0-100.0) fL MCH 28.2 (25.0-35.0) pg MCHC 31.7 (31.0-37.0) g/dL RDW 13.9 (11.5-15.5) % Plt Count 234 (150-450) k/uL MPV 6.8 Neutrophils % 68 % Lymphocytes % 20 % Monocytes % 8 % Eosinophils % 2 % Basophils % 1 % Neutrophils # 3.6 (1.3-7.7) k/uL Lymphocytes # 1.0 (1.0-4.8) k/uL Monocytes # 0.4 (0-1.0) k/uL Eosinophils # 0.1 (0-0.7) k/uL Basophils # 0.1 (0-0.2) k/uL PT 10.6 (10.0-12.5) sec INR 1.0 (<1.2) APTT 25.4 (22.0-30.0) sec D-Dimer 0.50 (<0.60) mg/L FEU Sodium 137 (137-145) mmol/L Potassium 4.6 (3.5-5.1) mmol/L Chloride 105 (98-107) mmol/L Carbon Dioxide 25 (22-30) mmol/L Anion Gap 7 mmol/L BUN 24 H (9-20) mg/dL Creatinine 0.77 (0.66-1.25) mg/dL Est GFR (CKD-EPI)AfAm >90 (>60 ml/min/1.73 sqM) Est GFR (CKD-EPI)NonAf >90 (>60 ml/min/1.73 sqM) Glucose 246 H (74-99) mg/dL Calcium 9.3 (8.4-10.2) mg/dL Magnesium 1.9 (1.6-2.3) mg/dL Total Bilirubin 0.8 (0.2-1.3) mg/dL AST 29 (17-59) U/L ALT 22 (4-49) U/L Alkaline Phosphatase 110 (38-126) U/L Troponin I (0.000-0.034) ng/mL Total Protein 6.9 (6.3-8.2) g/dL Albumin 4.2 (3.5-5.0) g/dL 08/12/23 Range/Units 13:00 WBC (3.8-10.6) k/uL RBC (4.30-5.90) m/uL Hgb (13.0-17.5) gm/dL Hct (39.0-53.0) % MCV (80.0-100.0) fL MCH (25.0-35.0) pg MCHC (31.0-37.0) g/dL RDW (11.5-15.5) % Plt Count (150-450) k/uL MPV Neutrophils % % Lymphocytes % % Monocytes % % Eosinophils % % Basophils % % Neutrophils # (1.3-7.7) k/uL Lymphocytes # (1.0-4.8) k/uL Monocytes # (0-1.0) k/uL Eosinophils # (0-0.7) k/uL Basophils # (0-0.2) k/uL PT (10.0-12.5) sec INR (<1.2) APTT (22.0-30.0) sec D-Dimer (<0.60) mg/L FEU Sodium (137-145) mmol/L Potassium (3.5-5.1) mmol/L Chloride (98-107) mmol/L Carbon Dioxide (22-30) mmol/L Anion Gap mmol/L BUN (9-20) mg/dL Creatinine (0.66-1.25) mg/dL Est GFR (CKD-EPI)AfAm (>60 ml/min/1.73 sqM) Est GFR (CKD-EPI)NonAf (>60 ml/min/1.73 sqM) Glucose (74-99) mg/dL Calcium (8.4-10.2) mg/dL Magnesium (1.6-2.3) mg/dL Total Bilirubin (0.2-1.3) mg/dL AST (17-59) U/L ALT (4-49) U/L Alkaline Phosphatase (38-126) U/L Troponin I <0.012 (0.000-0.034) ng/mL Total Protein (6.3-8.2) g/dL Albumin (3.5-5.0) g/dL Disposition Clinical Impression: Chest pain Disposition: ADMITTED IP TO THIS [facility] Referrals: Claritza Troncoso DO [Primary Care Provider] - 1-2 days Time of Disposition: 13:45
[2023-08-12] MEDS: NITROGLYCERIN OINT 1 INCH/GM PACKET TOPICAL STA (13:00)
[2023-08-12] MEDS: SODIUM CHLORIDE 0.9% 500 ML 500 ML IV STA (13:00)
[2023-08-12] MEDS: ASPIRIN 81 MG PO STA (13:00)
[2023-08-12 13:16] LABS: Basophils # (A) 0.1 k/uL (0-0.2); Basophils % (A) 1 %; Eosinophils # (A) 0.1 k/uL (0-0.7); Eosinophils % (A) 2 %; HCT 52.1 % (39.0-53.0); HGB 16.5 gm/dL (13.0-17.5); Lymphocytes % (A) 20 %; MCH 28.2 pg (25.0-35.0); MCHC 31.7 g/dL (31.0-37.0); Mean Platelet Volume 6.8; Monocytes # (A) 0.4 k/uL (0-1.0); Monocytes % (A) 8 %; Neutrophils # (A) 3.6 k/uL (1.3-7.7); Neutrophils % (A) 68 %; Platelet Count 234 k/uL (150-450); RBC 5.85 m/uL (4.30-5.90); RDW 13.9 % (11.5-15.5); WBC 5.3 k/uL (3.8-10.6)
--- NOTE | 2023-08-12 13:23 | XR ---
EXAMINATION TYPE: XR chest 2V DATE OF EXAM: 08/12/2023 1:13 PM CLINICAL INDICATION:Male, 63 years old with history of Chest Pain COMPARISON: Chest radiographs from 07/20/2022 TECHNIQUE: XR chest 2V Frontal and lateral views of the chest. FINDINGS: Lungs/Pleura: There is flattening of the diaphragm with increased lucency of the lungs. No evidence o f pneumothorax, pleural effusion or focal consolidation. Pulmonary vascularity: Unremarkable. Heart/mediastinum: Cardiomediastinal silhouette is unremarkable. Musculoskeletal: No acute osseous pathology. Midline sternotomy wires are noted. IMPRESSION: 1. No acute cardiopulmonary disease process. 2. COPD changes.
[2023-08-12 13:24] LABS: ALT 22 U/L (4-49); AST 29 U/L (17-59); African American GFR (CKD) >90 (>60 ml/min/1.73 sqM); Albumin 4.2 g/dL (3.5-5.0); Alkaline Phosphatase 110 U/L (38-126); Anion Gap 7 mmol/L; Blood Urea Nitrogen 24 mg/dL (9-20); Calcium 9.3 mg/dL (8.4-10.2); Carbon Dioxide 25 mmol/L (22-30); Chloride 105 mmol/L (98-107); Glucose 246 mg/dL (74-99); Magnesium 1.9 mg/dL (1.6-2.3); Non-African American GFR(CKD) >90 (>60 ml/min/1.73 sqM); Potassium 4.6 mmol/L (3.5-5.1); Sodium 137 mmol/L (137-145); Total Bilirubin 0.8 mg/dL (0.2-1.3); Total Protein 6.9 g/dL (6.3-8.2)
[2023-08-12 13:31] LABS: Partial Thromboplastin Time 25.4 sec (22.0-30.0); Prothrombin Time 10.6 sec (10.0-12.5)
[2023-08-12] MEDS ORDERED: NITROGLYCERIN SL TABS 0.4 MG TAB SUBLINGUAL PRN (13:46)
[2023-08-12] MEDS: KETOROLAC 15 MG/ML 1 ML VIAL IVP STA (14:31)
[2023-08-12] MEDS: MORPHINE SULFATE 2 MG/ML SYRINGE IVP STA (14:31)
[2023-08-12] MEDS ORDERED: DEXTROSE 50% SYRINGE 50 ML IVP PRN ×2 (16:37)
[2023-08-12] MEDS ORDERED: HYDROcodone/APAP 5-325MG 1 EACH TAB PO PRN (16:38)
[2023-08-12 17:05] LABS: Glucose,Whole Blood 62 mg/dL (70-110)
[2023-08-12] MEDS: INSULIN ASPART (NovoLOG) 100 UNIT/ML VIAL SQ SCH (17:26)
[2023-08-12 18:04] LABS: Glucose,Whole Blood 88 mg/dL (70-110)
[2023-08-12] MEDS: NITROGLYCERIN OINT 1 INCH/GM PACKET TOPICAL SCH (18:08)
[2023-08-12 20:03] LABS: Glucose,Whole Blood 137 mg/dL (70-110)
[2023-08-12] MEDS: prednisoLONE ACETATE 1% OPHTH DROPS 5 ML BTL LEFT EYE SCH (20:12)
[2023-08-12] MEDS: cycloSPORINE 0.05% OPHTH 0.4 ML DROPERETTE BOTH EYES SCH (20:13)
--- NOTE | 2023-08-13 01:04 | P.HPIM ---
History of Present Illness H&P Date: 08/12/23 Chief Complaint: Chest pain Patient is a 63-year-old male with a past medical history of hypertension, diabetes type 2, history of prostate cancer in 2010, coronary artery disease status post CABG and stent placement and currently everyday smoker presents to ER with complaints of chest pain. Chest pain is mainly left retrosternal and worsens with deep breathing. Patient states that he drank 2 shots about 4 days ago and felt while reaching the bed. Since then he has been having back pain and moved to the front since then he has been having pain which is not getting b servando. Patient does have significant history of coronary disease with bypass graft. Denies any fever or chills. No nausea vomiting abdominal pain or diarrhea. Denies any dizziness or lightheadedness. No cough or sputum production. Patient present to the ER for further evaluation. EKG showed normal sinus rhythm. Chest x-ray showed no acute cardiopulmonary process. COPD changes. Laboratory data showed WBC 5.3 hemoglobin 16.5 and platelets 234 D-dimer 0.5 BUN 24 and creatinine 0.77 blood sugar is 246 Troponin x 2 negative. Review of Systems Constitutional: Patient denies any fever or chills . No generalized weakness or weight loss. Abdomen: Patient denied nausea vomiting and diarrhea and abdominal pain. Cardiovascular: Patient complains of left upper retrosternal chest pain. No short of breath no palpitations. No leg swelling Respiratory: patient does have cough without sputum production. No shortness of breath Neurologic: Patient denied any numbness or tingling headache. Musculoskeletal: Patient denies any complaints of joint swelling or deformity. Skin: Negative Psychiatric: Negative Endocrine: No heat or cold intolerance. No recent weight gain. Genitourinary: No dysuria or hematuria. All other 14 point ROS negative except the above Past Medical History Past Medical History: Cancer, Diabetes Mellitus, Hypertension, Musculoskeletal Disorder, Prostate Disorder Additional Past Medical History / Comment(s): hx. prostate cancer 2010, herniated discs, History of Any Multi-Drug Resistant Organisms: None Reported Past Surgical History: Coronary Bypass/CABG, Heart Catheterization With Stent, Orthopedic Surgery, Prostate Surgery Additional Past Surgical History / Comment(s): R ankle, R elbow x3, B knee arthroscopy, L ear, sinus surg., triple bypass 17 yrs. ago, prostatectomy Past Anesthesia/Blood Transfusion Reactions: Postoperative Nausea & Vomiting (PONV) Date of Last Stent Placement:: 2019 Past Psychological History: No Psychological Hx Reported Smoking Status: Current every day smoker Past Alcohol Use History: None Reported Past Drug Use History: None Reported - Past Family History Father Family Medical History: Chest Pain / Angina Medications and Allergies Home Medications Medication Instructions Recorded Confirmed Type RX: Metoprolol Succinate (ER) 25 mg PO DAILY 03/07/18 08/12/23 History [Toprol XL] RX: Ezetimibe [Zetia] 10 mg PO DAILY 07/20/22 08/12/23 History RX: cycloSPORINE 0.05% OPHTH SOLN 1 applicator BOTH EYES BID 07/20/22 08/12/23 History [Restasis] RX: metFORMIN HCL 1,000 mg PO BID 07/20/22 08/12/23 History RX: Celecoxib [CeleBREX] 200 mg PO DAILY PRN 08/12/23 08/12/23 History RX: Empagliflozin [Jardiance] 25 mg PO DAILY 08/12/23 08/12/23 History RX: Insulin Degludec [Tresiba 20 units SQ DAILY 08/12/23 08/12/23 History Flextouch U-100 Pen] RX: Pantoprazole Sodium [Protonix] 40 mg PO DAILY 08/12/23 08/12/23 History RX: Pioglitazone [Actos] 15 mg PO DAILY 08/12/23 08/12/23 History RX: prednisoLONE ACETATE 1% OPHTH 1 drops LEFT EYE BID 08/12/23 08/12/23 History [Pred Forte 1%] RX: Aspirin EC [Ecotrin Low Dose] 81 mg PO DAILY 90 Days #90 tab 08/13/23 Rx RX: Atorvastatin [Lipitor] 40 mg PO DAILY 90 Days #90 tab 08/13/23 Rx RX: Losartan [Cozaar] 12.5 mg PO DAILY 90 Days #90 tab 08/13/23 Rx Allergies Allergy/AdvReac Type Severity Reaction Status Date / Time amoxicillin Allergy Unknown Rash/Hives Verified 07/20/22 08:56 Physical Exam Vitals: Vital Signs Temp Pulse Pulse Resp BP Pulse Ox 08/12/23 16:00 61 18 135/71 96 08/12/23 14:30 61 18 130/65 99 08/12/23 13:04 63 18 118/88 99 08/12/23 12:50 65 08/12/23 12:41 98.5 F 63 16 120/67 96 Intake and Output 08/12/23 08/12/23 08/12/23 06:59 14:59 22:59 Other: Weight 79.379 kg PHYSICAL EXAMINATION: Patient is lying in the bed comfortably, no acute distress, awake alert and oriented.. HEENT: Normocephalic. Neck is supple. Pupils reactive. Nostrils clear. Oral cavity is moist. Neck reveals no JVD, carotid bruits, or thyromegaly. CHEST EXAMINATION: Trachea is central. Symmetrical expansion. Left upper chest wall tenderness with deep palpation. Lung anderson clear to auscultation and percussion. CARDIAC: Normal S1, S2 with no gallops. No murmurs ABDOMEN: Soft. Bowel sounds normal. No organomegaly. No abdominal bruits. Extremities: reveal no edema. No clubbing or cyanosis Neurologically awake, alert, oriented x3 with well-coordinated movements. No focal deficits noted Skin: No rash or skin lesions. Psychiatric: Coperative. Nonsuicidal Musculoskeletal: No joint swelling or deformity. Normal range of motion. Results CBC & Chem 7: 08/12/23 13:00 08/12/23 13:00 Labs: Abnormal Lab Results - Last 24 Hours (Table) 08/12/23 Range/Units 13:00 BUN 24 H (9-20) mg/dL Glucose 246 H (74-99) mg/dL Thrombosis Risk Factor Assmnt - DVT/VTE Prophylaxis DVT/VTE Prophylaxis: Pharmacologic Prophylaxis ordered Assessment and Plan Assessment: Chest pain likely musculoskeletal which is reproducible and worsens with deep breathing. D-dimer is not elevated. Likely secondary to fall about 4 days ago. Encourage incentive spirometry. Rule out ACS Coronary artery disease with history of CABG and stent placement Hyperglycemia is uncontrolled diabetes type 2 insulin-dependent Dehydration and volume depletion Hypertension History of prostate cancer s/p surgery in 2010 Currently everyday smoker COPD not in exacerbation GI DVT prophylaxis Plan: Patient will be continued on telemetry. Continue serial EKG and troponins. Start back on insulin and titrate dose as needed. Continue with aspirin and statins and metoprolol. Cardiology was consulted for evaluation. Continued pain management with [facility]. Follow-up closely. Time with Patient: Greater than 30
[2023-08-13 08:55] VITALS: BP 124/72; PULSE 48; RESP 16; TEMP 98
[2023-08-13] MEDS: DAPAGLIFLOZIN PROPANEDIOL 10 MG TABLET PO SCH (09:00)
[2023-08-13] MEDS: ATORVASTATIN 40 MG TAB PO SCH (09:00)
[2023-08-13] MEDS: PANTOPRAZOLE 40 MG TABLET PO SCH (09:00)
[2023-08-13] MEDS: ASPIRIN 81 MG PO SCH (09:00)
[2023-08-13] MEDS: EZETIMIBE 10 MG TAB PO SCH (09:00)
[2023-08-13] MEDS: LOSARTAN 25 MG TAB PO SCH (09:00)
[2023-08-13] MEDS ORDERED: ASPIRIN 325 MG TAB PO SCH (09:00)
[2023-08-13] MEDS: METOPROLOL SUCCINATE (ER) 25 MG TAB.ER.24H PO SCH (09:00)
[2023-08-13] MEDS: INSULIN DETEMIR (LEVEMIR) 100 UNIT/ML SYR SQ SCH (09:01)
--- NOTE | 2023-08-13 10:09 | P.CRDCN ---
History of Present Illness Consult date: 08/13/23 History of present illness: HISTORY OF PRESENTING ILLNESS Patient is a 63-year-old male with past medical history of CAD s/p CABG in 2002. He follows up with Dr. Silvana Cortes for his cardiology care at [facility]. Reports that he saw him recently not too long ago and he was told that everything has been going well from his cardiac perspective. This time he presented to the hospital because of 2 to 3 days of back pain and left-sided chest pain and substernal pain. He reports that his back and left- sided chest pain gets worse whenever he takes deep breath and feels like a nerve pain shooting through. He denies any resting pain or any pain with changing position area. His substernal pain is reproducible with palpation and gets worse with coughing. He denies any recent viral infections fever or chills. He denies any reduction in his exercise tolerance or endurance. He denies any lightheadedness dizziness palpitations. He denies any worsening shortness of breath or dyspnea on exertion. He does not have any orthopnea or paroxysmal terminal dyspnea symptoms. He reports that he is compliant to his medications. He denies any history of smoking or drug use. He denies any alcohol use. He reports occasional marijuana use. His troponin x 2 were negative, hemoglobin 16.5, glucose was elevated at 246, A1c 9.2, ECG shows sinus bradycardia, right bundle branch block REVIEW OF SYSTEMS 14 point review of system is negative except what is mentioned above in HPI. PHYSICAL EXAMINATION Vital signs reviewed. Head: Normocephalic. Eyes: Sclerae nonicteric. Neck: Brisk carotid upstroke, no jugular venous distention. Lungs: Clear to auscultation. Heart: Regular rate and rhythm, S1-S2, no S3, no murmur or rub. Abdomen: Soft nontender, positive bowel sounds. Extremities: No edema, intact distal pulses. Neuro: Alert, oritented, no focal deficits. Detailed neuro exam was not performed. ASSESSMENT Atypical chest pain, reproducible with palpation and worse with taking deep breath CAD s/p CABG 2002 Type 2 diabetes, poorly controlled PLAN For some reason there is no documented aspirin atorvastatin. Not sure if his medical reconciliation was correct. I will start him on aspirin 81, atorvastatin 40, and losartan 12.5 mg daily (for nephro protection) Patient is getting apprehensive to go home. At this time patient does not have any signs of acute coronary syndrome. He does not have any clinical signs of pericarditis no concerns of arrhythmia or congestive heart failure or fluid overload. He does have poorly controlled diabetes. He reports that he is compliant to his medications but I am not sure about this. I offered to perform a Lexiscan nuclear stress test to evaluate for any myocardial ischemia especially due to his history of CABG but patient would like to follow-up with his ambulance driver paramedic Dr. Cortes and get evaluated for the need of stress test there. Also recommend outpatient event monitor to see if patient's bradycardia is significant and he needs to be on a beta-sara. His chest pain is atypical and is reproducible on palpation. Due to all above, I will let patient to be discharged from cardiology [facility] and recommended him to make a close follow-up with Dr. Cortes for outpatient follow-up. [facility] team to decide diabetes management. Adolfo Ruiz MD, FACC, RPVI Thank you for allowing [facility] to participate in this patient's care. Feel free to reach out in case of any followup questions. Past Medical History Past Medical History: Cancer, Diabetes Mellitus, Hypertension, Musculoskeletal Disorder, Prostate Disorder Additional Past Medical History / Comment(s): hx. prostate cancer 2010, herniated discs, History of Any Multi-Drug Resistant Organisms: None Reported Past Surgical History: Coronary Bypass/CABG, Heart Catheterization With Stent, Orthopedic Surgery, Prostate Surgery Additional Past Surgical History / Comment(s): R ankle, R elbow x3, B knee arthroscopy, L ear, sinus surg., triple bypass 17 yrs. ago, prostatectomy Past Anesthesia/Blood Transfusion Reactions: Postoperative Nausea & Vomiting (PONV) Date of Last Stent Placement:: 2019 Past Psychological History: No Psychological Hx Reported Smoking Status: Former smoker Past Alcohol Use History: None Reported Additional Past Alcohol Use History / Comment(s): <ppd on & off for 40 yrs. Past Drug Use History: None Reported Additional Drug Use History / Comment(s): occasional use - Past Family History Father Family Medical History: Chest Pain / Angina Medications and Allergies Home Medications Medication Instructions Recorded Confirmed Type Metoprolol Succinate (ER) [Toprol 25 mg PO DAILY 03/07/18 08/12/23 History XL] Ezetimibe [Zetia] 10 mg PO DAILY 07/20/22 08/12/23 History cycloSPORINE 0.05% OPHTH SOLN 1 applicator BOTH EYES BID 07/20/22 08/12/23 History [Restasis] metFORMIN HCL 1,000 mg PO BID 07/20/22 08/12/23 History Celecoxib [CeleBREX] 200 mg PO DAILY PRN 08/12/23 08/12/23 History Empagliflozin [Jardiance] 25 mg PO DAILY 08/12/23 08/12/23 History Insulin Degludec [Tresiba 20 units SQ DAILY 08/12/23 08/12/23 History Flextouch U-100 Pen] Pantoprazole Sodium [Protonix] 40 mg PO DAILY 08/12/23 08/12/23 History Pioglitazone [Actos] 15 mg PO DAILY 08/12/23 08/12/23 History prednisoLONE ACETATE 1% OPHTH 1 drops LEFT EYE BID 08/12/23 08/12/23 History [Pred Forte 1%] Aspirin EC [Ecotrin Low Dose] 81 mg PO DAILY 90 Days #90 tab 08/13/23 Rx Atorvastatin [Lipitor] 40 mg PO DAILY 90 Days #90 tab 08/13/23 Rx Losartan [Cozaar] 12.5 mg PO DAILY 90 Days #90 tab 08/13/23 Rx Allergies Allergy/AdvReac Type Severity Reaction Status Date / Time amoxicillin Allergy Unknown Rash/Hives Verified 07/20/22 08:56 Physical Exam Vitals: Vital Signs Temp Pulse Pulse Resp BP BP Pulse Ox 08/13/23 08:29 98.0 F 48 L 16 124/72 96 08/13/23 08:00 50 L 08/13/23 05:42 97.4 F L 52 L 15 144/78 95 08/13/23 02:39 51 L 15 96 08/12/23 23:03 98.1 F 54 L 17 149/58 96 08/12/23 19:28 61 17 120/87 98 08/12/23 18:07 62 18 148/72 96 08/12/23 17:20 57 L 18 137/68 98 08/12/23 16:00 61 18 135/71 96 08/12/23 14:30 61 18 130/65 99 08/12/23 13:04 63 18 118/88 99 08/12/23 12:50 65 08/12/23 12:41 98.5 F 63 16 120/67 96 Intake and Output 08/12/23 08/13/23 08/13/23 22:59 06:59 14:59 Other: # Voids 1 Weight 79.379 kg Results 08/12/23 13:00 08/12/23 13:00 Cardiac Enzymes 08/12/23 08/12/23 08/12/23 Range/Units 13:00 13:00 14:06 AST 29 (17-59) U/L Troponin I <0.012 <0.012 (0.000-0.034) ng/mL 08/12/23 Range/Units 18:55 AST (17-59) U/L Troponin I <0.012 (0.000-0.034) ng/mL Coagulation 08/12/23 Range/Units 13:00 PT 10.6 (10.0-12.5) sec APTT 25.4 (22.0-30.0) sec CBC 08/12/23 Range/Units 13:00 WBC 5.3 (3.8-10.6) k/uL RBC 5.85 (4.30-5.90) m/uL Hgb 16.5 (13.0-17.5) gm/dL Hct 52.1 (39.0-53.0) % Plt Count 234 (150-450) k/uL Comprehensive Metabolic Panel 08/12/23 Range/Units 13:00 Sodium 137 (137-145) mmol/L Potassium 4.6 (3.5-5.1) mmol/L Chloride 105 (98-107) mmol/L Carbon Dioxide 25 (22-30) mmol/L BUN 24 H (9-20) mg/dL Creatinine 0.77 (0.66-1.25) mg/dL Glucose 246 H (74-99) mg/dL Calcium 9.3 (8.4-10.2) mg/dL AST 29 (17-59) U/L ALT 22 (4-49) U/L Alkaline Phosphatase 110 (38-126) U/L Total Protein 6.9 (6.3-8.2) g/dL Albumin 4.2 (3.5-5.0) g/dL Current Medications Generic Name Dose Route Start Last Admin Trade Name Freq PRN Reason Stop Dose Admin Hydrocodone Bitart/Acetaminophen 1 each 08/12/23 16:38 Hydrocodone/Apap 5-325mg 1 Each Tab PO Q6HR PRN Pain Aspirin 81 mg 08/13/23 09:00 08/13/23 09:00 Aspirin 81 Mg PO 81 mg DAILY MINESH Administration Atorvastatin Calcium 40 mg 08/13/23 09:00 08/13/23 09:00 Atorvastatin 40 Mg Tab PO 40 mg DAILY MINESH Administration Cyclosporine 1 drops 08/12/23 21:00 08/13/23 09:00 Cyclosporine 0.05% Ophth 0.4 Ml Droperette BOTH EYES 1 drops BID MINESH Administration Dapagliflozin 10 mg 08/13/23 09:00 08/13/23 09:00 Dapagliflozin Propanediol 10 Mg Tablet PO 10 mg DAILY MINESH Administration Dextrose/Water 25 ml 08/12/23 16:37 Dextrose 50% Syringe 50 Ml IVP PER PROTOCOL PRN Hypoglycemia Protocol Dextrose/Water 50 ml 08/12/23 16:37 Dextrose 50% Syringe 50 Ml IVP PER PROTOCOL PRN Hypoglycemia Protocol Ezetimibe 10 mg 08/13/23 09:00 08/13/23 09:00 Ezetimibe 10 Mg Tab PO 10 mg DAILY MINESH Administration Insulin Aspart 0 unit 08/12/23 17:30 08/13/23 08:54 Insulin Aspart (Novolog) 100 Unit/Ml Vial SQ Not Given ACHS [facility] Protocol Insulin Detemir 20 unit 08/13/23 09:00 08/13/23 09:01 Insulin Detemir (Levemir) 100 Unit/Ml Syr SQ 20 unit DAILY MINESH Administration Losartan Potassium 12.5 mg 08/13/23 09:00 08/13/23 09:00 Losartan 25 Mg Tab PO 12.5 mg DAILY MINESH Administration Metoprolol Succinate 25 mg 08/13/23 09:00 08/13/23 09:00 Metoprolol Succinate (Er) 25 Mg Tab.Er.24h PO 25 mg DAILY [facility] Administration Nitroglycerin 0.4 mg 08/12/23 13:46 Nitroglycerin Sl Tabs 0.4 Mg Tab SUBLINGUAL Q5M PRN Chest Pain Nitroglycerin 1 inch 08/12/23 18:00 08/13/23 05:30 Nitroglycerin Oint 1 Inch/Gm Packet TOPICAL Not Given Q6HR [facility] Pantoprazole Sodium 40 mg 08/13/23 07:30 08/13/23 09:00 Pantoprazole 40 Mg Tablet PO 40 mg [id number] MINESH Administration Prednisolone Acetate 1 drops 08/12/23 21:00 08/13/23 09:01 Prednisolone Acetate 1% Ophth Drops 5 Ml Btl LEFT EYE 1 drops BID MINESH Administration Intake and Output 08/12/23 08/13/23 08/13/23 22:59 06:59 14:59 Other: # Voids 1 Weight 79.379 kg Patient Weight 08/14/23 06:59 Weight 79.379 kg 08/12/23 13:00 08/12/23 13:00
[2023-08-13 10:17] LABS: Chol/HDL Ratio 4.04 Ratio; LDL Cholesterol,Calculated 66.7 mg/dL (0.0-131.0)
--- NOTE | 2023-08-14 12:01 | P.DS ---
Providers Date of admission: 08/12/23 13:47 Expected date of discharge: 08/13/23 Attending physician: Rayray Casas Consults: 08/12/23 13:46 Consult Physician Urgent Consulting Provider: [facility] Consult Reason/Comments: Chest pain Do you want consulting provider notified?: Yes Primary care physician: Claritza Whelan Hospital Course: Final diagnosis Chest pain likely musculoskeletal which is reproducible and worsens with deep breathing. D-dimer is not elevated. Likely secondary to fall about 4 days ago. Ruled out ACS Coronary artery disease with history of CABG and stent placement Hyperglycemia is uncontrolled diabetes type 2 insulin-dependent Dehydration and volume depletion Hypertension History of prostate cancer s/p surgery in 2010 Currently everyday smoker COPD not in exacerbation GI DVT prophylaxis Discharge disposition Patient is being discharged in a stable condition with guarded prognosis to home. Patient will follow-up with Dr. Whelan in the outpatient setting upon discharge. Patient is to continue with close outpatient follow-up with cardiology as scheduled. Total time taken is greater than 35 minutes. Hospital course This is a 63-year-old male who was recently admitted with chest pain being closely monitored. Patient evaluated by cardiology and likely musculoskeletal as patient recently fell a few days ago and having back pain that had been radiating to his chest. Patient with negative troponins has been evaluated and cleared by cardiology for discharge today. Patient instructed to follow-up with teacher industrial arts outpatient as well as primary care provider. Patient reports to feeling improved and would like to go home. Please refer to cardiology notes for further HPI. Currently no reports of chest pain, shortness of breath, or palpitations. Patient is afebrile. No reports of nausea or vomiting and patient is tolerating diet. Patient will be discharged home today. Guarded prognosis Physical exam: Gen: This is a 63-year-old male who is awake, alert and oriented x 3, well- developed, well-nourished, elderly appearing HEENT: Head is atraumatic, normocephalic. Pupils equal, round. Sclerae is anicteric. NECK: Supple. No JVD. No lymphadenopathy. No thyromegaly. LUNGS: Clear to auscultation. No wheezes or rhonchi. No intercostal retractions. HEART: Regular rate and rhythm. No murmur. ABDOMEN: Soft. Bowel sounds are present. No masses. No tenderness. EXTREMITIES: No pedal edema. No calf tenderness. NEUROLOGICAL: Patient is awake, alert and oriented x3. Cranial nerves 2 through 12 are grossly intact. Please refer to medication reconciliation sheet for a list of medications. The impression and plan of care has been dictated by Maggie Madsen, Nurse Practitioner as directed. Dr. Augusto MD I have performed a history and examination and MDM of this patient, discussed the same with the dictator, and agree with the dictator's assessment and plan as written ,documented as a scribe. Based on total visit time, I have performed more than 50% of the visit. Patient Condition at Discharge: Fair Plan - Discharge Summary Discharge Rx Participant: Yes New Discharge Prescriptions: New Aspirin EC [Ecotrin Low Dose] 81 mg PO DAILY 90 Days #90 tab Losartan [Cozaar] 12.5 mg PO DAILY 90 Days #90 tab Atorvastatin [Lipitor] 40 mg PO DAILY 90 Days #90 tab Continue Metoprolol Succinate (ER) [Toprol XL] 25 mg PO DAILY metFORMIN HCL 1,000 mg PO BID prednisoLONE ACETATE 1% OPHTH [Pred Forte 1%] 1 drops LEFT EYE BID Insulin Degludec [Tresiba Flextouch U-100 Pen] 20 units SQ DAILY cycloSPORINE 0.05% OPHTH SOLN [Restasis] 1 applicator BOTH EYES BID Ezetimibe [Zetia] 10 mg PO DAILY Pioglitazone [Actos] 15 mg PO DAILY Celecoxib [CeleBREX] 200 mg PO DAILY PRN PRN Reason: Pain Pantoprazole Sodium [Protonix] 40 mg PO DAILY Empagliflozin [Jardiance] 25 mg PO DAILY Discharge Medication List Metoprolol Succinate (ER) [Toprol XL] 25 mg PO DAILY 03/07/18 [History] Ezetimibe [Zetia] 10 mg PO DAILY 07/20/22 [History] cycloSPORINE 0.05% OPHTH SOLN [Restasis] 1 applicator BOTH EYES BID 07/20/22 [History] metFORMIN HCL 1,000 mg PO BID 07/20/22 [History] Celecoxib [CeleBREX] 200 mg PO DAILY PRN 08/12/23 [History] Empagliflozin [Jardiance] 25 mg PO DAILY 08/12/23 [History] Insulin Degludec [Tresiba Flextouch U-100 Pen] 20 units SQ DAILY 08/12/23 [History] Pantoprazole Sodium [Protonix] 40 mg PO DAILY 08/12/23 [History] Pioglitazone [Actos] 15 mg PO DAILY 08/12/23 [History] prednisoLONE ACETATE 1% OPHTH [Pred Forte 1%] 1 drops LEFT EYE BID 08/12/23 [History] Aspirin EC [Ecotrin Low Dose] 81 mg PO DAILY 90 Days #90 tab 08/13/23 [Rx] Atorvastatin [Lipitor] 40 mg PO DAILY 90 Days #90 tab 08/13/23 [Rx] Losartan [Cozaar] 12.5 mg PO DAILY 90 Days #90 tab 08/13/23 [Rx] Follow up Appointment(s)/Referral(s): Claritza Whelan DO [Primary Care Provider] - 1-2 days Ever Garcia DO [REFERRING] - 1 Week Activity/Diet/Wound Care/Special Instructions: Activity limited until follow-up Follow-up with primary teacher industrial arts this week Follow-up primary care provider on discharge Continue taking medications as prescribed Monitor all blood sugars and keep a diary of all readings for primary, cardiology follow-up Continue heart healthy diabetic diet Discharge Disposition: HOME SELF-CARE
== END 2023-08-13 10:36 | disposition home or self-care (01) ==
LOC: EC 12:16 → 6NMEDSUR 13:47
PROVIDERS: ADMIT Internal Medicine; ATTEND Internal Medicine
DX: R07.89 Other chest pain (principal); E86.0 Dehydration; R07.2 Precordial pain; I10 Essential (primary) hypertension; E11.65 Type 2 diabetes mellitus with hyperglycemia; J44.9 Chronic obstructive pulmonary disease, unspecified; M54.9 Dorsalgia, unspecified; E78.00 Pure hypercholesterolemia, unspecified; R00.1 Bradycardia, unspecified; I45.10 Unspecified right bundle-branch block; F17.200 Nicotine dependence, unspecified, uncomplicated; Z79.4 Long term (current) use of insulin; Z79.84 Long term (current) use of oral hypoglycemic drugs; Z79.899 Other long term (current) drug therapy; Z88.0 Allergy status to penicillin; Z95.1 Presence of aortocoronary bypass graft; Z95.5 Presence of coronary angioplasty implant and graft; Z85.46 Personal history of malignant neoplasm of prostate; W19.XXXA Unspecified fall, initial encounter
CPT/HCPCS: 96374; 96375; 99285; 36415; 93005 ×2; 85379; 80061; 80053; 83735; 84484; 85025; 85610; 85730; 83036; 71046; G0378 ×2; J2270; J1885